=== PATIENT | female | born 1980 | race Caucasian/White ===

== ENCOUNTER 2020-07-29 13:18 | Outpatient (REF) | payer OTHER, SELFPAY ==
[2020-08-01 07:26] LABS: Thyroglobulin Antibody <1 IU/mL (<=1); Thyroglobulin Level 18.5 ng/mL
== END 2020-07-29 13:19 | disposition home or self-care (01) ==
LOC: HO.10HDL 13:18
PROVIDERS: Visit Provider Internal Medicine Endocrinology, Diabetes & Metabolism
DX: E89.0 Postprocedural hypothyroidism (principal)
CPT/HCPCS: 36415; 84432; 84439; 84443; 86800

== ENCOUNTER → 2020-08-28 10:57 | Outpatient (BNVA) | payer OTHER, SELFPAY | PROVIDERS: PCP Physician Assistant; Referring Provider Physician Assistant; Visit Provider Internal Medicine Endocrinology, Diabetes & Metabolism | DX: Z76.89 Persons encountering health services in other specified circumstances (principal) ==

== ENCOUNTER 2020-08-28 11:55 | Outpatient (REF) | payer OTHER, SELFPAY ==
[2020-08-28 14:37] LABS: Free T4 (Free Thyroxine) 1.02 ng/dL (0.71-1.85); Thyroid Stimulating Hormone 0.95 uIU/mL (0.32-4.0)
[2020-09-03 05:33] LABS: Thyroglobulin Antibody <1 IU/mL (<=1); Thyroglobulin Level 15.1 ng/mL
== END 2020-08-28 11:56 | disposition home or self-care (01) ==
LOC: HO.10HDL 11:55
PROVIDERS: Visit Provider Internal Medicine Endocrinology, Diabetes & Metabolism
DX: C73 Malignant neoplasm of thyroid gland (principal)
CPT/HCPCS: 36415; 84432; 84439; 84443; 86800

== ENCOUNTER 2020-09-04 11:16 | Outpatient (REF) | payer OTHER, SELFPAY ==
--- NOTE | 2020-09-04 11:37 | US_ITS ---
EXAMINATION: US THYROID CLINICAL INFORMATION: Malignant neoplasm of thyroid gland. Right thyroidectomy. COMPARISON: Ultrasound soft tissue head/neck dated 10/26/2018 and thyroid ultrasound dated 01/19/2018 TECHNIQUE: Linear transducer aceves-scale and color Doppler examination with attention to the region of the thyroid. FINDINGS: SIZE: Measurements of the thyroid lobes and nodules are given in sagittal, anteroposterior and transverse dimensions respectively. Right Thyroid Lobe: Removed. Left Thyroid Lobe: 4.5 x 1.2 x 2.1 cm, volume 5.9 mL. Previously 4.8 x 1.4 x 1.4 cm, volume 5.2 mL. Parenchyma: The gland echotexture is mildly heterogeneous. Thyroid vascularity is increased. Isthmus: 0.2 cm in maximum AP dimension. Previously 0.2 cm. RIGHT THYROID LOBE: Removed ISTHMUS: No nodules. LEFT THYROID LOBE: There is 1 nodule seen. 1. Location: Lower. Size: 1.3 x 0.7 x 1.2 cm. Previous: 1.2 x 0.6 x 1.0 cm. Nodule characteristics: Isoechoic, smooth margin, no calcification and positive intranodular flow. NODES: There is a right level 3 lymph node that measures 1.8 x 0.4 x 1.3 cm. This is slightly enlarged and demonstrates normal ultrasound morphology and flow. There is a 2.3 x 0.6 x 2 cm left level 2 lymph node. This is enlarged. This demonstrates normal ultrasound morphology and flow. There is a 1 x 0.4 x 0.8 cm left level 3 lymph node. This is normal in size and demonstrates normal ultrasound morphology and flow. There are additional smaller bilateral cervical lymph nodes. US/US thyroid IMPRESSION: Stable left thyroid nodule. Bilateral cervical lymphadenopathy adjacent to the thyroid gland. There are bilateral enlarged level 3 cervical lymph nodes.
== END 2020-09-04 11:17 | disposition home or self-care (01) ==
LOC: HO.HMGCX 11:16
PROVIDERS: PCP Physician Assistant; Visit Provider Internal Medicine Endocrinology, Diabetes & Metabolism
DX: C73 Malignant neoplasm of thyroid gland (principal)
CPT/HCPCS: 76536

== ENCOUNTER 2020-12-23 13:49 | Outpatient (REF) | payer OTHER, SELFPAY ==
[2020-12-23 16:03] LABS: COVID-19 Test Negative (Negative)
== END 2020-12-23 13:50 | disposition home or self-care (01) ==
LOC: HO.LAB 13:49
PROVIDERS: Visit Provider Internal Medicine
DX: Z20.822 Contact with and (suspected) exposure to COVID-19 (principal)
CPT/HCPCS: 36415; 87635; C9803

== ENCOUNTER 2020-12-27 09:37 | Outpatient (REF) | payer OTHER, SELFPAY ==
[2020-12-27 10:24] LABS: Hematocrit 38.5 % (37-47); Hemoglobin 12.9 g/dl (12.0-16.0); Mean Corpuscular HGB Conc 33.5 g/dl (31.0-35.0); Mean Corpuscular Hemoglobin 30.1 pg (27.0-33.0); Mean Platelet Volume 9.9 fL (9.4-12.3); Platelet Count 253 X10*3/uL (160-400); Red Blood Count 4.28 X10*6/uL (4.20-5.50); Red Cell Distribution Width 11.9 % (11.0-16.0); White Blood Count 6.1 X10*3/uL (4.8-10.8)
[2020-12-27 10:52] LABS: Alanine Aminotransferase 12 U/L (0-31); Albumin Level 4.6 g/dL (3.5-5.0); Alkaline Phosphatase 49 U/L (39-117); Aspartate Amino Transferase 17 U/L (5-31); Bilirubin Direct 0.2 mg/dL (0.0-0.5); Bilirubin Total 0.8 mg/dL (0.0-1.0); Iron 113 mcg/dL (30-160); Percent Iron Saturation 34 % (15-50); Total Iron Binding Capacity 329 mcg/dL (228-428); Total Protein 7.4 g/dL (6.5-8.0); Unsaturated Iron Binding 216 ug/dL
[2020-12-27 11:05] LABS: Free T4 (Free Thyroxine) 0.99 ng/dL (0.71-1.85); Thyroid Stimulating Hormone 2.79 uIU/mL (0.32-4.0)
[2020-12-31 02:37] LABS: Thyroglobulin Antibody <1 IU/mL (<=1); Thyroglobulin Level 7.2 ng/mL
== END 2020-12-27 09:38 | disposition home or self-care (01) ==
LOC: HO.10HDL 09:37
PROVIDERS: Absent Provider Physician Assistant; Visit Provider Internal Medicine Endocrinology, Diabetes & Metabolism
DX: C73 Malignant neoplasm of thyroid gland (principal); D50.9 Iron deficiency anemia, unspecified; G44.209 Tension-type headache, unspecified, not intractable; I10 Essential (primary) hypertension
CPT/HCPCS: 36415; 80076; 83540; 84432; 84439; 84443; 85027; 86800

== ENCOUNTER 2021-01-13 09:58 | Outpatient (REF) | payer OTHER, SELFPAY ==
[2021-01-13 10:20] LABS: COVID-19 Test Negative (Negative)
== END 2021-01-13 09:59 | disposition home or self-care (01) ==
LOC: HO.EMPCOV 09:58
PROVIDERS: Visit Provider Internal Medicine
DX: Z20.822 Contact with and (suspected) exposure to COVID-19 (principal)
CPT/HCPCS: 36415; 87635; C9803

== ENCOUNTER → 2021-01-22 09:35 | Outpatient (BNVA) | payer OTHER, SELFPAY | PROVIDERS: PCP Physician Assistant; Visit Provider Internal Medicine Endocrinology, Diabetes & Metabolism ==

== ENCOUNTER 2021-01-24 08:57 | Outpatient (REF) | payer OTHER, SELFPAY ==
[2021-01-24 11:01] LABS: Free T4 (Free Thyroxine) 1.07 ng/dL (0.71-1.85); Thyroid Stimulating Hormone 1.89 uIU/mL (0.32-4.0)
[2021-01-28 07:56] LABS: Thyroglobulin Antibody <1 IU/mL (<=1)
== END 2021-01-24 08:58 | disposition home or self-care (01) ==
LOC: HO.10HDL 08:57
PROVIDERS: Visit Provider Internal Medicine Endocrinology, Diabetes & Metabolism
DX: C73 Malignant neoplasm of thyroid gland (principal); E04.1 Nontoxic single thyroid nodule
CPT/HCPCS: 36415; 84432; 84439; 84443; 86800

== ENCOUNTER 2021-01-30 08:01 | Outpatient (REF) | payer OTHER, SELFPAY ==
--- NOTE | 2021-01-30 08:39 | PM.OP ---
Brief Operative Note Date of Service: 01/30/21 Pre-op diagnosis: PREVIOUS HISTORY OF PAPILLARY THYROID CANCER STATUS POST RIGHT HEMITHYROIDECTOMY, HAS A LEFT LOWER POLE NODULE. Post-op diagnosis: same Procedure: This procedure was explained to the patient. Alternatives, risks and benefits were discussed. Written consent was obtained. After sterile preparation of the skin, fine-needle aspiration biopsy of left lower pole thyroid nodule size 1.3 x 0.7 x 1.2 cm was performed under direct ultrasound guidance to confirm accurate needle placement. Three passes were performed with 27 gauge needles. Sample was submitted to cytology, initial cytology reading was adequate. Two passes were dedicated for [facility] genomic sequencing cargo operations agent test. Patient tolerated procedure well. Aftercare instructions were provided. This nodule is very in inferior to the thyroid. On realtime ultrasound looks to me that this could be a parathyroid gland instead of a nodule. Pathology adequacy reports cells are not typical follicular cell. We will do a stained for PTH to confirm if this is a parathyroid gland. Impression: uncomplicated fine-needle aspiration biopsy of left lower thyroid nodule under direct ultrasound guidance. Surgeon: Izzy De La Garza MD Anesthesia: local (Lidocaine 1% 1 mL) Was an Corporate Investigator used for this Procedure?: No Estimated blood loss (mL): 0 Condition: stable Disposition: same day
== END 2021-01-30 08:02 | disposition home or self-care (01) ==
LOC: HO.US 08:01
PROVIDERS: Visit Provider Internal Medicine Endocrinology, Diabetes & Metabolism
DX: E04.1 Nontoxic single thyroid nodule (principal); C73 Malignant neoplasm of thyroid gland
CPT/HCPCS: 10005; 88172; 88173; 88177; 88342

== ENCOUNTER 2021-06-06 08:52 | Outpatient (REF) | payer OTHER, SELFPAY ==
[2021-06-06 10:23] LABS: MANUAL DIFF FLAG NO
[2021-06-06 10:27] LABS: Basophils Absolute Auto 0.1 X10*3/uL (0.0-0.2); Basophils Percent Auto 0.9 % (0-2); Eosinophils Absolute Auto 0.1 X10*3/uL (0.0-0.4); Eosinophils Percent Auto 2.2 % (0-4); Hematocrit 37.5 % (37-47); Hemoglobin 12.5 g/dl (12.0-16.0); Imm Gran Abs Auto 0.01 X10*3/uL (0.00-0.03); Imm Gran Pct Auto 0.2 % (0.0-0.4); Lymphocytes Absolute Auto 2.1 X10*3/uL (1.2-4.9); Lymphocytes Percent Auto 38.9 % (20-40); Mean Corpuscular HGB Conc 33.3 g/dl (31.0-35.0); Mean Corpuscular Volume 90.1 fL (80-98); Monocytes Absolute Auto 0.4 X10*3/uL (0.1-1.2); Monocytes Percent Auto 6.8 % (2-11); Neutrophils Absolute Auto 2.8 X10*3/uL (2.0-8.3); Platelet Count 263 X10*3/uL (160-400); Red Blood Count 4.16 X10*6/uL (4.20-5.50); Red Cell Distribution Width 12.1 % (11.0-16.0); White Blood Count 5.5 X10*3/uL (4.8-10.8)
[2021-06-06 10:54] LABS: Alanine Aminotransferase 11 U/L (0-31); Albumin Level 4.5 g/dL (3.5-5.0); Alkaline Phosphatase 45 U/L (39-117); Anion Gap 10 (12-20); Aspartate Amino Transferase 15 U/L (5-31); Bilirubin Total 0.8 mg/dL (0.0-1.0); Blood Urea Nitrogen 15 mg/dL (9-16); Calcium 9.4 mg/dL (8.4-10.2); Carbon Dioxide 28 mmol/L (22-29); Chloride 105 mmol/L (96-108); Cholesterol 212 mg/dL; Estimated Glomerular Filt Rate > 60; Glucose Fasting 79 mg/dL (60-99); HDL Cholesterol 49 mg/dL; Iron 141 mcg/dL (30-160); LDL Cholesterol Calculated 148 mg/dl; Percent Iron Saturation 44 % (15-50); Rheumatoid Factor < 15.0 IU/mL (<15.0); Sodium 139 mmol/L (135-145); Total Iron Binding Capacity 318 mcg/dL (228-428); Total Protein 7.3 g/dL (6.5-8.0); Triglycerides 77 mg/dL; Unsaturated Iron Binding 177 ug/dL
[2021-06-06 11:03] LABS: Estimated Average Glucose 97 mg/dL
[2021-06-06 11:15] LABS: Ferritin 28 ng/mL (10-122); TSH reflex Free T4 1.74 uIU/mL (0.32-4.0); Vitamin D 25-OH Total 29.2 ng/mL (>30)
[2021-06-06 11:24] LABS: Vitamin B12 495 pg/mL (200-900)
[2021-06-08 05:21] LABS: Lyme Abs Screen <0.90 index
[2021-06-08 18:57] LABS: Follicle Stimulating Hormone 6.5 mIU/mL; Lutenizing Hormone 4.8 mIU/mL; Triiodothyronine T3 Free 2.8 pg/mL (2.3-4.2)
[2021-06-09 13:45] LABS: CRP High Sensitivity <0.3 mg/L
[2021-06-09 16:12] LABS: Anti Nuclear Antibody Screen NEGATIVE (NEGATIVE)
[2021-06-09 19:32] LABS: DHEA Sulfate 119 mcg/dL (23-266); Thyroglobulin Antibodies 1 IU/mL (< or = 1); Thyroid Peroxidase Antibodies 168 IU/mL (<9)
[2021-06-10 01:12] LABS: Insulin Level Total 4.1 uIU/mL
[2021-06-11 13:36] LABS: Rocky Mtn. Spot. Fever IgG Ab Not Detected (Not Detected); Rocky Mtn.Spot. Fever IgM Ab Not Detected (Not Detected)
== END 2021-06-06 08:53 | disposition home or self-care (01) ==
LOC: HO.10HDL 08:52
PROVIDERS: Visit Provider Nurse Practitioner Family
DX: Z13.89 Encounter for screening for other disorder (principal)
CPT/HCPCS: 36415; 80053; 80061; 82306; 82607; 82627; 82672; 82728; 83001; 83002; 83036; 83525; 83540; 84402; 84403; 84443; 84481; 85025; 86038; 86039; 86141; 86376; 86431; 86617; 86618; 86757; 86800

== ENCOUNTER 2021-06-12 09:58 | Outpatient (REF) | payer OTHER, SELFPAY ==
--- NOTE | ~2021-06-12 | US_ITS ---
EXAMINATION: US THYROID CLINICAL INFORMATION: Malignant neoplasm of thyroid. Follow up nodules. COMPARISON: Ultrasound soft tissue head/neck thyroid dated 09/04/2020 and 01/19/2018. TECHNIQUE: Linear transducer grayscale and color Doppler examination with attention to the region of the thyroid. FINDINGS: SIZE: Measurements of the solitary left thyroid lobe and nodules are given in sagittal, anteroposterior and transverse dimensions respectively. Right Thyroid Lobe: Surgically absent. Left Thyroid Lobe: 3.5 x 1.2 x 1.4 cm, volume 2.9 mL. Previously 4.5 x 1.2 x 2.1 cm, volume 5.9 mL. Parenchyma: The gland echotexture is mildly heterogeneous. Thyroid vascularity is normal. Isthmus: 0.2 cm in maximum AP dimension. Previously 0.2 cm. No focal thyroid nodule is seen. There is a 1.1 x 0.6 x 1 cm lesion iso to slightly hypoechoic to the thyroid gland inferior to the left lobe. This demonstrates some vascularity. This measured 1.3 x 0.7 x 1.2 cm on prior exam and is not appreciably changed. This was found to represent a parathyroid tissue on fine-needle aspiration January 2021. NODES: There is a right level 2/submandibular lymph node. This measures 2.1 x 0.3 x 1.5 cm compared to 1.8 x 0.4 x 1.3 cm is not appear appreciably changed. There is a left level 2/submandibular lymph node. This measures 2.3 x 0.5 x 2.2 cm compared to 2.3 x 0.6 x 2 cm on prior exam does not appear appreciably changed. There is a left level 3 lymph node measures 1 x 0.4 x 0.8 cm. This measured 1.1 x 0.4 x 0.9 cm on prior exam and does not appear appreciably changed.. US/US thyroid IMPRESSION: Post right thyroidectomy. Stable appearing bilateral cervical lymph nodes and nodule inferior to the left lobe that was found to represent parathyroid gland. ACR TI-RADS RECOMMENDATION REFERENCE: Ultrasound-guided fine-needle aspiration, followup ultrasound, no further follow up. * TR1 (0 point) and TR 2 (2 points): No FNA or follow up * TR3 (3 points): FNA if more than or equal to 2.5 cm in maximum dimension, followup ultrasound in 1, 3 and 5 years if 1.5 to 2.4 cm in maximum dimension. * TR4 (4-6 points): FNA if more than or equal to 1.5 cm in maximum dimension, followup ultrasound in 1, 2, 3 and 5 years if 1 to 1.4 cm in maximum dimension. * TR5 (more than or equal to 7 points): FNA if more than or equal to 1 cm in maximum dimension, followup ultrasound every year for 5 years if 0.5 to 0.9 cm in maximum dimension. * TR3, TR4 or TR5 nodules that are below the size threshold for follow up receive no follow up.
== END 2021-06-12 09:59 | disposition home or self-care (01) ==
LOC: HO.US 09:58
PROVIDERS: Visit Provider Nurse Practitioner Family
DX: C73 Malignant neoplasm of thyroid gland (principal)
CPT/HCPCS: 76536

== ENCOUNTER 2021-07-29 08:05 | Outpatient (REF) | payer OTHER, SELFPAY ==
[2021-07-29 09:07] LABS: HCG Quantitative < 2 mIU/mL
== END 2021-07-29 08:06 | disposition home or self-care (01) ==
LOC: HO.LAB 08:05
PROVIDERS: PCP Nurse Practitioner Family; Visit Provider Nurse Practitioner Family
DX: N92.5 Other specified irregular menstruation (principal)
CPT/HCPCS: 36415; 84702

== ENCOUNTER 2021-08-15 17:24 | Emergency (ER) | payer OTHER, SELFPAY ==
[2021-08-15 17:45] VITALS: BP 123/78; PULSE 95; RESP 20; O2SAT 99; BMI 22.6
--- NOTE | 2021-08-15 20:36 | ED_ITS ---
HPI - Nausea/Vomiting/Diarrhea General Chief complaint: Nausea/Vomiting/Diarrhea Stated complaint: nausea dizzy, body aches ,rash Time Seen by Provider: 08/15/21 20:10 Source: patient Mode of arrival: ambulatory Limitations: no limitations History of Present Illness HPI Narrative: Patient with nausea vomiting body aches rash on the left side of the face for last 5 days no fever no chills no cough no shortness of breath patient already been vaccinated against COVID no other family member sick Related Data Home Medications Medication Instructions Recorded Confirmed escitalopram oxalate 10 mg tablet 10 mg PO DAILY 08/28/20 04/24/21 lisdexamfetamine 30 mg capsule 30 mg PO QAM 04/24/21 04/24/21 (Vyvanse) Previous Rx's Medication Instructions Recorded levothyroxine 88 mcg tablet 88 mcg PO QAM #90 tab 06/25/21 diphenhydramine HCl 25 mg capsule 25 mg PO Q6H PRN #30 cap 08/15/21 (Benadryl) ondansetron 4 mg disintegrating 4 mg PO Q6-8H PRN #7 tab 08/15/21 tablet prednisone 20 mg tablet 40 mg PO DAILY #10 tab 08/15/21 Allergies Allergy/AdvReac Type Severity Reaction Status Date / Time No Known Allergies Allergy Verified 04/24/21 16:10 Review of Systems Review of Systems: Yes all other systems are reviewed and are negative [facility] Past Medical History Medical History (Updated 08/15/21 @ 22:56 by Marquis Abdalla MD) ADHD Anxiety Facial skin lesion Family history of colon cancer Family history of skin cancer Post-surgical hypothyroidism Primary thyroid cancer Surgical History History of tympanostomy tube placement Hx of adenoidectomy Hx of thyroidectomy Hx of tonsillectomy Hx of wisdom tooth extraction Family History Family History Father No problems noted. Mother Heart murmur Diabetes mellitus Stroke Social History Social History Housing: House Patient Tobacco Use Status: Never used Tobacco e-Cigarette/Vaping Use: Never Used Second Hand Smoke Exposure: No Use of substances other than those prescribed or required for medical reasons: No Advance Directives: No Advance Directives Information Provided: Yes Current occupational status: employed Physical Exam Vital Signs: Vital Signs: Last Vital Signs Temp 97.7 F 08/15/21 21:20 Pulse 66 08/15/21 21:20 Resp 18 08/15/21 21:20 BP 101/62 08/15/21 21:20 Pulse Ox 100 08/15/21 21:20 BMI result Body Mass Index 22.6 Appearance: Alert. Oriented X3. Mild distress Eyes: PERRLA, no pallor icterus ENT: Pharynx normal. Oral Mucosa moist Neck: Normal inspection. Neck supple. CVS: Normal heart rate and rhythm. Pulses normal. Respiratory: No respiratory distress. Equal air entry bilateral, no wheez ing/rales/rhonchi Abdomen: Soft and nontender. Bowel sounds are present, no severe tenderness Skin: Skin warm and dry. Erythematous rash on the left side of the face Normal skin turgor. Extremities: No lower extremity edema. No calf tenderness Neuro: Oriented X 3. MDM - Nausea/Vomiting/Diarrhea MDM Narrative Medical decision making narrative: Patient feeling much better now rash has improved slightly no nausea no vomiting discharge patient home on Zofran , prednisone and Benadryl Lab Data Attestation: I reviewed the patient's lab results. Result diagrams: 08/15/21 20:38 08/15/21 20:38 Labs: Lab Results 08/15/21 08/15/21 08/15/21 Range/Units 20:38 20:38 20:38 WBC 4.9 (4.8-10.8) X10*3/uL RBC 4.53 (4.20-5.50) X10*6/uL Hgb 13.9 (12.0-16.0) g/dl Hct 40.7 (37.0-47.0) % MCV 89.8 (80.0-98.0) fL MCH 30.7 (27.0-33.0) pg MCHC 34.2 (31.0-35.0) g/dl RDW 11.9 (11.0-16.0) % Plt Count 204 (160-400) X10*3/uL MPV 9.3 L (9.4-12.3) fL Immature Gran % (Auto) 0.4 (0.0-0.4) % Neut % (Auto) 70.3 (45-73) % Lymph % (Auto) 17.0 L (20-40) % Liberty % (Auto) 10.9 (2-11) % Eos % (Auto) 1.0 (0-4) % Baso % (Auto) 0.4 (0-2) % Lymph # (Auto) 0.8 L (1.2-4.9) X10*3/uL Liberty # (Auto) 0.5 (0.1-1.2) X10*3/uL Eos # (Auto) 0.1 (0.0-0.4) X10*3/uL Baso # (Auto) 0.0 (0.0-0.2) X10*3/uL Abs Immat Gran (auto) 0.02 (0.00-0.03) X10*3/uL Absolute Neuts (auto) 3.5 (2.0-8.3) x10*3/uL Absolute Nucleated RBC 0.000 (0.0-0.012) X10*3/uL Nucleated RBC % (auto) 0.0 (0.0-0.2) /100WBC Sodium 139 (135-145) mmol/L Potassium 3.8 (3.3-5.1) mmol/L Chloride 105 (96-108) mmol/L Carbon Dioxide 26 (22-29) mmol/L Anion Gap 12 (12-20) BUN 15 (9-16) mg/dL Creatinine 0.76 (0.5-1.4) mg/dL Estim Creat Clear Calc 75.7 Estimated GFR > 60 Random Glucose 98 (60-115) mg/dL Calcium 8.7 D (8.4-10.2) mg/dL Magnesium 1.9 (1.6-2.6) mg/dL Total Bilirubin 0.6 (0.0-1.0) mg/dL AST 19 (5-31) U/L ALT 17 (0-31) U/L Alkaline Phosphatase 49 (39-117) U/L Total Protein 6.8 (6.5-8.0) g/dL Albumin 4.2 (3.5-5.0) g/dL Urine Color Urine Appearance Urine pH (5.0-8.0) Ur Specific Arco (1.005-1.025) Urine Protein (NEG-TRACE) MG/DL Urine Glucose (UA) (NEG) MG/DL Urine Ketones (NEG) MG/DL Urine Blood (NEG) Urine Nitrite (NEG) Ur Leukocyte Esterase (NEG) Urine Test (NEGATIVE) COVID-19 (CASSIDY) Negative (Negative) COVID-19 Clin Com See Note 08/15/21 08/15/21 Range/Units 22:00 22:00 WBC (4.8-10.8) X10*3/uL RBC (4.20-5.50) X10*6/uL Hgb (12.0-16.0) g/dl Hct (37.0-47.0) % MCV (80.0-98.0) fL MCH (27.0-33.0) pg MCHC (31.0-35.0) g/dl RDW (11.0-16.0) % Plt Count (160-400) X10*3/uL MPV (9.4-12.3) fL Immature Gran % (Auto) (0.0-0.4) % Neut % (Auto) (45-73) % Lymph % (Auto) (20-40) % Liberty % (Auto) (2-11) % Eos % (Auto) (0-4) % Baso % (Auto) (0-2) % Lymph # (Auto) (1.2-4.9) X10*3/uL Liberty # (Auto) (0.1-1.2) X10*3/uL Eos # (Auto) (0.0-0.4) X10*3/uL Baso # (Auto) (0.0-0.2) X10*3/uL Abs Immat Gran (auto) (0.00-0.03) X10*3/uL Absolute Neuts (auto) (2.0-8.3) x10*3/uL Absolute Nucleated RBC (0.0-0.012) X10*3/uL Nucleated RBC % (auto) (0.0-0.2) /100WBC Sodium (135-145) mmol/L Potassium (3.3-5.1) mmol/L Chloride (96-108) mmol/L Carbon Dioxide (22-29) mmol/L Anion Gap (12-20) BUN (9-16) mg/dL Creatinine (0.5-1.4) mg/dL Estim Creat Clear Calc Estimated GFR Random Glucose (60-115) mg/dL Calcium (8.4-10.2) mg/dL Magnesium (1.6-2.6) mg/dL Total Bilirubin (0.0-1.0) mg/dL AST (5-31) U/L ALT (0-31) U/L Alkaline Phosphatase (39-117) U/L Total Protein (6.5-8.0) g/dL Albumin (3.5-5.0) g/dL Urine Color YELLOW Urine Appearance CLEAR Urine pH 6.0 (5.0-8.0) Ur Specific Arco >= 1.030 H (1.005-1.025) Urine Protein TRACE (NEG-TRACE) MG/DL Urine Glucose (UA) NEG (NEG) MG/DL Urine Ketones >=80 (NEG) MG/DL Urine Blood NEG (NEG) Urine Nitrite NEG (NEG) Ur Leukocyte Esterase NEG (NEG) Urine Test NEGATIVE (NEGATIVE) COVID-19 (CASSIDY) (Negative) COVID-19 Clin Com Discharge Plan Discharge Clinical Impression: Gastroenteritis Allergic reaction Qualifiers: Encounter type: initial encounter Qualified Code(s): T78.40XA - Allergy, unspecified, initial encounter Patient Disposition: Home, Self-Care Instructions: Acute Nausea and Vomiting (ED), General Allergic Reaction (ED) Additional Instructions: Drink plenty of fluids Medication for nausea Benadryl and prednisone for allergic reaction etiology not clear Prescriptions: New prednisone 20 mg tablet 40 mg PO DAILY Qty: 10 RF: 0 ondansetron 4 mg tablet,disintegrating 4 mg PO Q6-8H PRN (Reason: nausea and vomiting) Qty: 7 RF: 0 diphenhydramine HCl [Benadryl] 25 mg capsule 25 mg PO Q6H PRN (Reason: allergic reaction) Qty: 30 RF: 0 No Action levothyroxine 88 mcg tablet 88 mcg PO QAM Qty: 90 RF: 1 Vyvanse 30 mg capsule 30 mg PO QAM RF: 0 escitalopram oxalate 10 mg tablet 10 mg PO DAILY RF: 0
[2021-08-15] MEDS: 0.9 % Sodium Chloride 1,000 ML 999 ML IVCONT (20:39)
[2021-08-15] MEDS: diphenhydrAMINE HCL 50 MG/ML VIAL 25 MG IVPUSH (20:39)
[2021-08-15] MEDS: ondansetron HCL 4 MG/2 ML VIAL IVPUSH (20:39)
[2021-08-15] MEDS: Ketorolac Tromethamine 30 MG/ML VIAL IVPUSH (20:39)
[2021-08-15 20:45] LABS: MANUAL DIFF FLAG NO
[2021-08-15 20:46] LABS: Basophils Percent Auto 0.4 % (0-2); Eosinophils Absolute Auto 0.1 X10*3/uL (0.0-0.4); Hematocrit 40.7 % (37.0-47.0); Hemoglobin 13.9 g/dl (12.0-16.0); Imm Gran Abs Auto 0.02 X10*3/uL (0.00-0.03); Imm Gran Pct Auto 0.4 % (0.0-0.4); Lymphocytes Absolute Auto 0.8 X10*3/uL (1.2-4.9); Mean Corpuscular HGB Conc 34.2 g/dl (31.0-35.0); Mean Corpuscular Hemoglobin 30.7 pg (27.0-33.0); Mean Corpuscular Volume 89.8 fL (80.0-98.0); Mean Platelet Volume 9.3 fL (9.4-12.3); Monocytes Absolute Auto 0.5 X10*3/uL (0.1-1.2); Monocytes Percent Auto 10.9 % (2-11); Neutrophils Absolute Auto 3.5 x10*3/uL (2.0-8.3); Neutrophils Percent Auto 70.3 % (45-73); Platelet Count 204 X10*3/uL (160-400); Red Blood Count 4.53 X10*6/uL (4.20-5.50); Red Cell Distribution Width 11.9 % (11.0-16.0); White Blood Count 4.9 X10*3/uL (4.8-10.8)
[2021-08-15 21:00] LABS: COVID-19 Test Negative (Negative)
[2021-08-15 21:10] LABS: Alanine Aminotransferase 17 U/L (0-31); Albumin Level 4.2 g/dL (3.5-5.0); Alkaline Phosphatase 49 U/L (39-117); Anion Gap 12 (12-20); Aspartate Amino Transferase 19 U/L (5-31); Bilirubin Total 0.6 mg/dL (0.0-1.0); Blood Urea Nitrogen 15 mg/dL (9-16); Calcium 8.7 mg/dL (8.4-10.2); Carbon Dioxide 26 mmol/L (22-29); Chloride 105 mmol/L (96-108); Creatinine Clr Calc Pharmacy 75.7; Estimated Glomerular Filt Rate > 60; Glucose Random 98 mg/dL (60-115); Magnesium 1.9 mg/dL (1.6-2.6); Potassium 3.8 mmol/L (3.3-5.1); Sodium 139 mmol/L (135-145); Total Protein 6.8 g/dL (6.5-8.0)
[2021-08-15 21:20] VITALS: BP 101/62; PULSE 66; RESP 18; TEMP 36.5; O2SAT 100
[2021-08-15 22:06] LABS: Appearance Urine CLEAR; Color Urine YELLOW; Glucose Urine UA NEG (NEG); Leukocyte Esterase Urine NEG (NEG); Nitrite Urine NEG (NEG); Specific Gravity - Urine >= 1.030 (1.005-1.025); Urine Blood NEG (NEG); Urine Ketones >=80 MG/DL (NEG); Urine Protein TRACE MG/DL (NEG-TRACE)
[2021-08-15 22:08] LABS: UPreg QC Valid YES; Urine Pregnancy NEGATIVE (NEGATIVE)
[2021-08-15] MEDS: dexAMETHasone sod phosphate 10 MG/ML VIAL IVPUSH (23:56)
== END 2021-08-16 00:07 | disposition home or self-care (01) ==
PROVIDERS: Emergency Provider Internal Medicine; PCP Nurse Practitioner Family
DX: K52.9 Noninfective gastroenteritis and colitis, unspecified (principal); T78.40XA Allergy, unspecified, initial encounter; X58.XXXA Exposure to other specified factors, initial encounter; Z20.822 Contact with and (suspected) exposure to COVID-19
CPT/HCPCS: 36415; 80053; 81003; 81025; 83735; 85025; 87635; 96361; 96374; 96375; 99284; J1100; J1200; J1885; J2405

== ENCOUNTER 2021-11-06 10:21 | Outpatient (REF) | payer OTHER, SELFPAY ==
[2021-11-06 11:48] LABS: TSH reflex Free T4 4.78 uIU/mL (0.32-4.0)
[2021-11-06 12:22] LABS: Free T4 (Free Thyroxine) 1.08 ng/dL (0.71-1.85)
== END 2021-11-06 10:22 | disposition home or self-care (01) ==
LOC: HO.10HDL 10:21
PROVIDERS: Visit Provider Nurse Practitioner Family
DX: E03.9 Hypothyroidism, unspecified (principal)
CPT/HCPCS: 36415; 84439; 84443

== ENCOUNTER 2022-01-08 11:41 | Outpatient (REF) | payer OTHER, SELFPAY ==
[2022-01-08 14:46] LABS: Influenza A PCR NEGATIVE (Negative); Influenza B PCR NEGATIVE (Negative); Resp Syncy Virus RNA Qual PCR NEGATIVE (Negative); SARS COV2 PCR INHOUSE NEGATIVE (Negative)
== END 2022-01-08 11:42 | disposition home or self-care (01) ==
LOC: HO.LAB 11:41
PROVIDERS: Visit Provider Nurse Practitioner Acute Care
DX: Z20.822 Contact with and (suspected) exposure to COVID-19 (principal); R68.89 Other general symptoms and signs
CPT/HCPCS: 0241U

== ENCOUNTER 2022-02-11 09:32 | Outpatient (REF) | payer OTHER, SELFPAY ==
[2022-02-11 10:49] LABS: Alanine Aminotransferase 18 U/L (0-31); Aspartate Amino Transferase 21 U/L (5-31)
[2022-02-11 11:13] LABS: Free T4 (Free Thyroxine) 1.04 ng/dL (0.71-1.85); Thyroid Stimulating Hormone 1.53 uIU/mL (0.32-4.0); Vitamin D 25-OH Total 28.4 ng/mL (>30)
[2022-02-17 17:17] LABS: Thyroglobulin 6.8 ng/mL
== END 2022-02-11 09:33 | disposition home or self-care (01) ==
LOC: HO.10HDL 09:32
PROVIDERS: Visit Provider Internal Medicine
DX: Z00.01 Encounter for general adult medical examination with abnormal findings (principal); C73 Malignant neoplasm of thyroid gland; E03.9 Hypothyroidism, unspecified
CPT/HCPCS: 36415; 82306; 84432; 84439; 84443; 84450; 84460

== ENCOUNTER → 2022-02-13 08:44 | Outpatient (BNVA) | payer OTHER, SELFPAY | PROVIDERS: PCP Internal Medicine; Visit Provider Internal Medicine Endocrinology, Diabetes & Metabolism | DX: Z13.89 Encounter for screening for other disorder (principal) ==

== ENCOUNTER 2022-07-06 07:43 | Outpatient (REF) | payer OTHER, SELFPAY ==
[2022-07-07 13:06] LABS: Calcium (PTHI) 9.2 mg/dL (8.6-10.2); PTHI 31 pg/mL (16-77)
== END 2022-07-06 07:44 | disposition home or self-care (01) ==
LOC: HO.10HDL 07:43
PROVIDERS: PCP Internal Medicine; Visit Provider Internal Medicine Endocrinology, Diabetes & Metabolism
DX: D35.1 Benign neoplasm of parathyroid gland (principal)
CPT/HCPCS: 36415; 83970

== ENCOUNTER 2022-09-21 11:12 | Outpatient (REF) | payer OTHER, SELFPAY ==
[2022-09-21 14:00] LABS: MANUAL DIFF FLAG NO
[2022-09-21 14:10] LABS: Basophils Absolute Auto 0.1 X10*3/uL (0.0-0.2); Basophils Percent Auto 0.9 % (0-2); Eosinophils Absolute Auto 0.2 X10*3/uL (0.0-0.4); Hematocrit 39.1 % (37.0-47.0); Hemoglobin 13.2 g/dl (12.0-16.0); Imm Gran Abs Auto 0.01 X10*3/uL (0.00-0.03); Imm Gran Pct Auto 0.2 % (0.0-0.4); Lymphocytes Absolute Auto 2.3 X10*3/uL (1.2-4.9); Lymphocytes Percent Auto 39.6 % (20-40); Mean Corpuscular HGB Conc 33.8 g/dl (31.0-35.0); Mean Corpuscular Hemoglobin 30.3 pg (27.0-33.0); Mean Corpuscular Volume 89.9 fL (80.0-98.0); Mean Platelet Volume 10.1 fL (9.4-12.3); Monocytes Absolute Auto 0.5 X10*3/uL (0.1-1.2); Monocytes Percent Auto 8.5 % (2-11); Neutrophils Absolute Auto 2.8 x10*3/uL (2.0-8.3); Neutrophils Percent Auto 47.8 % (45-73); Platelet Count 313 X10*3/uL (160-400); Red Blood Count 4.35 X10*6/uL (4.20-5.50); Red Cell Distribution Width 11.9 % (11.0-16.0); White Blood Count 5.8 X10*3/uL (4.8-10.8)
[2022-09-21 14:19] LABS: Appearance Urine Clear; Color Urine Yellow; Glucose Urine UA Negative (Negative); Leukocyte Esterase Urine Negative (Negative); Nitrite Urine Negative (Negative); PH 8.5 (5.0-9.0); Specific Gravity - Urine 1.015 (1.005-1.025); Urine Blood Negative (Negative); Urine Ketones Negative (Negative); Urine Protein Negative (Neg-Trace)
[2022-09-21 14:40] LABS: Thyroid Stimulating Hormone 2.94 uIU/mL (0.32-4.0)
[2022-09-21 14:50] LABS: Alanine Aminotransferase 19 U/L (0-31); Albumin Level 4.5 g/dL (3.5-5.0); Alkaline Phosphatase 51 U/L (39-117); Anion Gap 11 (12-20); Aspartate Amino Transferase 20 U/L (5-31); Bilirubin Total 0.5 mg/dL (0.0-1.0); Blood Urea Nitrogen 12 mg/dL (9-16); C Reactive Protein < 0.04 mg/dL (< or = 0.50); Calcium 9.1 mg/dL (8.4-10.2); Carbon Dioxide 27 mmol/L (22-29); Chloride 104 mmol/L (96-108); Estimated Glomerular Filt Rate > 60; Glucose Fasting 85 mg/dL (60-99); Potassium 3.6 mmol/L (3.3-5.1); Sodium 138 mmol/L (135-145); Total Protein 7.3 g/dL (6.5-8.0)
[2022-09-21 14:57] LABS: Erythrocyte Sedimentation Rate 7 MM/HR (0-20)
[2022-09-23 13:33] LABS: Anti Nuclear Antibody Screen NEGATIVE (NEGATIVE)
== END 2022-09-21 11:13 | disposition home or self-care (01) ==
LOC: HO.HMGCLDS 11:12
PROVIDERS: Advanced Practice Midwife; PCP Internal Medicine; Visit Provider Internal Medicine
DX: R07.89 Other chest pain (principal); M25.50 Pain in unspecified joint; R21 Rash and other nonspecific skin eruption; R53.83 Other fatigue; N64.4 Mastodynia; N64.52 Nipple discharge; E89.0 Postprocedural hypothyroidism
CPT/HCPCS: 36415; 80053; 81003; 84146; 84443; 85025; 85652; 86038; 86039; 86140

== ENCOUNTER 2022-09-22 14:20 | Outpatient (REF) | payer OTHER, SELFPAY ==
[2022-09-29 16:30] LABS: HPV mRNA E6/E7 rflx Not Detected (Not Detected)
== END 2022-09-22 14:21 | disposition home or self-care (01) ==
LOC: HO.LNP 14:20
PROVIDERS: PCP Internal Medicine; Visit Provider Advanced Practice Midwife
DX: Z01.419 Encounter for gynecological examination (general) (routine) without abnormal findings (principal); Z11.51 Encounter for screening for human papillomavirus (HPV)
CPT/HCPCS: 87624; 88142

== ENCOUNTER → 2022-10-14 13:52 | Outpatient (BNVA) | payer OTHER, SELFPAY | PROVIDERS: PCP Internal Medicine; Visit Provider Physician Assistant | DX: Z13.89 Encounter for screening for other disorder (principal) | CPT/HCPCS: 99203 ==

== ENCOUNTER 2022-10-16 14:01 | Outpatient (RCR) | payer OTHER, SELFPAY ==
--- NOTE | 2022-10-16 14:58 | MHC.OT.EP ---
[address] [phone] Occupational Therapy Plan of Care Date of Evaluation: 10/16/22 Diagnosis: B/L Lateral Epicondylitis Pain Location: Right lateral elbow and dorsal forearm over mobile wad, mild pain in left lateral elbow Pain Score: 4 Aggravating Factors: Grasping, reaching and grabbing/lifting, prolonged grasp Alleviating Factors: Ibuprophen occasionally on the weekend Assessment: 41 yo right hand dominant female presents w/ c/o bilateral elbow pain, no specific trauma noted, started a few months ago and more prominent in right arm than left. On assessment, symptoms are consistent w/ bilateral lateral epicondylitis. She has tenderness to palpate right lateral elbow and dorsal forearm musculature, slight tenderness as well in left lateral elbow. 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 I have educated her on joint protection and activity modification, as well as counter-force brace use and sleep position modifications. She has been given stretches and educated on progression of exercises as pain decreases, but she may benefit from follow up at some point to add resisted strengthening, although at this time I anticipate she will have improvements w/ current recommendations and modifications. Frequency and Duration: The patient will be seen PRN Short Term Goals: Ind w/ HEP Ind w/ use of CFB Good follow through w/ joint protection and activity modification Progress to strengthening program Treatment Plan: Therapeutic Exercise Therapeutic Activity Home Exercise Program Patient Education ADL Training MHP Cold Packs Soft Tissue Mobilization Kinesiotaping Electronically Signed By: Marcela Davalos OTR/L CHT Please Sign and return to therapist. Thank you once again for your referral.
== END 2022-12-04 09:40 | disposition home or self-care (01) ==
LOC: HO.OT 14:01
PROVIDERS: PCP Internal Medicine; Visit Provider Orthopaedic Surgery
DX: M77.11 Lateral epicondylitis, right elbow (principal); M77.12 Lateral epicondylitis, left elbow
CPT/HCPCS: 97165; 97535

== ENCOUNTER 2022-11-10 09:10 | Outpatient (REF) | payer OTHER, SELFPAY ==
--- NOTE | ~2022-11-10 | MM_ITS ---
EXAMINATION: MM SCREENING DIGITAL BREAST TOMOSYNTHESIS, BILATERAL CLINICAL INFORMATION: Screening. Asymptomatic. The lifetime risk of breast cancer based on the Tyrer-Cuzick Model is 18.5%. COMPARISON: Mammography: June 29, 2019 TECHNIQUE: Digital breast tomosynthesis is performed in both the craniocaudal and mediolateral oblique views along with computer-aided detection (CAD). Synthesized 2D images are generated from the tomosynthesis. FINDINGS: There are scattered areas of fibroglandular density (ACR BI-RADS breast composition Category b). There are no new significant masses, abnormal calcifications, or other abnormalities. There is again noted to be a circumscribed density about the lateral aspect of the left breast consistent with intramammary lymph node. MM/MM tomosynthesis screening BI IMPRESSION: No significant changes ASSESSMENT: BI-RADS 2: Benign RECOMMENDATION: Routine annual mammography screening. This patient's information was entered into a reminder system with a target due date for their next mammogram.
== END 2022-11-10 09:11 | disposition home or self-care (01) ==
LOC: HO.MAMMO 09:10
PROVIDERS: PCP Internal Medicine; Visit Provider Advanced Practice Midwife
DX: Z12.31 Encounter for screening mammogram for malignant neoplasm of breast (principal)
CPT/HCPCS: 77063; 77067

== ENCOUNTER 2023-01-20 08:12 | Outpatient (REF) | payer OTHER, SELFPAY ==
[2023-01-20 08:37] LABS: MANUAL DIFF FLAG NO
[2023-01-20 08:43] LABS: Basophils Percent Auto 0.7 % (0-2); Eosinophils Absolute Auto 0.2 X10*3/uL (0.0-0.4); Eosinophils Percent Auto 3.2 % (0-4); Hematocrit 37.2 % (37.0-47.0); Hemoglobin 12.4 g/dl (12.0-16.0); Imm Gran Abs Auto 0.01 X10*3/uL (0.00-0.03); Imm Gran Pct Auto 0.2 % (0.0-0.4); Lymphocytes Absolute Auto 2.1 X10*3/uL (1.2-4.9); Lymphocytes Percent Auto 38.9 % (20-40); Mean Corpuscular HGB Conc 33.3 g/dl (31.0-35.0); Mean Corpuscular Hemoglobin 29.9 pg (27.0-33.0); Mean Corpuscular Volume 89.6 fL (80.0-98.0); Mean Platelet Volume 9.4 fL (9.4-12.3); Monocytes Absolute Auto 0.3 X10*3/uL (0.1-1.2); Neutrophils Absolute Auto 2.7 x10*3/uL (2.0-8.3); Platelet Count 239 X10*3/uL (160-400); Red Blood Count 4.15 X10*6/uL (4.20-5.50); White Blood Count 5.4 X10*3/uL (4.8-10.8)
[2023-01-20 08:56] LABS: Estimated Average Glucose 100 mg/dL; Hemoglobin A1c % 5.1 %
[2023-01-20 09:44] LABS: Alanine Aminotransferase 14 U/L (0-31); Albumin Level 4.3 g/dL (3.5-5.0); Alkaline Phosphatase 54 U/L (39-117); Anion Gap 8 (12-20); Aspartate Amino Transferase 18 U/L (5-31); Bilirubin Total 0.5 mg/dL (0.0-1.0); Blood Urea Nitrogen 15 mg/dL (9-16); Carbon Dioxide 29 mmol/L (22-29); Chloride 107 mmol/L (96-108); Cholesterol 230 mg/dL; Estimated Glomerular Filt Rate > 60; Glucose Random 86 mg/dL (60-115); HDL Cholesterol 51 mg/dL; LDL Cholesterol Calculated 167 mg/dl; Sodium 140 mmol/L (135-145); Triglycerides 64 mg/dL
[2023-01-20 10:04] LABS: Folate 12.8 ng/mL (> or = 4.0); TSH reflex Free T4 2.54 uIU/mL (0.32-4.0); Vitamin B12 850 pg/mL (200-900); Vitamin D 25-OH Total 32.7 ng/mL (>30)
[2023-01-20 10:57] LABS: Appearance Urine Clear; Color Urine Yellow; Glucose Urine UA Negative (Negative); Leukocyte Esterase Urine Trace (Negative); Nitrite Urine Negative (Negative); Specific Gravity - Urine 1.015 (1.005-1.025); UMIC TRIGGER UA YES; Urine Blood Large (3+) (Negative); Urine Ketones Negative (Negative); Urine Protein Negative (Neg-Trace)
[2023-01-20 11:15] LABS: Bacteria Urine Trace (None Seen); Hyaline Casts Urine 0-2 /LPF (0-2); RBC Urine 0-2 /HPF (0-2); Squamous Epithelial Cell Urine 0-2 /HPF (0-2); WBC Urine 0-5 /HPF (0-5)
[2023-01-22 07:29] LABS: DHEA Sulfate 102 mcg/dL (19-237); Follicle Stimulating Hormone 16.2 mIU/mL; Lutenizing Hormone 5.4 mIU/mL
[2023-01-22 10:33] LABS: Thyroglobulin 5.7 ng/mL; Thyroglobulin Antibodies <1 IU/mL (< or = 1); Thyroid Peroxidase Antibodies 43 IU/mL (<9)
[2023-01-26 15:28] LABS: Progesterone 0.2 ng/mL
[2023-01-27 02:13] LABS: Testosterone, Total 10 ng/dL (2-45)
[2023-01-30 16:39] LABS: Estrogen 194.9 pg/mL
== END 2023-01-20 08:13 | disposition home or self-care (01) ==
LOC: HO.LAB 08:12
PROVIDERS: PCP Nurse Practitioner Family; Visit Provider Nurse Practitioner Family
DX: Z13.220 Encounter for screening for lipoid disorders (principal); Z13.6 Encounter for screening for cardiovascular disorders; E55.9 Vitamin D deficiency, unspecified; R63.5 Abnormal weight gain; R20.2 Paresthesia of skin
CPT/HCPCS: 80053; 80061; 81001; 82306; 82607; 82627; 82672; 82746; 83001; 83002; 83036; 84144; 84403; 84432; 84443; 85025; 86376; 86800

== ENCOUNTER 2023-01-26 16:03 | Outpatient (REF) | payer OTHER, SELFPAY ==
--- NOTE | ~2023-01-26 | US_ITS ---
Examination: Ultrasound extremity nonvascular. Clinical indications: Mass level along bilateral lower extremities. TECHNIQUE: Limited focal ultrasound imaging was performed through the right and left legs, nonvascular. FINDINGS: Along the right anterior thigh mid section there is slightly hyperechoic lesion measuring 3.0 3.7 x 1.3 cm. There is a second lesion slightly smaller measuring 0.4 x 0.6 x 0.4 cm. Along the left anterior thigh mid section there is isotope hyperechoic area measuring 3.9 x 3.0 x 1.1 cm. US/US extremity nonvascular IMPRESSION: Palpable lesions in right and left thigh are slightly hyperechoic to muscle and are suspicious for intramuscular lipomas. No increased vascularity seen.
== END 2023-01-26 16:04 | disposition home or self-care (01) ==
LOC: HO.US 16:03
PROVIDERS: PCP Nurse Practitioner Family; Visit Provider Nurse Practitioner Family
DX: R22.43 Localized swelling, mass and lump, lower limb, bilateral (principal)
CPT/HCPCS: 76882

== ENCOUNTER → 2023-02-24 11:26 | Outpatient (BNVA) | payer OTHER, SELFPAY | PROVIDERS: PCP Nurse Practitioner Family; Visit Provider Surgery ==

== ENCOUNTER 2023-03-24 15:43 | Outpatient (AMB) | payer OTHER, SELFPAY ==
[2023-03-24 15:44] VITALS: BP 98/62; PULSE 102; BMI 26.1
--- NOTE | 2023-03-24 15:44 | MHC.OFFVIS ---
Intake Vital Signs 03/24/23 15:44 Height 5 ft 1 in Weight 138 lb 3.677 oz BMI 26.1 BP 98/62 Blood Pressure Location Rt brachial Position Sitting Pulse 102 H Pulse Source Pulse Oximeter Intake Visit Reasons: F/up thyroid cancer Intake Note: Patient present for Thyroid Cancer follow up visit. Roller Turner Required: No Accompanied by: Self / Same As Patient Allergies No Known Allergies Allergy (Verified 03/24/23 15:45) Medication List - Last Reconciled 03/24/23 by Oscar Rose MD bupropion HCl 150 mg PO QAM dextroamphetamine-amphetamine 25 mg ER 1 cap PO QAM levothyroxine 100 mcg PO DAILY lorazepam 0.5 - 1 mg PO DAILY PRN sertraline 100 mg PO DAILY topiramate 25 mg PO DAILY HPI HPI Comments History of Present Illness Details 42-year-old female today for follow-up visit, for follicular thyroid cancer and postsurgical hypothyroidism by Dr. Baez . She is feeling well but tired. She is currently on levothyroxine 100 mcg daily. She reports a good method of administration she is 100% adherent. She had a right side nodule less than 2 cm she had fine-needle aspiration at [facility] fine-needle aspiration results was suspicious for papillary thyroid cancer, she had right hemithyroidectomy at [facility] on 05/11/[address] Ladd. Histology report from right hemithyroidectomy on 06/02/2018 reviewed She has a 1.2 cm non invasive follicular thyroid neoplasia with papillary like features(NIFTP) in the suspicious nodule. She also had a 2 mm papillary thyroid microcarcinoma, no angio invasion, no lymphatic invasion, no peripheral invasion, no extrathyroidal extension identified. Seven lymph nodes evaluated negative for cancer, stage 1 (pT1a, N0, Mx). She denies cold or heat intolerance, she has been gaining appropriate weight for the . she now has regular periods, she has no diarrhea or constipation, positive chronic insomnia, positive fatigue, denies due dry skin, dysphagia, dyspnea, dysphonia, tremors, palpitations, irritability, anxiety. Family History: Negative family history of thyroid cancer or any other type of thyroid disease. Right Thyroid Lobe: Surgically absent. Left Thyroid Lobe: 3.5 x 1.2 x 1.4 cm, volume 2.9 mL. Previously 4.5 x 1.2 x 2.1 cm, volume 5.9 mL. Parenchyma: The gland echotexture is mildly heterogeneous. Thyroid vascularity is normal. Isthmus: 0.2 cm in maximum AP dimension. Previously 0.2 cm. No focal thyroid nodule is seen. There is a 1.1 x 0.6 x 1 cm lesion iso to slightly hypoechoic to the thyroid gland inferior to the left lobe. This demonstrates some vascularity. This measured 1.3 x 0.7 x 1.2 cm on prior exam and is not appreciably changed. This was found to represent a parathyroid tissue on fine-needle aspiration January 2021. NODES: There is a right level 2/submandibular lymph node. This measures 2.1 x 0.3 x 1.5 cm compared to 1.8 x 0.4 x 1.3 cm is not appear appreciably changed. There is a left level 2/submandibular lymph node. This measures 2.3 x 0.5 x 2.2 cm compared to 2.3 x 0.6 x 2 cm on prior exam does not appear appreciably changed. There is a left level 3 lymph node measures 1 x 0.4 x 0.8 cm. This measured 1.1 x 0.4 x 0.9 cm on prior exam and does not appear appreciably changed.. US/US thyroid IMPRESSION: Post right thyroidectomy. Stable appearing bilateral cervical lymph nodes and nodule inferior to the left lobe that was found to represent parathyroid gland. Laboratory Tests 02/09/19 04/11/19 10/05/19 16:00 15:33 09:22 Free T4 (Dialysis) TSH Free T4 TSH 3rd Generation Thyroglobulin 8.5 H 8.8 H 6.2 H Thyroglobulin Anti body 03/11/20 05/06/20 05/06/20 12:12 11:26 11:26 Free T4 (Dialysis) 1.0 TSH Free T4 TSH 3rd Generation 1.16 Thyroglobulin 3.0 H Thyroglobulin Anti body 07/29/20 07/29/20 08/28/20 13:20 13:20 11:45 Free T4 (Dialysis) TSH 1.30 0.95 Free T4 1.00 1.02 TSH 3rd Generation Thyroglobulin 18.5 H Thyroglobulin Anti body <1 08/28/20 12/27/20 12/27/20 11:45 09:42 09:42 Free T4 (Dialysis) TSH 2.79 Free T4 0.99 TSH 3rd Generation Thyroglobulin 15.1 H Thyroglobulin Anti body <1 12/27/20 09:42 Free T4 (Dialysis) TSH Free T4 TSH 3rd Generation Thyroglobulin 7.2 H Thyroglobulin Anti body <1 PFSH Medical History (Updated 02/24/23 @ 11:45 by Ashwin Beltran MD) ADHD Anxiety Dyslipidemia Facial skin lesion Family history of colon cancer Family history of skin cancer Fatigue Multiple lipomas Parathyroid adenoma Polyarthralgia Post-surgical hypothyroidism Primary thyroid cancer Vitamin D deficiency Surgical History History of tympanostomy tube placement Hx of adenoidectomy Hx of thyroidectomy Hx of tonsillectomy Hx of wisdom tooth extraction Family History Father No problems noted. 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 Left lobe was without the presence of any palpable nodules. There is no cervical adenopathy palpated . Reflexes 2+ DTR Assessment & Plan Assessment & Plan (1) Post-surgical hypothyroidism: Code(s): E89.0 - Postprocedural hypothyroidism (2) Primary thyroid cancer: Comment: With component of papillary micro carcinoma status post right hemithyroidectomy in 2018, currently being followed by endocrine Code(s): C73 - Malignant neoplasm of thyroid gland Plan: This is a [id number] white female with a history of right lobectomy with pathology showing NIFTE and 2 mm focus of papillary cancer. Recent thyroid ultrasound did not show evidence of thyroid nodule but biopsy revealed parathyroid adenoma. Calcium levels have been normal. Patient appears to be clinically and biochemically euthyroid. Thyroglobulin levels after lobectomy have ranged from 5-18 but difficult to interpret in light of the intact lobe. The plan is to continue the current therapy. At this point, patient seems to be cured of the thyroid cancer. Goal would be to keep TSH <2.5 . Can return to the care of her primary care provider return back to endocrinology as needed (3) Parathyroid adenoma: Code(s): D35.1 - Benign neoplasm of parathyroid gland Coding Level of Care Code Est Pt Level 3 (70758) Diagnoses Post-surgical hypothyroidism E89.0 Primary thyroid cancer C73 Parathyroid adenoma D35.1
== END 2023-03-24 16:10 | disposition home or self-care (01) ==
PROVIDERS: PCP Nurse Practitioner Family; Visit Provider Internal Medicine Endocrinology, Diabetes & Metabolism
DX: E89.0 Postprocedural hypothyroidism (principal); C73 Malignant neoplasm of thyroid gland; D35.1 Benign neoplasm of parathyroid gland
CPT/HCPCS: 99213

== ENCOUNTER → 2023-03-24 15:43 | Outpatient (BNVA) | payer OTHER, SELFPAY | PROVIDERS: PCP Nurse Practitioner Family; Visit Provider Internal Medicine Endocrinology, Diabetes & Metabolism ==

== ENCOUNTER 2023-05-25 08:30 | Outpatient (REF) | payer OTHER, SELFPAY ==
--- NOTE | ~2023-05-25 | XR_ITS ---
EXAMINATION: XR HAND, LEFT CLINICAL INFORMATION: Pain in the left hand. COMPARISON: None available. TECHNIQUE: PA, lateral, and oblique views of the left hand. FINDINGS: Question subtle subchondral cysts in the distal ulna. Bones, joints and soft tissues are otherwise unremarkable. XR/XR hand LT min 3V IMPRESSION: Question subtle subchondral cysts raises the question of ulnocarpal arthrosis. Consider followup imaging with CT or MRI to confirm as felt clinically necessary.
== END 2023-05-25 08:31 | disposition home or self-care (01) ==
LOC: HO.HOSX 08:30
PROVIDERS: Visit Provider Orthopaedic Surgery
DX: M79.642 Pain in left hand (principal); R20.0 Anesthesia of skin; R20.2 Paresthesia of skin; S60.222A Contusion of left hand, initial encounter
CPT/HCPCS: 73130

== ENCOUNTER 2023-06-17 15:02 | Outpatient (REF) | payer OTHER, SELFPAY | END 2023-06-17 15:03 | disposition home or self-care (01) | LOC: HO.NEURO 15:02 | PROVIDERS: PCP Nurse Practitioner Family; Visit Provider Orthopaedic Surgery | DX: R20.0 Anesthesia of skin (principal); R20.2 Paresthesia of skin | CPT/HCPCS: 95886; 95911 ==

== ENCOUNTER → 2023-06-17 15:04 | Outpatient (BNV) | payer OTHER, SELFPAY | PROVIDERS: PCP Nurse Practitioner Family; Visit Provider Physical Medicine & Rehabilitation | DX: G56.13 Other lesions of median nerve, bilateral upper limbs (principal); G56.01 Carpal tunnel syndrome, right upper limb | CPT/HCPCS: 95886; 95911 ==

== ENCOUNTER 2023-07-05 13:58 | Outpatient (AMB) | payer OTHER, SELFPAY ==
--- NOTE | 2023-07-05 14:03 | A.OFFVIS_ITS ---
Intake Intake Visit Reasons: Urinary frequency Intake Note: NEW Patient presents today to established treatment for Urinary Frequency: Meds- None Allergies to Antibiotic- No Known Allergies Blood Thinner- None PVR- 49 mL [employer]visor [employer] Required: No Accompanied by: Self / Same As Patient Allergies No Known Allergies Allergy (Verified 05/25/23 09:56) HPI HPI Comments History of Present Illness Details Sharri is a 42-year-old female who presents today to the office to establish as a new patient for an evaluation of urinary frequency. 07/05/23? Patient has a past medical history significant for thyroid cancer. She is status post right eugenio thyroidectomy done on 05/2018. 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 She presents today for an evaluation of urinary frequency. Patient states that she is sexually active. She mentions having urinary frequency every 1-2 hrs and pelvic/bladder pressure. She states that she had urinary tract infections and yeast infections in the past. She denies UTI symptoms at this time. Bladder scan PVR - 49 mL Plan: Renal US was ordered. Follow-up office Cystoscopy Hydrodistension as out-patient. [facility] Medical History Multiple lipomas Fatigue Polyarthralgia Vitamin D deficiency Dyslipidemia Parathyroid adenoma Anxiety ADHD Family history of colon cancer Family history of skin cancer Facial skin lesion Primary thyroid cancer Post-surgical hypothyroidism Surgical History Hx of thyroidectomy History of tympanostomy tube placement Hx of wisdom tooth extraction Hx of adenoidectomy Hx of tonsillectomy Family History Father No problems noted. 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 Gender identity: Female Cognitive needs: No Hearing needs: No Vision needs: No Review of Systems Const All systems reviewed & are unremarkable except as noted in HPI and below Reports no additional complaints Eyes Reports no additional complaints ENT Reports no additional complaints Card Denies dyspnea Resp Denies cough and Denies dyspnea GI Reports no additional complaints Reports no additional complaints Musc Reports no additional complaints Skin/Breast Denies rash and Denies unusual bruising Neuro Reports no additional complaints Psych Reports no additional complaints Endo Reports no additional complaints Cameron/Lymph Reports no additional complaints Aller/Immun Reports no additional complaints Physical Exam Const General: cooperative, healthy appearing and no acute distress Orientation/consciousness: patient oriented x3 HEENT Head: Yes normal to inspection, Yes normocephalic and Yes atraumatic Eyes Conjunctivae: conjunctivae normal Neck Neck: Yes normal visual inspection and Yes trachea midline Chest Chest palpation & inspection: normal inspection of the chest Resp Effort & Inspection: normal respiratory effort Cardio Rate: regular rate GI Inspection: Yes normal to inspection Skin General skin exam: no rashes or lesions noted Neuro General: patient oriented x3 Extrem General: No edema Psych Appearance: grossly normal Office Procedures Post Void Residual Post Residual Void Post Void Residual (PVR): 49 [id number] Void Residual by ultrasound Results AMB Urinalysis, Automated UA Leukoctes 0 Pradeep/uL Last Edit by DEWEY Serrano on 07/05/23 14:35 UA Nitrite Negative Last Edit by DEWEY Serrano on 07/05/23 14:35 UA Urobilinogen 0.2 mg/dL Last Edit by DEWEY Serrano on 07/05/23 14:3 5 UA Protein 0 mg/dL Last Edit by DEWEY Serrano on 07/05/23 14:35 UA pH 7.5 Last Edit by DEWEY Serrano on 07/05/23 14:35 UA Blood 0 John/uL Last Edit by DEWEY Serrano on 07/05/23 14:35 UA Specific [place] 1.010 Last Edit by DEWEY Serrano on 07/05/23 14: 35 UA Ketone Negative Last Edit by KAYLEE SerranoA on 07/05/23 14:35 UA Bilirubin 0 mg/dL Last Edit by DEWEY Serrano on 07/05/23 14:35 UA Glucose 0 mg/dL Last Edit by DEWEY Serrano on 07/05/23 14:35 Results Reviewed Results Reviewed: Laboratory Last Values Urine pH (Auto) 7.5 07/05/23 14:34 Specific [place] (Auto) 1.010 07/05/23 14:34 Urine Protein (Auto) 0 mg/dL 07/05/23 14:34 Glucose (UA)(Auto) 0 mg/dL 07/05/23 14:34 Urine Ketones (Auto) Negative 07/05/23 14:34 Urine Blood (Auto) 0 John/uL 07/05/23 14:34 Urine Nitrite (Auto) Negative 07/05/23 14:34 Urine Bilirubin (Auto) 0 mg/dL 07/05/23 14:34 Urine Urobilinogen (Auto) 0.2 mg/dL 07/05/23 14:34 Leukocyte Esterase (Auto) 0 Pradeep/uL 07/05/23 14:34 Assessment & Plan Assessment & Plan (1) Urinary frequency: Code(s): R35.0 - Frequency of micturition (2) Sensation of pressure in bladder area: Code(s): R39.89 - Other symptoms and signs involving the genitourinary system (3) Recurrent UTI: Code(s): N39.0 - Urinary tract infection, site not specified Plan Renal US was ordered. Follow-up office Cystoscopy Hydrodistension as out-patient. Orders: Orders AMB Post Void Residual by ultrasound 07/05/23 N39.8 - Other specified disorders of urinary system AMB Urinalysis Automated 07/05/23 Z13.9 - Encounter for screening, unspecified Patient Instructions: The patient had an opportunity to ask questions regarding treatment plan. All questions were answered. Imaging, Laboratory studies and physical exam results were discussed and reviewed in detail. No major barriers to understanding were identified. The patient expressed understanding and agreement with the above treatment plan.? ? ? The patient is aware they should contact our office by phone for worsening of their current condition or the appearance of new symptoms. Compliance is encouraged with any medications and followup testing that is ordered.? ? ? It is a privilege to be allowed the opportunity to participate in the urologic care of your patient. If you have any questions or concerns regarding treatment for the above conditions please do not hesitate to contact me. The office telephone contact is [phone].? ? ? This note is constructed in part using voice recognition software. While every effort has been made to ensure accuracy abstractor errors may have been included.? ? ? Yours sincerely,? ? ? Chiquita Lerner MD? ? Coding Level of Care Code New Pt Level 4 (92440) Diagnoses Urinary frequency R35.0 Sensation of pressure in bladder area R39.89 Recurrent UTI N39.0 CPT Codes Post Residual Void - PVR CPT Code: 72289-Nkhl Void Residual by ultrasound ([id number])
== END 2023-07-05 15:00 | disposition home or self-care (01) ==
PROVIDERS: PCP Nurse Practitioner Family; Visit Provider Urology
DX: R35.0 Frequency of micturition (principal); R39.89 Other symptoms and signs involving the genitourinary system; N39.0 Urinary tract infection, site not specified
CPT/HCPCS: 99204

== ENCOUNTER → 2023-07-05 13:58 | Outpatient (BNVA) | payer OTHER, SELFPAY | PROVIDERS: PCP Nurse Practitioner Family; Visit Provider Urology | DX: R35.0 Frequency of micturition (principal); R39.89 Other symptoms and signs involving the genitourinary system; N39.0 Urinary tract infection, site not specified; N39.8 Other specified disorders of urinary system | CPT/HCPCS: 51798; 81003 ==

== ENCOUNTER 2023-07-15 16:05 | Outpatient (REF) | payer OTHER, SELFPAY ==
[2023-07-15 16:28] LABS: MANUAL DIFF FLAG NO
[2023-07-15 17:36] LABS: Basophils Absolute Auto 0.1 X10*3/uL (0.0-0.2); Basophils Percent Auto 0.7 % (0-2); Eosinophils Absolute Auto 0.2 X10*3/uL (0.0-0.4); Eosinophils Percent Auto 2.2 % (0-4); Hematocrit 40.7 % (37.0-47.0); Hemoglobin 13.4 g/dl (12.0-16.0); Imm Gran Abs Auto 0.02 X10*3/uL (0.00-0.03); Imm Gran Pct Auto 0.3 % (0.0-0.4); Lymphocytes Absolute Auto 2.5 X10*3/uL (1.2-4.9); Lymphocytes Percent Auto 34.2 % (20-40); Mean Corpuscular HGB Conc 32.9 g/dl (31.0-35.0); Mean Corpuscular Volume 91.1 fL (80.0-98.0); Mean Platelet Volume 9.8 fL (9.4-12.3); Monocytes Absolute Auto 0.5 X10*3/uL (0.1-1.2); Monocytes Percent Auto 6.5 % (2-11); Neutrophils Absolute Auto 4.1 x10*3/uL (2.0-8.3); Neutrophils Percent Auto 56.1 % (45-73); Platelet Count 324 X10*3/uL (160-400); Red Blood Count 4.47 X10*6/uL (4.20-5.50); Red Cell Distribution Width 11.7 % (11.0-16.0); White Blood Count 7.3 X10*3/uL (4.8-10.8)
[2023-07-15 17:38] LABS: Appearance Urine Cloudy; Color Urine Yellow; Glucose Urine UA Negative (Negative); Leukocyte Esterase Urine Negative (Negative); Nitrite Urine Negative (Negative); Specific Gravity - Urine >= 1.030 (1.005-1.025); Urine Blood Negative (Negative); Urine Ketones Trace mg/dL (Negative); Urine Protein Negative (Neg-Trace)
[2023-07-15 17:52] LABS: Monotest Negative (Negative)
[2023-07-15 18:03] LABS: Alanine Aminotransferase 19 U/L (0-31); Albumin Level 4.6 g/dL (3.5-5.0); Alkaline Phosphatase 54 U/L (39-117); Anion Gap 11 (12-20); Aspartate Amino Transferase 20 U/L (5-31); Bilirubin Total 0.4 mg/dL (0.0-1.0); Blood Urea Nitrogen 19 mg/dL (9-16); Calcium 9.6 mg/dL (8.4-10.2); Carbon Dioxide 29 mmol/L (22-29); Chloride 103 mmol/L (96-108); Estimated Glomerular Filt Rate > 60; Glucose Random 102 mg/dL (60-115); Iron 112 mcg/dL (30-160); Magnesium 2.4 mg/dL (1.6-2.6); Percent Iron Saturation 34 % (15-50); Potassium 3.8 mmol/L (3.3-5.1); Sodium 139 mmol/L (135-145); Total Iron Binding Capacity 330 mcg/dL (228-428); Total Protein 7.9 g/dL (6.5-8.0); Unsaturated Iron Binding 218 ug/dL
[2023-07-15 18:18] LABS: Ferritin 33 ng/mL (10-250); TSH reflex Free T4 3.59 uIU/mL (0.32-4.0)
[2023-07-15 18:22] LABS: Vitamin B12 887 pg/mL (200-900)
[2023-07-19 20:04] LABS: Cytomegalovirus Ab IgG <0.60 U/mL; Cytomegalovirus Ab IgM <30.00 AU/mL
== END 2023-07-15 16:06 | disposition home or self-care (01) ==
LOC: HO.LAB 16:05
PROVIDERS: PCP Nurse Practitioner Family; Visit Provider Nurse Practitioner Family
DX: R53.83 Other fatigue (principal); R42 Dizziness and giddiness
CPT/HCPCS: 36415; 80053; 81003; 82550; 82607; 82728; 83540; 83735; 84443; 85025; 86308; 86644; 86645

== ENCOUNTER 2023-07-25 18:57 | Emergency (ER) | payer OTHER, SELFPAY ==
--- NOTE | ~2023-07-25 | CT_ITS ---
EXAMINATION: CERVICAL SPINE CT WITHOUT CONTRAST CLINICAL INFORMATION: Pain. Injury. COMPARISON: None. TECHNIQUE: Multidetector volumetric imaging was obtained through the cervical spine without intravenous contrast. Multiplanar reconstructed images in coronal and sagittal orientations were submitted. This CT examination was performed using dose optimization techniques as appropriate, variously including the following: *Automated exposure control *Adjustment of mA and/or kV according to patient size (this includes techniques or standardized protocols for targeted exams where dose is matched to indication/reason for exam; i.e. extremities or head) *Use of iterative reconstruction technique DOSE: 293 mGy-cm FINDINGS: Vertebral body heights are normal. No fractures of the vertebral bodies or posterior elements. Reversal of the normal cervical lordosis is likely positional or degenerative. No vertebral body or posterior element subluxation. Degenerative osteophytes and sclerosis are present at the atlantodental articulation, though normal alignment is maintained. Craniocervical junction is normal. Mild to moderate degenerative disc disease is evident at C6-C7 with loss of intervertebral disc height and endplate uncovertebral osteophytes. More minimal degenerative disc disease at other levels. Facet joints appear relatively well-preserved. Central canal and neural foramina appear patent without appreciable stenoses. Status post right thyroidectomy. The left lobe of the thyroid is small and heterogeneous. Cervical soft tissues are otherwise unremarkable. Imaged portions of the lung apices are clear. CT/CT cervical spine wo IV con IMPRESSION: 1. No acute fracture or malalignment in the cervical spine. 2. Mild to moderate degenerative disc disease at C6-C7.
--- NOTE | 2023-07-25 19:31 | ED_ITS ---
HPI - General Adult General Chief complaint: Neck Pain/Injury Stated complaint: neck/ skull pain w/ instability. xray? Time Seen by Provider: 07/25/23 21:05 Source: patient Mode of arrival: ambulatory Limitations: no limitations History of Present Illness HPI narrative: A 42-year-old female came in for evaluation of neck pain that started few days ago pain is originating on both sides of the neck radiating to the forehead area causing a tension headache that patient is prone to. Patient had a remote history of falling of the chair at work a few months ago but the pain started months after, otherwise no recent injury or falls or car accidents. Patient declined any fever or chills , no photophobia. Patient scheduled to have MRI of the neck on Wednesday. Related Data Home Medications Medication Instructions Recorded Confirmed dextroamphetamine-amphetamine ER 1 cap PO QAM 01/08/22 02/24/23 25 mg 24hr capsule,extend release lorazepam 1 mg tablet 0.5 - 1 mg PO DAILY PRN anxiety 08/19/22 02/24/23 levomilnacipran 20 mg capsule,24 20 mg PO DAILY 07/05/23 hr,extended release (Fetzima) Previous Rx's Medication Instructions Recorded levothyroxine 100 mcg tablet 100 mcg PO DAILY #90 tabs 02/17/23 diazepam 2 mg tablet (Valium) 2 mg PO BID PRN muscle spasm #7 07/25/23 tabs Allergies Allergy/AdvReac Type Severity Reaction Status Date / Time No Known Allergies Allergy Verified 05/25/23 09:56 Review of Systems 2 Review of Systems: all other systems are reviewed and are negative Constitutional: Reports as per HPI and Reports no additional constitutional complaints Eyes: Reports as per HPI and Reports no additional eye complaints Reports system reviewed and no additional complaints, except as documented Cardiovascular: Reports as per HPI and Reports no additional cardiovascular complaints Respiratory: Reports as per HPI and Reports no additional respiratory complaints Gastrointestinal: Reports as per HPI and Reports no additional gastrointestinal complaints Genitourinary: Reports no additional female genitourinary complaints Musculoskeletal: Reports no additional musculoskeletal complaints Skin/Breast: Reports system reviewed and no additional complaints, except as docu Psychiatric: Reports no additional psychiatric complaints Endocrine: Reports no additional endocrine complaints Hematologic/Lymphatic: Reports no additional hematologic/lymphatic complaints Allergic/Immunologic: Reports no additional allergic/immunologic complaints Reports system reviewed and no additional complaints, except as documented and Reports Abnormal speech present [facility] Past Medical History Medical History Recurrent UTI Sensation of pressure in bladder area Urinary frequency Fingertip contusion Numbness and tingling in both hands Facial rash Upper respiratory infection Flu-like symptoms Multiple lipomas Fatigue Polyarthralgia Vitamin D deficiency Dyslipidemia Parathyroid adenoma Anxiety ADHD Family history of colon cancer Family history of skin cancer Facial skin lesion Primary thyroid cancer Post-surgical hypothyroidism Surgical History Hx of thyroidectomy History of tympanostomy tube placement Hx of wisdom tooth extraction Hx of adenoidectomy Hx of tonsillectomy Family History Family History Father No problems noted. 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 Blood pressure elevated. Heart rate elevated. Respiratory rate normal. Temperature normal. Oxygen saturation normal. Appearance: Alert. Oriented X3. No acute distress. Head: Normal external exam. Normocephalic. Atraumatic. No Rodgers signs noted. No raccoon eyes noted Eyes: PERRLA. EOMI. Conjunctiva and sclera normal. Eyelids normal. ENT: TM's Normal. Pharynx normal. Uvula midline. Moist mucous membranes. No trismus noted. No drooling noted. No muffled voice noted. Neck: Normal inspection. Neck supple. no meningeal signs, bilateral paravertebral muscle spasm with tenderness. CVS: Normal heart rate and rhythm. Heart sound normal. No murmurs noted. Pulses normal throughout. Respiratory: No respiratory distress. Painless inspiration. Breath sounds normal. No wheezes/rales/rhonchi noted. Chest nontender. No accessory muscle usage noted or decreased air movement noted. Abdomen: Soft and nontender. Bowel sounds normal in all 4 quadrants. No distention noted. No organomegaly noted. No visible injury noted. Back: No CVA tenderness. Full range of motion noted. Skin: Skin warm and dry. Normal skin color. Normal skin turgor. No rashes/lesions/lacerations noted. Extremities: No lower extremity edema. Extremities exhibit normal range of motion. Extremities nontender. Neuro: Oriented X 3. Cranial nerve exam: II-XII are grossly intact No motor deficit. No sensory deficit. Reflexes normal. Course Course Course Narrative: RME performed by Susan Quintero PA-C. Patient is a 42 year old assigned female at presenting to the emergency department with neck pain and the sensation of feeling like she needs to hold her head up. Labs and imaging ordered. Patient placed back in the waiting room pending room availability and results. Reevaluation(s) Reevaluation #1: muscular spasm pain to both sides of the neck. patient is also scheduled to have an MRI this week. Will start the patient on Valium at bedtime and follow- up with PCP. Time: 21:24 Medical Decision Making Differential Diagnosis Differential Diagnoses: The differential diagnosis associated with the presentation includes ( Neck sprain, muscular sprain, cervical radiculopathy, tension headache,) Admission/Observation Consideration of admission/observation: Escalation of care including admission/observation considered Lab Data MDM Lab Attestation statement: I reviewed the patient's lab results. 07/25/23 20:21 07/25/23 20:21 Labs: Lab Results 07/25/23 Range/Units 20:21 WBC 6.9 (4.8-10.8) X10*3/uL RBC 4.12 L (4.20-5.50) X10*6/uL Hgb 12.4 (12.0-16.0) g/dl Hct 36.1 L (37.0-47.0) % MCV 87.6 (80.0-98.0) fL MCH 30.1 (27.0-33.0) pg MCHC 34.3 (31.0-35.0) g/dl RDW 11.7 (11.0-16.0) % Plt Count 248 (160-400) X10*3/uL MPV 9.5 (9.4-12.3) fL Immature Gran % (Auto) 0.3 (0.0-0.4) % Neut % (Auto) 44.6 L (45-73) % Lymph % (Auto) 44.3 H (20-40) % Drew % (Auto) 7.0 (2-11) % Eos % (Auto) 3.1 (0-4) % Baso % (Auto) 0.7 (0-2) % Lymph # (Auto) 3.0 (1.2-4.9) X10*3/uL Drew # (Auto) 0.5 (0.1-1.2) X10*3/uL Eos # (Auto) 0.2 (0.0-0.4) X10*3/uL Baso # (Auto) 0.1 (0.0-0.2) X10*3/uL Abs Immat Gran (auto) 0.02 (0.00-0.03) X10*3/uL Absolute Neuts (auto) 3.1 (2.0-8.3) x10*3/uL Absolute Nucleated RBC 0.000 (0.0-0.012) X10*3/uL Nucleated RBC % (auto) 0.0 (0.0-0.2) /100WBC Sodium 140 (135-145) mmol/L Potassium 3.8 (3.3-5.1) mmol/L Chloride 105 (96-108) mmol/L Carbon Dioxide 28 (22-29) mmol/L Anion Gap 11 L (12-20) BUN 16 (9-16) mg/dL Creatinine 0.77 (0.5-1.4) mg/dL Estim Creat Clear Calc 80.8 Estimated GFR > 60 Random Glucose 77 (60-115) mg/dL Calcium 9.0 D (8.4-10.2) mg/dL Magnesium 2.1 (1.6-2.6) mg/dL Total Bilirubin 0.3 (0.0-1.0) mg/dL AST 27 (5-31) U/L ALT 32 H (0-31) U/L Alkaline Phosphatase 53 (39-117) U/L Total Protein 7.6 (6.5-8.0) g/dL Albumin 4.4 (3.5-5.0) g/dL Influenza Type A (PCR) NEGATIVE (Negative) Influenza Type B (PCR) NEGATIVE (Negative) RSV RNA Qual (PCR) NEGATIVE (Negative) SARS-CoV-2 RNA (RT-PCR) NEGATIVE (Negative) Independent Interpretation I performed an independent interpretation of an: CT Scan ( cervical spine: no acute cervical spine injury) Radiology Impression Discussion of test interpretation with radiology: I have reviewed the radiologist's reading. (1. No acute fracture or malalignment in the cervical spine. 2. Mild to moderate degenerative disc disease at C6-C7. ) Discharge Plan Discharge Clinical Impression: Strain of neck muscle Patient Disposition: Home, Self-Care Instructions: Cervical Sprain (ED) Prescriptions: New diazepam [Valium] 2 mg tablet 2 mg PO BID PRN (Reason: muscle spasm) Qty: 7 0RF No Action levothyroxine 100 mcg tablet 100 mcg PO DAILY Qty: 90 0RF dextroamphetamine-amphetamine 25 mg capsule,extended release 24hr 1 cap PO QAM lorazepam 1 mg tablet 0.5 - 1 mg PO DAILY PRN (Reason: anxiety) Fetzima 20 mg capsule,extended release 24 hr 20 mg PO DAILY Referrals: Sarah Montejo UTILITY WORKER [Primary Care Provider] -
[2023-07-25 19:32] VITALS: BP 160/102; PULSE 111; RESP 18; TEMP 36.9; O2SAT 100; BMI 27.3
[2023-07-25 20:26] LABS: MANUAL DIFF FLAG NO
[2023-07-25 20:29] LABS: Basophils Absolute Auto 0.1 X10*3/uL (0.0-0.2); Basophils Percent Auto 0.7 % (0-2); Eosinophils Absolute Auto 0.2 X10*3/uL (0.0-0.4); Eosinophils Percent Auto 3.1 % (0-4); Hematocrit 36.1 % (37.0-47.0); Hemoglobin 12.4 g/dl (12.0-16.0); Imm Gran Abs Auto 0.02 X10*3/uL (0.00-0.03); Imm Gran Pct Auto 0.3 % (0.0-0.4); Lymphocytes Percent Auto 44.3 % (20-40); Mean Corpuscular HGB Conc 34.3 g/dl (31.0-35.0); Mean Corpuscular Hemoglobin 30.1 pg (27.0-33.0); Mean Corpuscular Volume 87.6 fL (80.0-98.0); Mean Platelet Volume 9.5 fL (9.4-12.3); Monocytes Absolute Auto 0.5 X10*3/uL (0.1-1.2); Neutrophils Absolute Auto 3.1 x10*3/uL (2.0-8.3); Neutrophils Percent Auto 44.6 % (45-73); Platelet Count 248 X10*3/uL (160-400); Red Blood Count 4.12 X10*6/uL (4.20-5.50); Red Cell Distribution Width 11.7 % (11.0-16.0); White Blood Count 6.9 X10*3/uL (4.8-10.8)
[2023-07-25 20:41] LABS: Alanine Aminotransferase 32 U/L (0-31); Albumin Level 4.4 g/dL (3.5-5.0); Alkaline Phosphatase 53 U/L (39-117); Anion Gap 11 (12-20); Aspartate Amino Transferase 27 U/L (5-31); Bilirubin Total 0.3 mg/dL (0.0-1.0); Blood Urea Nitrogen 16 mg/dL (9-16); Carbon Dioxide 28 mmol/L (22-29); Chloride 105 mmol/L (96-108); Creatinine Clr Calc Pharmacy 80.8; Estimated Glomerular Filt Rate > 60; Glucose Random 77 mg/dL (60-115); Magnesium 2.1 mg/dL (1.6-2.6); Potassium 3.8 mmol/L (3.3-5.1); Sodium 140 mmol/L (135-145); Total Protein 7.6 g/dL (6.5-8.0)
[2023-07-25 21:04] LABS: Influenza A PCR NEGATIVE (Negative); Influenza B PCR NEGATIVE (Negative); Resp Syncy Virus RNA Qual PCR NEGATIVE (Negative); SARS COV2 PCR INHOUSE NEGATIVE (Negative)
[2023-07-25 21:31] VITALS: BP 115/74; PULSE 98; RESP 19; TEMP 36.9; O2SAT 100
== END 2023-07-25 21:49 | disposition home or self-care (01) ==
PROVIDERS: Physician Assistant Medical; Emergency Provider Emergency Medicine; PCP Nurse Practitioner Family
DX: S16.1XXA Strain of muscle, fascia and tendon at neck level, initial encounter (principal); X58.XXXA Exposure to other specified factors, initial encounter; Y93.9 Activity, unspecified; Y92.9 Unspecified place or not applicable; Y99.9 Unspecified external cause status; Z20.822 Contact with and (suspected) exposure to COVID-19; Z20.828 Contact with and (suspected) exposure to other viral communicable diseases
CPT/HCPCS: 0241U; 36415; 72125; 80053; 83735; 85025; 99284

== ENCOUNTER 2023-07-26 13:01 | Outpatient (AMB) | payer OTHER, SELFPAY ==
[2023-07-26 13:08] VITALS: BMI 27.3
--- NOTE | 2023-07-26 13:08 | A.OFFVIS_ITS ---
Intake Vital Signs 07/26/23 13:08 Height 5 ft Weight 140 lb BMI 27.3 Intake Visit Reasons: O/V B/L hand CTR discuss surgery Intake Note: Sharri 42 yr old female presents today to discuss right hand CTR. 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 Also states she has stiffness in her pinky and at times her pinky snaps. EMG done. Patient would like to discuss surgical intervention. Allergies No Known Allergies Allergy (Verified 07/26/23 13:20) HPI O/V B/L hand CTR discuss surgery HPI Details Sharri is a 42-year-old smhyp-qjcr-ykjukioe woman who works here at [employer]. She complains of numbness and tingling in her right hand that is intermittent but daily. It does wake her up at night, and it does occur rather quickly with repetitive activities such as using the mouse at work. She recently had an EMG nerve conduction study and is following up after that study. She does feel that this is work related as she does a lot of typing and a lot of writing while at work, and notices that her symptoms are exacerbated with these activities. She also reports that she sometimes feels like her right small finger gets stuck in extension. She reports that she tends to keep extended when she is using a mouse or even other activities in that sometimes she feels like it will then feel like it catching when she tries to bring her finger into flexion. She does not have trouble with the finger remaining flexed when coming out of a fist into extension. Numbness and tingling in her left hand is more occasional [facility] Medical History Recurrent UTI Sensation of pressure in bladder area Urinary frequency Fingertip contusion Numbness and tingling in both hands Facial rash Upper respiratory infection Flu-like symptoms Multiple lipomas Fatigue Polyarthralgia Vitamin D deficiency Dyslipidemia Parathyroid adenoma Anxiety ADHD Family history of colon cancer Family history of skin cancer Facial skin lesion Primary thyroid cancer Post-surgical hypothyroidism Surgical History Hx of thyroidectomy History of tympanostomy tube placement Hx of wisdom tooth extraction Hx of adenoidectomy Hx of tonsillectomy Family History Father No problems noted. 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 Median ulnar radial nerve motor and sensory were all grossly intact today. No intrinsic or thenar wasting. Good finger cross and good APB muscle belly firing. She can make a tight fist and extend her fingers with no locking or catching. No tenderness over the right small finger A1 heather. No subluxation of the extensor mechanism over the 5th MCP joint with finger flexion. I did not witness any catching or locking with her hand motion today in clinic. Again she demonstrates that her catching sensation occurs when going from a persistently extended position for the small finger, to then trying to bring the finger into flexion. Cap refill brisk to all digits. The fingers of both hands were cool and somewhat sweaty, but again with excellent cap refill. EMG nerve conduction study performed on 06/17/2023: FINDINGS: Right median motor nerve showed prolonged distal latency, normal amplitude and normal conduction velocity. Right median sensory nerve showed prolonged peak latency. All other nerves tested were within normal. Concentric needle EMG was performed in selected muscles of the bilateral upper extremities. Study did not reveal signs of electric abnormalities as shown in the table below. IMPRESSION: 1. This is an abnormal study. 2. There is electrodiagnostic evidence for right moderate-severe median neuropathy at the wrist, consistent with carpal tunnel syndrome. 3. There is no electrodiagnostic evidence for median neuropathy on the left. 4. There is no electrodiagnostic evidence for ulnar neuropathy, brachial plexopathy, or cervical radiculopathy. Thank you for your kind referral. Melvi Jolley MD, CINTIA Board Certified, [place] [employer] and [employer] (ABPMR) Board Certified, [place] Board [employer] Electrodiagnostic [employer] (ABEM). Assessment & Plan Assessment & Plan (1) Carpal tunnel syndrome of right wrist: Code(s): G56.01 - Carpal tunnel syndrome, right upper limb Plan Assessment and plan: 1. Right carpal tunnel syndrome, moderate to severe Symptoms intermittent but daily I educated her about this condition\ Discussed operative and non operative treatment options. I am recommending surgery and she wishes to proceed with surgery. The risks and benefits of operative treatment were discussed with the patient and the patient wishes to proceed with surgery. These risks include, but are not limited to risk of damage to blood vessels, nerves, tendons, infection, recurrence, incomplete relief of preoperative symptoms, persistent pain, possible need for further surgery and the risks associated with regional blocks and anesthesia. The plan is to take the patient to the operating room sometime the next few weeks for the following procedures: 1. Right carpal tunnel release under local 2. [ ] All of the preoperative paperwork including the consent was filled out today. All the patient's questions were answered. The patient understands that they will be contacted by our marketing manager soon to schedule this procedure She denies having diabetes or being on blood thinners. She does occasionally take lorazepam for anxiety. She may take 1 before surgery for anxiety if she wishes. 2. Left middle finger contusion and subungual hematoma After getting her fingertip caught in a door on 05/23/2023 This appears to be doing well. She has evidence of good nail growth extending perhaps 5 mm past the eponychial fold today.. Coding Level of Care Code Est Pt Level 4 (49833) Diagnoses Carpal tunnel syndrome of right wrist G56.01
== END 2023-07-26 13:44 | disposition home or self-care (01) ==
LOC: HO.HOS 13:01
PROVIDERS: PCP Nurse Practitioner Family; Visit Provider Orthopaedic Surgery
DX: G56.01 Carpal tunnel syndrome, right upper limb (principal)
CPT/HCPCS: 99214

== ENCOUNTER → 2023-07-26 13:01 | Outpatient (BNVA) | payer OTHER, SELFPAY | PROVIDERS: PCP Nurse Practitioner Family; Visit Provider Orthopaedic Surgery ==

== ENCOUNTER 2023-07-28 14:30 | Outpatient (REF) | payer OTHER, SELFPAY ==
--- NOTE | ~2023-07-28 | MR_ITS ---
EXAMINATION: MR BRAIN WITHOUT AND WITH CONTRAST CLINICAL INFORMATION: Dizziness with unsteady gait. COMPARISON: None. TECHNIQUE: Multiplanar, multisequential imaging was obtained without and with intravenous contrast. Intravenous contrast: Gadavist 6 mL. FINDINGS: No diffusion abnormality is seen. No brain parenchymal signal abnormality is seen. The ventricles are normal in size. No mass effect or midline shift is evident. No extra-axial fluid collections are noted. The brainstem and cerebellum are normal. There is no abnormal parenchymal or leptomeningeal enhancement. The VII and VIII cranial nerve complexes are normal in course and caliber. There is a very thin interface along the apices of both superior semicircular canals. Fluid signal is preserved within the cochlea, semicircular canals, and vestibule on the high-resolution axial FIESTA sequence. No cerebellopontine angle lesion is noted. There is no abnormal labyrinthine or intracanalicular enhancement on postcontrast imaging. The craniovertebral junction, marrow signal, and midline structures are normal. The gradient refocused acquisition is normal. The visualized portions of the major intracranial flow voids at the level of the morongo of Hector are preserved. The dural venous sinus flow voids are maintained. The mastoid air cells and paranasal sinuses are well aerated. MR/MR head/brain wo/w con IMPRESSION: Very thin interface along the apices of both superior semicircular canals, for which the possibility of an underlying osseous dehiscence is difficult to rule out on the basis of this examination. Correlate for any symptoms of a third window phenomenon. Otherwise, no retrocochlear pathology.
[2023-07-28] MEDS: gadobutroL 7.5 ML VIAL IVPUSH (15:28)
== END 2023-07-28 14:31 | disposition home or self-care (01) ==
LOC: HO.MRI 14:30
PROVIDERS: PCP Nurse Practitioner Family; Visit Provider Nurse Practitioner Family
DX: R42 Dizziness and giddiness (principal)
CPT/HCPCS: 70553; A9585

== ENCOUNTER 2023-08-03 06:14 | Day surgery (SDC) | payer OTHER, SELFPAY ==
--- NOTE | 2023-08-02 09:42 | P.CONAN_ITS ---
HPI - Anesthesia Eval Consult details Narrative: 42yo F for Cystoscopy Hydrodistention of Bladder PMFSH Active Problems Active Problems: All Active Problems (Updated 07/26/23 @ 13:48 by Radha Miranda MD) Carpal tunnel syndrome of right wrist (Acute) Multiple lipomas (Acute) Fatigue (Acute) Polyarthralgia (Acute) Left lateral epicondylitis (Acute) Right lateral epicondylitis (Acute) Vitamin D deficiency (Acute) Dyslipidemia (Acute) Parathyroid adenoma (Acute) Anxiety (Acute) ADHD (Acute) Family history of colon cancer (Acute) Family history of skin cancer (Acute) Facial skin lesion (Acute) Primary thyroid cancer (Acute) Post-surgical hypothyroidism (Acute) Past Medical History Medical History Recurrent UTI Sensation of pressure in bladder area Urinary frequency Fingertip contusion Numbness and tingling in both hands Facial rash Upper respiratory infection Flu-like symptoms Multiple lipomas Fatigue Polyarthralgia Vitamin D deficiency Dyslipidemia Parathyroid adenoma Anxiety ADHD Family history of colon cancer Family history of skin cancer Facial skin lesion Primary thyroid cancer Post-surgical hypothyroidism Family History Family History Father No problems noted. 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 Sexual orientation: Straight/Heterosexual Gender identity: Female Cognitive needs: No Hearing needs: No Vision needs: No Meds Allergies Allergy/AdvReac Type Severity Reaction Status Date / Time No Known Allergies Allergy Verified 07/26/23 13:20 Home Medications Medication Instructions Recorded Confirmed Last Taken Type dextroamphetamine-amphetamine ER 1 cap PO QAM 01/08/22 02/24/23 Unknown History 25 mg 24hr capsule,extend release lorazepam 1 mg tablet 0.5 - 1 mg PO DAILY PRN anxiety 08/19/22 02/24/23 Unknown History levomilnacipran 20 mg capsule,24 20 mg PO DAILY 07/05/23 Unknown History hr,extended release (Fetzima) Exam Pertinent Lab Results Pertinent Lab Results: Laboratory Tests 07/25/23 20:21 WBC 6.9 Hgb 12.4 Hct 36.1 L Plt Count 248 Sodium 140 Potassium 3.8 Chloride 105 Carbon Dioxide 28 BUN 16 Creatinine 0.77 Assessment and Plan Assessment Anesthesia Assessment: Chart Reviewed
[2023-08-03] VITALS (7 sets, daily range): BP systolic 103–116; BP diastolic 64–80; PULSE 84–118; RESP 14–17; TEMP 36.2–37; O2SAT 100; BMI 26.3
[2023-08-03 06:34] LABS: UPreg QC Valid YES; Urine Pregnancy NEGATIVE (NEGATIVE)
[2023-08-03] MEDS: Lactated Ringers 1,000 ML 100 ML IVCONT (06:46)
--- NOTE | 2023-08-03 07:27 | MHC.SHP ---
Pre-Procedural Eval Section A Date of Service: 08/03/23 The patient is an INPATIENT: No The History & Physical has been completed within 30 days and I have reviewed it.: Yes Section B Chief Complaint: Frequency of micturition Allergies: Allergies Allergy/AdvReac Type Severity Reaction Status Date / Time No Known Allergies Allergy Verified 08/03/23 06:26 Plan Diagnosis/Plan: Unchanged I have reviewed the history and physical and performed a pertinent physical examination on my patient. No changes have occurred unless specified. Cystoscopy. Hydrodistension. Discussed risks to include but not limited to, blood in the urine, burning with urination, urgency. Time Spent With Patient Time: Total time managing care of this patient today ____ minutes.
--- NOTE | 2023-08-03 07:44 | HO.ANESPROP2 ---
[facility] Active Problems All Active Problems Carpal tunnel syndrome of right wrist (Acute) Multiple lipomas (Acute) Fatigue (Acute) Polyarthralgia (Acute) Left lateral epicondylitis (Acute) Right lateral epicondylitis (Acute) Vitamin D deficiency (Acute) Dyslipidemia (Acute) Parathyroid adenoma (Acute) Anxiety (Acute) ADHD (Acute) Family history of colon cancer (Acute) Family history of skin cancer (Acute) Facial skin lesion (Acute) Primary thyroid cancer (Acute) Post-surgical hypothyroidism (Acute) Past Medical History Medical History Recurrent UTI Sensation of pressure in bladder area Urinary frequency Fingertip contusion Numbness and tingling in both hands Facial rash Upper respiratory infection Flu-like symptoms Multiple lipomas Fatigue Polyarthralgia Vitamin D deficiency Dyslipidemia Parathyroid adenoma Anxiety ADHD Family history of colon cancer Family history of skin cancer Facial skin lesion Primary thyroid cancer Post-surgical hypothyroidism Family History Family History Father No problems noted. Mother Heart murmur Diabetes mellitus Stroke Paternal Grandmother Colon cancer Ovarian cancer Paternal Aunt Breast cancer Family history of problems with anesthesia: No Surgical History Surgical History Hx of thyroidectomy History of tympanostomy tube placement Hx of wisdom tooth extraction Hx of adenoidectomy Hx of tonsillectomy History of Problems with Anesthesia: Yes (n v) Social History Social History Household Members: Spouse and Children Housing: House Patient Tobacco Use Status: Never used Tobacco e-Cigarette/Vaping Use: Never Used Second Hand Smoke Exposure: No Use of substances other than those prescribed or required for medical reasons: No Are you DNR?: No Advance Directives: No Advance Directives Information Provided: Yes service: No Current occupational status: employed 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 Sexual orientation: Straight/Heterosexual Gender identity: Female Cognitive needs: No Hearing needs: No Vision needs: No Meds Allergies Allergy/AdvReac Type Severity Reaction Status Date / Time No Known Allergies Allergy Verified 08/03/23 06:26 Active Medications: Current Medications Lactated Ringer's (Lr) 1,000 mls @ 100 mls/hr IVCONT .Q10H OMAR Last Admin: 08/03/23 06:46 Dose: 100 mls/hr Home Medications Medication Instructions Recorded Confirmed Last Taken Type dextroamphetamine-amphetamine ER 1 cap PO QAM 01/08/22 02/24/23 Unknown History 25 mg 24hr capsule,extend release lorazepam 1 mg tablet 0.5 - 1 mg PO DAILY PRN anxiety 08/19/22 02/24/23 Unknown History levomilnacipran 20 mg capsule,24 20 mg PO DAILY 07/05/23 Unknown History hr,extended release (Fetzima) Exam Height,Weight and Vital Signs: Height 5 ft 1 in Weight 63.231 kg Last Vital Signs Temp 97.1 F 08/03/23 06:44 Pulse 96 08/03/23 06:44 Resp 16 08/03/23 06:44 BP 109/74 08/03/23 06:44 Pulse Ox 100 08/03/23 06:44 O2 Del Method Room Air 08/03/23 06:44 Pertinent Lab Results Pertinent Lab Results: Laboratory Tests 08/03/23 06:25 Urine Test NEGATIVE Airway Mallampati Class: I TM Dist: >3cm Neck ROM: Full Loose/Missing/Broken Teeth: No Heart: rrr Lungs: clear Assessment and Plan Final Anesthetic Review Family History of Problems with Anesthesia: No History of Problems with Anesthesia: Yes (n v) NPO: Yes ASA Class: II Final Preanesthetic Review: No Changes in Pt Med Stat, Meds/Allgs Chart Reviewed, Consent Obtained/Reviewed and Anes Risks/Benef Reviewed Patient Risk: Intermediate Procedure Risk: Low Anesthetic Plan Anesthetic Plan: GA Disposition: Standard PACU
--- NOTE | 2023-08-03 08:26 | W.PM.OPN ---
Operative Note Operative Note Date of Service: 08/03/23 Narrative: PREOP DIAGNOSIS: Urinary frequency bladder pressure POSTOP DIAGNOSIS: Interstitial cystitis PROCEDURE: CYSTOSCOPY HYDRODISTENTION Anethesia: General Surgeon: Dr. Chiquita Lerner Details of procedure: The patient was brought into the operating room placed on the OR table in supine position. 2 g of Ancef IV. General anesthesia was administered. The patient was repositioned into lithotomy position, prepped and draped in the usual sterile fashion. Time-out was done per protocol. 2% lidocaine urojet was passed transurethrally. A 22 fr cystoscope was placed transurethrally into the bladder. Urine was drained from the bladder measuring 95 mL.The right and left ureteral orifices were visualized. The entire bladder was visualized. There were no suspicious bladder lesions seen. The bladder was filled with sterile water at 80 cm of water pressure under gravity. The bladder was distended for 2 minutes. Bladder capacity measured 750 mL. Revisualization of the bladder, noted moderate glomerulations on several quadrants of the bladder. No Mitul ulcerations. The bladder was refilled with sterile water again at 80 cm of water pressure under gravity. The bladder was distended for 2 minutes. The fluid was drained from the bladder and measured 775 mL. The cystoscope was removed. 2% lidocaine urojet was passed transurethrally, Solution of (1% lidocaine plain, 15 mL, 0.5 % Marcaine 15 mL mixed with 30, 000 units of heparin concentration 5000 units per mL total of 6 mL hepaine) instilled transurethrally into the bladder. The patient was brought out of anesthesia and taken to recovery in stable condition. Complications: None Drains: none
[2023-08-03] MEDS: Phenazopyridine HCL 200 MG TABLET PO (08:44)
== END 2023-08-03 10:08 | disposition home or self-care (01) ==
PROVIDERS: Nurse Practitioner; PCP Nurse Practitioner Family; Visit Provider Urology
PROC: 0T7B7ZZ Dilation of Bladder, Via Natural or Artificial Opening (ICD-10-PCS; CPT 52260; principal; 2023-08-03 07:30)
DX: N30.10 Interstitial cystitis (chronic) without hematuria (principal); R35.0 Frequency of micturition; D17.9 Benign lipomatous neoplasm, unspecified; E55.9 Vitamin D deficiency, unspecified; E78.5 Hyperlipidemia, unspecified; Z85.850 Personal history of malignant neoplasm of thyroid; Z87.440 Personal history of urinary (tract) infections
CPT/HCPCS: 52260; 81025; J0690; J1100; J1644; J2250; J2405; J2704; J2795; J3010

== ENCOUNTER → 2023-08-03 06:14 | Outpatient (BNV) | payer OTHER, SELFPAY | PROVIDERS: PCP Nurse Practitioner Family; Visit Provider Urology | DX: N30.10 Interstitial cystitis (chronic) without hematuria (principal) | CPT/HCPCS: 52260 ==

== ENCOUNTER 2023-08-06 12:34 | Outpatient (REF) | payer OTHER, SELFPAY ==
--- NOTE | ~2023-08-06 | US_ITS ---
EXAMINATION: US RETROPERITONEAL LIMITED (RENAL ONLY) CLINICAL INFORMATION: Frequency of micturition. COMPARISON: None available. TECHNIQUE: Real-time imaging of the kidneys. Limited visualization due to bowel gas. FINDINGS: RIGHT KIDNEY: 11.3 x 4.0 x 4.7 cm (SAG x AP x TRV). No hydronephrosis. No renal calculi. Renal cortical thickness is normal. Limited visualization. LEFT KIDNEY: 10.4 x 5.3 x 5.1 cm (SAG x AP x TRV). No hydronephrosis. No renal calculi. Renal cortical thickness is normal. Limited visualization. US/US renal BI IMPRESSION: No hydronephrosis. No renal calculi.
== END 2023-08-06 12:35 | disposition home or self-care (01) ==
LOC: HO.US 12:34
PROVIDERS: PCP Nurse Practitioner Family; Visit Provider Urology
DX: R35.0 Frequency of micturition (principal); R39.89 Other symptoms and signs involving the genitourinary system
CPT/HCPCS: 76775

== ENCOUNTER 2023-08-18 13:52 | Outpatient (AMB) | payer OTHER, SELFPAY ==
--- NOTE | 2023-08-18 14:06 | A.OFFVIS_ITS ---
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 08/18/2023- She is followed today for post op cysto hydrodistention. She is status post hydrodistention done on 08/03/2023. Findings: Revisualization of the bladder, post distention noted moderate glomerulations on several quadrants of the bladder. No Mitul ulcerations. Bladder capacity measured 775 mL. I discussed with the patient that Interstitial cystitis is a chronic condition in which the lining of the bladder is inflamed and symptoms may include bladder pressure, burning with urination, urgency or pelvic pain. The exact cause for IC is not known, but likely factors that contribute would be factors that affect the protective lining of the bladder allowing urine to irritate the bladder wall. Contributing factors may include Recurrent UTI's, autoimmune reaction, heredity or allergy. Treatment includes lifestyle changes including diet modification, anti-spasm and anti-histamine medications. 08/18/2023: Plan: Diet modifications discussed with the patient. Follow-up in 6 months. [facility] Medical History (Updated 09/15/23 @ 20:00 by Chiquita Lerner MD) Sacroiliac joint dysfunction of right side Chronic low back pain Recurrent UTI Sensation of pressure in bladder area Urinary frequency Fingertip contusion Numbness and tingling in both hands Facial rash Upper respiratory infection Flu-like symptoms Multiple lipomas Fatigue Polyarthralgia Vitamin D deficiency Dyslipidemia Parathyroid adenoma Anxiety ADHD Family history of colon cancer Family history of skin cancer Facial skin lesion Primary thyroid cancer Post-surgical hypothyroidism Surgical History Hx of thyroidectomy History of tympanostomy tube placement Hx of wisdom tooth extraction Hx of adenoidectomy Hx of tonsillectomy Family History Father No problems noted. 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 Gender identity: Female Cognitive needs: No Hearing needs: No Vision needs: No Review of Systems Const All systems reviewed & are unremarkable except as noted in HPI and below Reports no additional complaints Eyes Reports no additional complaints ENT Reports no additional complaints Card Denies dyspnea Resp Denies cough and Denies dyspnea GI Reports no additional complaints Reports no additional complaints Musc Reports no additional complaints Skin/Breast Denies rash and Denies unusual bruising Neuro Reports no additional complaints Psych Reports no additional complaints Endo Reports no additional complaints Cameron/Lymph Reports no additional complaints Aller/Immun Reports no additional complaints Results AMB Urinalysis, Automated UA Leukoctes 0 Pradeep/uL Last Edit by DEWEY Serrano on 08/18/23 14:39 UA Nitrite Negative Last Edit by DEWEY Serrano on 08/18/23 14:39 UA Urobilinogen 0.2 mg/dL Last Edit by DEWEY Serrano on 08/18/23 14:3 9 UA Protein 0 mg/dL Last Edit by DEWEY Serrano on 08/18/23 14:39 UA pH 7.0 Last Edit by DEWEY Serrano on 08/18/23 14:39 UA Blood 0 John/uL Last Edit by DEWEY Serrano on 08/18/23 14:39 UA Specific Boelus 1.010 Last Edit by DEWEY Serrano on 08/18/23 14: 39 UA Ketone Negative Last Edit by DEWEY Serrano on 08/18/23 14:39 UA Bilirubin 0 mg/dL Last Edit by DEWEY Serrano on 08/18/23 14:39 UA Glucose 0 mg/dL Last Edit by DEWEY Serrano on 08/18/23 14:39 Results Reviewed Results Reviewed: Laboratory Last Values Urine pH (Auto) 7.0 08/18/23 14:38 Specific Boelus (Auto) 1.010 08/18/23 14:38 Urine Protein (Auto) 0 mg/dL 08/18/23 14:38 Glucose (UA)(Auto) 0 mg/dL 08/18/23 14:38 Urine Ketones (Auto) Negative 08/18/23 14:38 Urine Blood (Auto) 0 John/uL 08/18/23 14:38 Urine Nitrite (Auto) Negative 08/18/23 14:38 Urine Bilirubin (Auto) 0 mg/dL 08/18/23 14:38 Urine Urobilinogen (Auto) 0.2 mg/dL 08/18/23 14:38 Leukocyte Esterase (Auto) 0 Pradeep/uL 08/18/23 14:38 Assessment & Plan Assessment & Plan (1) Interstitial cystitis: Code(s): N30.10 - Interstitial cystitis (chronic) without hematuria (2) Bladder pain: Code(s): R39.89 - Other symptoms and signs involving the genitourinary system Plan Diet modifications discussed with the patient. Follow-up in 6 months. Orders: Orders AMB Urinalysis Automated 08/18/23 Z13.9 - Encounter for screening, unspecified Patient Instructions: The patient had an opportunity to ask questions regarding treatment plan. All questions were answered. Laboratory studies and physical exam results were discussed and reviewed in detail. No major barriers to understanding were identified. The patient expressed understanding and agreement with the above treatment plan. The patient is aware they should contact our office by phone for worsening of their current condition or the appearance of new symptoms. Compliance is encouraged with any medications and followup testing that is ordered. It is a privilege to be allowed the opportunity to participate in the urologic care of your patient. If you have any questions or concerns regarding treatment for the above conditions please do not hesitate to contact me. The office telephone contact is [phone]. This note is constructed in part using voice recognition software. While every effort has been made to ensure accuracy clinical specialty rep errors may have been included. Yours sincerely, Chiquita Lerner MD Coding Level of Care Code Est Pt Level 3 (96483) Diagnoses Interstitial cystitis N30.10 Bladder pain R39.89
== END 2023-08-18 14:48 | disposition home or self-care (01) ==
PROVIDERS: PCP Nurse Practitioner Family; Visit Provider Urology
DX: N30.10 Interstitial cystitis (chronic) without hematuria (principal); R39.89 Other symptoms and signs involving the genitourinary system
CPT/HCPCS: 99213

== ENCOUNTER → 2023-08-18 13:52 | Outpatient (BNVA) | payer OTHER, SELFPAY | PROVIDERS: PCP Nurse Practitioner Family; Visit Provider Urology | DX: N30.10 Interstitial cystitis (chronic) without hematuria (principal); R39.89 Other symptoms and signs involving the genitourinary system; Z98.890 Other specified postprocedural states | CPT/HCPCS: 81003 ==

== ENCOUNTER 2023-08-19 16:02 | Outpatient (AMB) | payer OTHER, SELFPAY ==
--- NOTE | 2023-08-19 16:04 | A.OFFVIS_ITS ---
Intake Vital Signs 08/19/23 16:11 Weight 138 lb BP 124/64 Blood Pressure Location Rt brachial Position Sitting Pulse 102 H Intake Visit Reasons: Bilateral upper leg lipomas, discuss surgery Intake Note: This patient presents for an assessment for bilateral upper leg lipomas, discuss surgery. Patient c/o; reports no changes. 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 I had seen her in February,. She had held off on excision at that time because of the summer She feels that these lipomas are now bothering her more. [facility] Medical History Recurrent UTI Sensation of pressure in bladder area Urinary frequency Fingertip contusion Numbness and tingling in both hands Facial rash Upper respiratory infection Flu-like symptoms Multiple lipomas Fatigue Polyarthralgia Vitamin D deficiency Dyslipidemia Parathyroid adenoma Anxiety ADHD Family history of colon cancer Family history of skin cancer Facial skin lesion Primary thyroid cancer Post-surgical hypothyroidism Surgical History Hx of thyroidectomy History of tympanostomy tube placement Hx of wisdom tooth extraction Hx of adenoidectomy Hx of tonsillectomy Family History Father No problems noted. 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 Gender identity: Female Cognitive needs: No Hearing needs: No Vision needs: No Review of Systems Const Denies chills and Denies fever(s) Card Denies chest pain, Denies dyspnea and Denies dyspnea on exertion Resp Denies cough, Denies dyspnea and Denies dyspnea on exertion GI Denies hematochezia and Denies change in bowel habits Denies hematuria Musc Denies back pain and Denies limited range of motion Neuro Denies focal weakness and Denies convulsions Psych Denies depression and Denies mood swings Physical Exam Vital Signs: Last Vital Signs Pulse 102 H 08/19/23 16:11 BP 124/64 08/19/23 16:11 Const General: comfortable and no acute distress Orientation/consciousness: patient oriented x3 Neck Neck: Yes no lymphadenopathy Resp Auscultation: clear to auscultation bilaterally Cardio Rhythm: regular rhythm GI Palpation (GI): Soft to palpation, nontender and no guarding Neuro General: patient oriented x3 Extrem Other: On both anterior thighs is note of lipomatous masses, each about 2.5-3 cm in diameter, well-defined Assessment & Plan Assessment & Plan (1) Multiple lipomas: Code(s): D17.9 - Benign lipomatous neoplasm, unspecified Plan: She now wants to proceed with excision of the lipoma on the right thigh and the left thigh. I explained the technique of excision under local anesthesia. I discussed the risks, benefits, and alternatives. She has given consent. We will schedule her for this to be done here in the office under local anesthesia. Coding Level of Care Code Est Pt Level 3 (23077) Diagnoses Multiple lipomas D17.9
[2023-08-19 16:11] VITALS: BP 124/64; PULSE 102
== END 2023-08-19 16:39 | disposition home or self-care (01) ==
PROVIDERS: PCP Nurse Practitioner Family; Visit Provider Surgery
DX: D17.9 Benign lipomatous neoplasm, unspecified (principal)
CPT/HCPCS: 99213

== ENCOUNTER → 2023-08-19 16:02 | Outpatient (BNVA) | payer OTHER, SELFPAY | PROVIDERS: PCP Nurse Practitioner Family; Visit Provider Surgery ==

== ENCOUNTER 2023-09-01 08:49 | Outpatient (REF) | payer OTHER, SELFPAY | END 2023-09-01 08:50 | disposition home or self-care (01) | LOC: HO.HOSX 08:49 | PROVIDERS: PCP Nurse Practitioner Family; Visit Provider Physical Medicine & Rehabilitation | DX: M54.50 Low back pain, unspecified (principal); G89.29 Other chronic pain; M53.3 Sacrococcygeal disorders, not elsewhere classified | CPT/HCPCS: 72100 ==

== ENCOUNTER 2023-09-01 08:49 | Outpatient (AMB) | payer OTHER, SELFPAY ==
--- NOTE | 2023-09-01 09:05 | A.OFFVIS_ITS ---
Intake Vital Signs 09/01/23 09:09 Weight 138 lb Intake Visit Reasons: N/Prob/ C-L spine pain. Intake Note: Sharri 42 yr old female presents today for her C-L spine pain. States she has had pain for about a few years and has worsen in her neck recently. States she has on and off in her lower back. States she has hx of sciatica since High school. Has seen a chiropractor as well with temporarily relief. Allergies No Known Allergies Allergy (Verified 09/01/23 09:08) HPI HPI Comments History of Present Illness Details Had a recent C-spine CT, see results below. Had recently gone to emergency room 07/25/2023 for neck pain. Been going to PT for neck pain. Neck and back pain, chronic, but separate things. We decided to concentrate lower back today. On/off since HS, used to do cheer leading and gymnastics. Goes to chiropractor as needed, last was 6 months ago. Pain comes monthly, associates it with constipation or sleeping pattern or postural. She does stretches at home. When she goes to yoga, it helps. After 3rd child, pain got worse. Currently sore, pain score today 3/10. Midline, goes to right more so, to hip. Can feel it from sitting to standing. Does not radiate to foot. Sometimes feet goes numb and tingling, more so on right. No foot drop. No bladder/bowel incontinence. She associates this to with ovulation sometimes. No past imaging for this. Treatment done so far: NSAIDs (ibuprofen), tylenol chiro [facility], [facility] Medical History (Updated 09/01/23 @ 09:57 by Melvi Jolley MD) Sacroiliac joint dysfunction of right side Chronic low back pain Recurrent UTI Sensation of pressure in bladder area Urinary frequency Fingertip contusion Numbness and tingling in both hands Facial rash Upper respiratory infection Flu-like symptoms Multiple lipomas Fatigue Polyarthralgia Vitamin D deficiency Dyslipidemia Parathyroid adenoma Anxiety ADHD Family history of colon cancer Family history of skin cancer Facial skin lesion Primary thyroid cancer Post-surgical hypothyroidism Surgical History Hx of thyroidectomy History of tympanostomy tube placement Hx of wisdom tooth extraction Hx of adenoidectomy Hx of tonsillectomy Family History Father No problems noted. 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 Patient was appropriately conversant and oriented. Good historian. MSK: No specific abnormalities found on inspection of the spine and all extremities. No pain with palpation over the lumbar spinous processes, facets are paraspinals. Tender on right SI joint and gluteal muscles. Tightness on right GT. Lumbar ROM was full. Bilateral hip, knee and ankle ROM WNL. No ligamentous laxity or crepitance. No increased effusion. Straight-leg raising test negative. FABERE test positive right. Gillet test stiffness on right. Piriformis test is negative. Strength is 5/5 in all muscle groups tested. No increased tone noted. Neurological: Neurologic examination of the upper and lower extremities was nonfocal with intact sensation, muscle stretch reflexes and without focal motor deficits . Connell?s negative bilaterally. Babinski was down going bilaterally. Clonus was negative. Gait is non-antalgic without loss of balance. Results Reviewed Results Reviewed: Date of Service: 07/25/23 Procedure(s): CT cervical spine wo IV con Accession Number(s): [id number] cc: Sarah Montejo QUALITY ASSURANCE; Susan Quintero~ EXAMINATION: CERVICAL SPINE CT WITHOUT CONTRAST CLINICAL INFORMATION: Pain. Injury. COMPARISON: None. TECHNIQUE: Multidetector volumetric imaging was obtained through the cervical spine without intravenous contrast. Multiplanar reconstructed images in coronal and sagittal orientations were submitted. This CT examination was performed using dose optimization techniques as appropriate, variously including the following: *Automated exposure control *Adjustment of mA and/or kV according to patient size (this includes techniques or standardized protocols for targeted exams where dose is matched to indication/reason for exam; i.e. extremities or head) *Use of iterative reconstruction technique DOSE: 293 mGy-cm FINDINGS: Vertebral body heights are normal. No fractures of the vertebral bodies or posterior elements. Reversal of the normal cervical lordosis is likely positional or degenerative. No vertebral body or posterior element subluxation. Degenerative osteophytes and sclerosis are present at the atlantodental articulation, though normal alignment is maintained. Craniocervical junction is normal. Mild to moderate degenerative disc disease is evident at C6-C7 with loss of intervertebral disc height and endplate uncovertebral osteophytes. More minimal degenerative disc disease at other levels. Facet joints appear relatively well-preserved. Central canal and neural foramina appear patent without appreciable stenoses. Status post right thyroidectomy. The left lobe of the thyroid is small and heterogeneous. Cervical soft tissues are otherwise unremarkable. Imaged portions of the lung apices are clear. CT/CT cervical spine wo IV con IMPRESSION: 1. No acute fracture or malalignment in the cervical spine. 2. Mild to moderate degenerative disc disease at C6-C7. I reviewed records from the following: Ortho-she was seen for right CTR planning Urology Assessment & Plan Assessment & Plan (1) Sacroiliac joint dysfunction of right side: Code(s): M53.3 - Sacrococcygeal disorders, not elsewhere classified (2) Chronic low back pain: Code(s): M54.50 - Low back pain, unspecified; G89.29 - Other chronic pain Qualifiers: Back pain laterality: right Sciatica presence: with sciatica Sciatica laterality: sciatica of right side Qualified Code(s): M54.41 - Lumbago with sciatica, right side; G89.29 - Other chronic pain Plan Based on exam and history, suspect chronic back pain is from right SI joint dysfunction. She gets relief from chiropractor so encouraged her to go back. She can go back to yoga again seen that was helpful as well. We briefly discussed trial of SI joint injection under fluoroscopy or ultrasound, with referral to Pain management. She would like to defer injections until pain is severe. We talked about biomechanics that would exacerbate SI joint pain and what she needs to avoid. For completion, we will get lumbar x-ray done today. Lower suspicion that this is lumbar radiculitis. We talked about difference between SI joint versus lumbar issues using drawings. Exam does not show signs of myelopathy. I will see her again for further evaluation of neck pain. She is to continue PT for neck pain. Assessment and plan discussed with patient, and patient was agreeable. All questions were answered thoroughly. Melvi Jolley MD, CINTIA Board Certified, [place] [employer] and Rehabilitation (ABPMR) Board Certified, [place] Board [employer] Electrodiagnostic Medicine (ABEM) Orders: Orders XR lumbar spine 2-3V Today G89.29 - Other chronic pain, M54.50 - Low back pain, unspecified Coding Level of Care Code Est Pt Level 4 (31958) Diagnoses Sacroiliac joint dysfunction of right side M53.3 Chronic right-sided low back pain with right-sided sciatica M54.41; G89.29 Back pain laterality: right Sciatica presence: with sciatica Sciatica laterality: sciatica of right side
== END 2023-09-01 11:38 | disposition home or self-care (01) ==
PROVIDERS: PCP Nurse Practitioner Family; Visit Provider Physical Medicine & Rehabilitation
DX: M53.3 Sacrococcygeal disorders, not elsewhere classified (principal); M54.41 Lumbago with sciatica, right side; G89.29 Other chronic pain
CPT/HCPCS: 99214

== ENCOUNTER 2023-09-01 11:00 | Outpatient (RCR) | payer OTHER, SELFPAY | END 2024-06-15 07:35 | disposition home or self-care (01) | LOC: HO.PTCHIC 11:00 | PROVIDERS: PCP Nurse Practitioner Family; Visit Provider Nurse Practitioner Family | DX: M54.2 Cervicalgia (principal) | CPT/HCPCS: 97110; 97140; 97162 ==

== ENCOUNTER 2023-09-08 13:03 | Outpatient (REF) | payer OTHER, SELFPAY | END 2023-09-08 13:04 | disposition home or self-care (01) | LOC: HO.SH 13:03 | PROVIDERS: Visit Provider Nurse Practitioner Family | DX: Z01.118 Encounter for examination of ears and hearing with other abnormal findings (principal); H93.293 Other abnormal auditory perceptions, bilateral | CPT/HCPCS: 92557; 92567 ==

== ENCOUNTER 2023-09-22 08:53 | Outpatient (AMB) | payer OTHER, SELFPAY ==
--- NOTE | 2023-09-22 08:58 | A.OFFVIS_ITS ---
Intake Vital Signs 09/22/23 08:59 Weight 138 lb Intake Visit Reasons: PreOp- Rt CTR 10/14 Intake Note: Sharri 42 yr old female who is right hand dominant, presents today for her Pre Op visit for her right hand carpal tunnel release which is scheduled for 10/14/[address] Miranda. Allergies No Known Allergies Allergy (Verified 09/22/23 09:13) HPI PreOp- Rt CTR 10/14 HPI Details Sharri is a 42-year-old [id number] woman who works here at [employer]. She is here to discuss treatment for her right carpal tunnel syndrome. She does feel that this is work related as she does a lot of typing and a lot of writing while at work, and notices that her symptoms primarily occur with these activities or if her hands are elevated for long periods of time. She has developed a new inner ear problem and will be seeing an ENT surgeon in [place] for likely surgery.. [facility] Medical History (Updated 09/15/23 @ 20:00 by Chiquita Lerner MD) Sacroiliac joint dysfunction of right side Chronic low back pain Recurrent UTI Sensation of pressure in bladder area Urinary frequency Fingertip contusion Numbness and tingling in both hands Facial rash Upper respiratory infection Flu-like symptoms Multiple lipomas Fatigue Polyarthralgia Vitamin D deficiency Dyslipidemia Parathyroid adenoma Anxiety ADHD Family history of colon cancer Family history of skin cancer Facial skin lesion Primary thyroid cancer Post-surgical hypothyroidism Surgical History Hx of thyroidectomy History of tympanostomy tube placement Hx of wisdom tooth extraction Hx of adenoidectomy Hx of tonsillectomy Family History Father No problems noted. 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 Gender identity: Female Cognitive needs: No Hearing needs: No Vision needs: No Review of Systems Const All systems reviewed & are unremarkable except as noted in HPI and below Physical Exam Const General: no acute distress and alert Orientation/consciousness: patient oriented x3 Neuro General: patient oriented x3 Extrem Other: Evaluation of Upper Extremity: The patient is alert, oriented, and in no acute distress Neuro: Median, Ulnar, Radial nerves motor and sensory intact and sensation is normal to the tips of all digits No intrinsic or thenar wasting. Good finger cross and good APB muscle belly firing. Vascular: Cap refill brisk ROM: She can make a tight fist and extend her fingers with no locking or catching. No tenderness over the right small finger A1 heather. No subluxation of the extensor mechanism over the 5th MCP joint with finger flexion. I did not witness any catching or locking with her hand motion today in clinic. Again she demonstrates that her catching sensation occurs when going from a persistently extended position for the small finger, to then trying to bring the finger into flexion. EMG nerve conduction study performed on 06/17/2023: IMPRESSION: 1. This is an abnormal study. 2. There is electrodiagnostic evidence for right moderate-severe median neuropathy at the wrist, consistent with carpal tunnel syndrome. 3. There is no electrodiagnostic evidence for median neuropathy on the left. 4. There is no electrodiagnostic evidence for ulnar neuropathy, brachial plexopathy, or cervical radiculopathy. Melvi Jolley MD, CINTIA Psych Appearance: grossly normal Affect: normal affect Attitude: cooperative Assessment & Plan Assessment & Plan (1) Carpal tunnel syndrome of right wrist: Code(s): G56.01 - Carpal tunnel syndrome, right upper limb Plan Assessment and plan: 1. Right carpal tunnel syndrome, moderate to severe Symptoms intermittent but daily I educated her about this condition I discussed operative and non-operative treatment options The patient would like to proceed with surgery The risks and benefits of operative treatment were discussed with the patient and the patient wishes to proceed with surgery. These risks include, but are not limited to risk of damage to blood vessels, nerves, tendons, infection, recurrence, incomplete relief of preoperative symptoms, persistent pain, possible need for further surgery and the risks associated with regional blocks and anesthesia. The plan is to take the patient to the operating room sometime on 10/14/23 for the following procedures: 1. Right carpal tunnel release, under local All of the preoperative paperwork including the consent was reviewed today. All the patient's questions were answered. The patient understands that they will be contacted by our operating room scheduler soon to schedule this procedure She denies Diabetes, blood thinners, asthma, heart, lung, kidney issues She does occasionally take lorazepam for anxiety. She may take 1 before surgery for anxiety if she wishes. Of note, she is seeing an ENT in [place] for an inner ear problem that may require surgery. 2. Left middle finger contusion and subungual hematoma After getting her fingertip caught in a door on 05/23/2023 This appears to be doing well. She has evidence of good nail growth extending perhaps 5 mm past the eponychial fold today. Scribed for Radha Miranda MD by Madan Castaneda, medical billing manager, on 09/22/23 at 9:10 AM, EST. Coding Level of Care Code Est Pt Level 4 (23895) Diagnoses Carpal tunnel syndrome of right wrist G56.01
== END 2023-09-22 09:31 | disposition home or self-care (01) ==
PROVIDERS: PCP Nurse Practitioner Family; Visit Provider Orthopaedic Surgery
DX: G56.01 Carpal tunnel syndrome, right upper limb (principal)
CPT/HCPCS: 99024

== ENCOUNTER → 2023-09-22 08:53 | Outpatient (BNVA) | payer OTHER, SELFPAY | PROVIDERS: PCP Nurse Practitioner Family; Visit Provider Orthopaedic Surgery ==

== ENCOUNTER 2023-09-27 09:26 | Outpatient (AMB) | payer OTHER, SELFPAY ==
--- NOTE | 2023-09-27 09:39 | A.OFFVIS_ITS ---
Intake Intake Visit Reasons: Lipoma removal x2 upper thigh Intake Note: Patient is seen in office for office procedure, excision of upper thigh lipoma x2. Pt c/o: Instructor Weaving Required: No Accompanied by: Self / Same As Patient Allergies No Known Allergies Allergy (Verified 09/27/23 09:41) HPI Lipoma removal x2 upper thigh HPI Details She is here for excision of a lipoma on both the left and the right thigh. [facility] Medical History (Updated 09/15/23 @ 20:00 by Chiquita Lerner MD) Sacroiliac joint dysfunction of right side Chronic low back pain Recurrent UTI Sensation of pressure in bladder area Urinary frequency Fingertip contusion Numbness and tingling in both hands Facial rash Upper respiratory infection Flu-like symptoms Multiple lipomas Fatigue Polyarthralgia Vitamin D deficiency Dyslipidemia Parathyroid adenoma Anxiety ADHD Family history of colon cancer Family history of skin cancer Facial skin lesion Primary thyroid cancer Post-surgical hypothyroidism Surgical History Hx of thyroidectomy History of tympanostomy tube placement Hx of wisdom tooth extraction Hx of adenoidectomy Hx of tonsillectomy Family History Father No problems noted. 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 She tolerated the procedure well. She will be seen in the office in 2 weeks for removal of sutures. Coding Level of Care Code Procedure Only Diagnoses Multiple lipomas D17.9
== END 2023-09-27 10:22 | disposition home or self-care (01) ==
PROVIDERS: PCP Nurse Practitioner Family; Visit Provider Surgery
DX: D17.9 Benign lipomatous neoplasm, unspecified (principal)
CPT/HCPCS: 27327

== ENCOUNTER 2023-09-27 09:26 | Outpatient (REF) | payer OTHER, SELFPAY | END 2023-09-27 09:27 | disposition home or self-care (01) | LOC: HO.LNP 09:26 | PROVIDERS: PCP Nurse Practitioner Family; Visit Provider Surgery | DX: D17.9 Benign lipomatous neoplasm, unspecified (principal) | CPT/HCPCS: 27327; 88304 ==

== ENCOUNTER → 2023-10-08 09:09 | Outpatient (BNVA) | payer OTHER, SELFPAY | PROVIDERS: PCP Nurse Practitioner Family; Visit Provider Surgery | DX: Z48.02 Encounter for removal of sutures (principal) | CPT/HCPCS: 99211 ==

== ENCOUNTER 2023-10-14 10:16 | Day surgery (SDC) | payer OTHER, SELFPAY ==
[2023-10-14 10:33] VITALS: BMI 27.0
[2023-10-14 10:39] VITALS: BP 112/80; PULSE 100; RESP 18; TEMP 36.6; O2SAT 97
--- NOTE | 2023-10-14 12:01 | MHC.SHP ---
Pre-Procedural Eval Section A - 24 Hr Update-Section A only Date of Service: 10/14/23 The patient is an INPATIENT: No Changes since office visit: No Cold of Flu in the past 2 weeks, No New Medical Problems, No Changes in Medication and No Patient answered all questions The patient has been examined within 24 hours of the surgical procedure. The History & Physical has been completed within 30 days and I have reviewed it.: Yes Section B - Complete if H&P > 30 days Chief Complaint: Carpal tunnel syndrome, right upper limb Allergies: Allergies Allergy/AdvReac Type Severity Reaction Status Date / Time No Known Allergies Allergy Verified 10/14/23 10:39 Plan I have reviewed the history and physical and performed a pertinent physical examination on my patient. No changes have occurred unless specified. Time Spent With Patient Time: Total time managing care of this patient today ____ minutes.
--- NOTE | 2023-10-14 12:01 | W.PM.OPN ---
Operative Note Operative Note Date of Service: 10/14/23 Narrative: Preop diagnosis: 1. Right Carpal tunnel syndrome Postop diagnosis: same Procedure: 1. Right Carpal tunnel release Surgeon: Radha Miranda MD Anesthesia: local block using 1% lidocaine with epinephrine Findings: Thickened transverse carpal ligament. EBL: Less than 5 mL Specimens: None Complications: None Disposition: Brought to recovery room in stable condition Plan: Follow-up for 10-14 days for wound check and suture removal Indications: The patient is 42 years old, with right carpal tunnel syndrome that has been unresponsive to nonoperative management. The risks and benefits of operative treatment including but not limited to risk of damage to blood vessels, nerves, tendons, infection, persistent pain, persistent symptoms, or possible need for additional surgery were discussed with the patient and the patient wishes to proceed with surgery. Procedure: Once consent was obtained a local block was performed using a combination of 1% lidocaine with epinephrine. The patient was then brought back to the operating suite and placed on the operative table in supine position. The right upper extremity was prepped and draped in a standard surgical fashion. Once assured that we had a good block, a 2.0 cm longitudinal incision was made centered over the carpal tunnel. The incision was made through the skin to the subcutaneous tissues using a #15 blade. Dissection was made down to the level of the transverse carpal ligament with care being taken to protect the palmar cutaneous nerve. Once the transverse carpal ligament was clearly visualized, a longitudinal incision was made in the transverse carpal ligament 1st using a #15 blade, then using tenotomy scissors under direct visualization. Care was taken to look for and protect the motor branch of the median nerve when seen in this area. Once satisfied with our carpal tunnel release the wound was copiously irrigated with normal saline and hemostasis was obtained with a brief period of local pressure. The skin edges were reapproximated with some 5.0 nylon suture material and a sterile dressing was applied. The patient appears to have tolerated the procedure well and with no complications. All digits were well vascularized at the conclusion of the case. e
[2023-10-14 14:15] VITALS: BP 100/64; PULSE 95; RESP 16; O2SAT 100
== END 2023-10-14 14:16 | disposition home or self-care (01) ==
PROVIDERS: PCP Nurse Practitioner Family; Visit Provider Orthopaedic Surgery
PROC: (CPT 64721; principal; 2023-10-14 10:40)
DX: G56.01 Carpal tunnel syndrome, right upper limb (principal); R20.0 Anesthesia of skin; R20.2 Paresthesia of skin; Z85.850 Personal history of malignant neoplasm of thyroid; E89.0 Postprocedural hypothyroidism; Z79.899 Other long term (current) drug therapy
CPT/HCPCS: 64721; J0171; J2795

== ENCOUNTER → 2023-10-14 10:16 | Outpatient (BNV) | payer OTHER, SELFPAY | PROVIDERS: PCP Nurse Practitioner Family; Visit Provider Orthopaedic Surgery | DX: G56.01 Carpal tunnel syndrome, right upper limb (principal) | CPT/HCPCS: 64721 ==

== ENCOUNTER 2023-10-14 13:10 | Outpatient (AMB) | payer OTHER, SELFPAY ==
--- NOTE | 2023-10-14 13:13 | MHC.OFFVIS ---
Intake Intake Visit Reasons: s/p exc X2 thigh Intake Note: This patient presents for a post-op follow-up assessment status psot excision x2 thigh lipoma. Patient c/o; reports no complaints at this time. 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 Her sutures were actually removed last week by our office nurse. [facility] Medical History Sacroiliac joint dysfunction of right side Chronic low back pain Recurrent UTI Sensation of pressure in bladder area Urinary frequency Fingertip contusion Numbness and tingling in both hands Facial rash Upper respiratory infection Flu-like symptoms Multiple lipomas Fatigue Polyarthralgia Vitamin D deficiency Dyslipidemia Parathyroid adenoma Anxiety ADHD Family history of colon cancer Family history of skin cancer Facial skin lesion Primary thyroid cancer Post-surgical hypothyroidism Surgical History Status post excision of lipoma Hx of thyroidectomy History of tympanostomy tube placement Hx of wisdom tooth extraction Hx of adenoidectomy Hx of tonsillectomy Family History Father No problems noted. 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 Gender identity: Female Cognitive needs: No Hearing needs: No Vision needs: No Review of Systems Const Denies chills and Denies fever(s) Card Denies chest pain, Denies dyspnea and Denies dyspnea on exertion Resp Denies cough, Denies dyspnea and Denies dyspnea on exertion GI Denies hematochezia and Denies change in bowel habits Denies hematuria Musc Denies back pain and Denies limited range of motion Neuro Denies focal weakness and Denies convulsions Psych Denies depression and Denies mood swings Physical Exam Const General: comfortable and no acute distress Extrem Other: Both excision sites on the anterior thighs are well healed Assessment & Plan Assessment & Plan (1) Multiple lipomas: Code(s): D17.9 - Benign lipomatous neoplasm, unspecified Plan: Status post excision. Her path report shows lipomas on both the left and the right thigh. Her incisions are well healed. She can follow up on a p.r.n. basis. Coding Level of Care Code Global (25927) Diagnoses Multiple lipomas D17.9
== END 2023-10-14 13:39 | disposition home or self-care (01) ==
PROVIDERS: PCP Nurse Practitioner Family; Visit Provider Surgery
DX: D17.9 Benign lipomatous neoplasm, unspecified (principal)
CPT/HCPCS: 99024

== ENCOUNTER 2023-10-19 10:37 | Outpatient (AMB) | payer OTHER, SELFPAY ==
[2023-10-19 10:45] VITALS: BMI 26.8
--- NOTE | 2023-10-19 10:45 | MHC.OFFVIS ---
Intake Vital Signs 10/19/23 10:45 Height 5 ft 1 in Weight 142 lb BMI 26.8 Intake Visit Reasons: p/o cts pain Intake Note: Sharri 42 yr old female presents today for her P/O wound check for her rt hand CTR from 10/14/23. States she has mild pain and believes one stitch has popped. Allergies No Known Allergies Allergy (Verified 10/19/23 10:47) HPI p/o cts pain HPI Details Sharri is a 42-year-old [id number] woman who works here at [employer], presenting S/P right carpal tunnel release, DOS: 10/14/23. 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 She is concerned there is an issue with her sutures. She denies any drainage or symptoms of infection. She says she had to re-dress her incision at home last night, on 10/18/23. She says her hand has been very cold since her surgery, so she is unsure if there has been improvement in her sensation. She occasionally keeps just her hand wrapped in a blanket to be more warm. [facility] Medical History Sacroiliac joint dysfunction of right side Chronic low back pain Recurrent UTI Sensation of pressure in bladder area Urinary frequency Fingertip contusion Numbness and tingling in both hands Facial rash Upper respiratory infection Flu-like symptoms Multiple lipomas Fatigue Polyarthralgia Vitamin D deficiency Dyslipidemia Parathyroid adenoma Anxiety ADHD Family history of colon cancer Family history of skin cancer Facial skin lesion Primary thyroid cancer Post-surgical hypothyroidism Surgical History Status post excision of lipoma Hx of thyroidectomy History of tympanostomy tube placement Hx of wisdom tooth extraction Hx of adenoidectomy Hx of tonsillectomy Family History Father No problems noted. 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 She can make a fist and extend all her digits Cap refill is brisk Sensation is intact to the tips of all digits Psych Appearance: grossly normal Affect: normal affect Attitude: cooperative Assessment & Plan Assessment & Plan (1) Carpal tunnel syndrome of right wrist: Code(s): G56.01 - Carpal tunnel syndrome, right upper limb Plan Assessment and plan: 1. Right carpal tunnel syndrome, S/P release DOS: 10/14/23 Pre-operative symptoms intermittent but daily The patient appears to be doing well post-operatively I educated her about the post-operative course I discussed activity modifications, she is to lift nothing heavier than a cellphone for the next 3 weeks She will perform gentle ROM exercises at home She should avoid any underwater activities at this time, but may start washing her hand with soap and water in the shower or same She will follow up as scheduled on 10/26/23 2. Left middle finger contusion and subungual hematoma After getting her fingertip caught in a door on 05/23/2023 Resolved Scribed for Radha Miranda MD by Madan Castaneda, durable medical equipment technician, on 10/19/23 at 10:50 AM, EST. Coding Level of Care Code Global (62002) Diagnoses Carpal tunnel syndrome of right wrist G56.01
== END 2023-10-19 11:04 | disposition home or self-care (01) ==
PROVIDERS: PCP Nurse Practitioner Family; Visit Provider Orthopaedic Surgery
DX: G56.01 Carpal tunnel syndrome, right upper limb (principal)
CPT/HCPCS: 99024

== ENCOUNTER → 2023-10-19 10:37 | Outpatient (BNVA) | payer OTHER, SELFPAY | PROVIDERS: PCP Nurse Practitioner Family; Visit Provider Orthopaedic Surgery ==

== ENCOUNTER 2023-10-26 09:31 | Outpatient (AMB) | payer OTHER, SELFPAY ==
--- NOTE | 2023-10-26 09:49 | MHC.OFFVIS ---
Intake Intake Visit Reasons: PO Rt CTR 10/14/23 AR Allergies No Known Allergies Allergy (Verified 10/19/23 10:47) HPI PO Rt CTR 10/14/23 AR HPI Details Sharri is a 42-year-old [id number] woman who works here at [employer], presenting S/P right carpal tunnel release, DOS: 10/14/23. She is seen today with her son. She says she is doing well, and her sensation has improved. She complains of pain in her left shoulder with activity, and says this is preventing her from sleeping at night. [facility] Medical History Sacroiliac joint dysfunction of right side Chronic low back pain Recurrent UTI Sensation of pressure in bladder area Urinary frequency Fingertip contusion Numbness and tingling in both hands Facial rash Upper respiratory infection Flu-like symptoms Multiple lipomas Fatigue Polyarthralgia Vitamin D deficiency Dyslipidemia Parathyroid adenoma Anxiety ADHD Family history of colon cancer Family history of skin cancer Facial skin lesion Primary thyroid cancer Post-surgical hypothyroidism Surgical History Status post excision of lipoma Hx of thyroidectomy History of tympanostomy tube placement Hx of wisdom tooth extraction Hx of adenoidectomy Hx of tonsillectomy Family History Father No problems noted. 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 Sutures removed and Steri-strips applied She can make a fist and extend all her digits Cap refill is brisk Sensation is intact and normal to the tips of all digits Psych Appearance: grossly normal Affect: normal affect Attitude: cooperative Assessment & Plan Assessment & Plan (1) Carpal tunnel syndrome of right wrist: Code(s): G56.01 - Carpal tunnel syndrome, right upper limb (2) Left shoulder pain: Code(s): M25.512 - Pain in left shoulder Plan Assessment and plan: 1. Right carpal tunnel syndrome, S/P release DOS: 10/14/23 Pre-operative symptoms intermittent but daily Now with normal sensation The patient appears to be doing well post-operatively I educated her about the post-operative course I explained the signs and symptoms of infection, if the patient develops any new or worsening erythema, drainage, pain, or warmth they should contact the clinic or attend the ED. I discussed activity modifications, she is to lift nothing heavier than a cellphone for the next two weeks She will perform gentle ROM exercises at home She should avoid any underwater activities for the next 5 days She should gently massage about the incision site to reduce the risk of hypersensitivity She can follow up prn 2. Left shoulder pain She will schedule an appointment to be seen by a PA for this Scribed for Radha Miranda MD by Madan Castaneda, chief medical technologist, on 10/26/23 at 9:50 AM, EST. Coding Level of Care Code Global (30500) Diagnoses Carpal tunnel syndrome of right wrist G56.01 Left shoulder pain M25.512
== END 2023-10-26 09:54 | disposition home or self-care (01) ==
PROVIDERS: PCP Nurse Practitioner Family; Visit Provider Orthopaedic Surgery
DX: G56.01 Carpal tunnel syndrome, right upper limb (principal); M25.512 Pain in left shoulder
CPT/HCPCS: 99024

== ENCOUNTER → 2023-10-26 09:31 | Outpatient (BNVA) | payer OTHER, SELFPAY | PROVIDERS: PCP Nurse Practitioner Family; Visit Provider Orthopaedic Surgery ==

== ENCOUNTER 2023-11-11 09:13 | Outpatient (REF) | payer OTHER, SELFPAY ==
--- NOTE | ~2023-11-11 | XR_ITS ---
EXAMINATION: XR SHOULDER, LEFT CLINICAL INFORMATION: Left shoulder pain. COMPARISON: None available. TECHNIQUE: Three views of the left shoulder. FINDINGS: The bones and soft tissues appear unremarkable. No fracture appreciated. Glenohumeral and acromioclavicular alignment is anatomic with normal joint space. No abnormal soft tissue calcifications. XR/XR shoulder LT min 2V IMPRESSION: Normal plain film examination of the left shoulder.
== END 2023-11-11 09:14 | disposition home or self-care (01) ==
LOC: HO.HOSX 09:13
PROVIDERS: Visit Provider Orthopaedic Surgery
DX: M25.512 Pain in left shoulder (principal)
CPT/HCPCS: 73030

== ENCOUNTER 2023-11-11 10:11 | Outpatient (AMB) | payer OTHER, SELFPAY ==
--- NOTE | 2023-11-11 10:13 | MHC.OFFVIS ---
Intake Intake Visit Reasons: Newprob- Lt shoulder pain Intake Note: Sharri is a 32 year old right hand dominant female who presents today for a new problem visit with complaints of right shoulder pain. She recently was seen with Dr. Miranda for right Carpal Tunnel Release 10/14/23. Pain has been ongoing for about 2 months now, increased pain with range of motion Allergies No Known Allergies Allergy (Verified 10/19/23 10:47) HPI Newprob- Lt shoulder pain HPI Details Sharri is a 43 year old woman who works here at [employer], presenting with complaints of lefyt shoulder pain. She reports pain in her left shoulder for ~6 weeks now. Her pain occurs with daily activity, and is worse at night which is preventing her from sleeping comfortably. [facility] Medical History Sacroiliac joint dysfunction of right side Chronic low back pain Recurrent UTI Sensation of pressure in bladder area Urinary frequency Fingertip contusion Numbness and tingling in both hands Facial rash Upper respiratory infection Flu-like symptoms Multiple lipomas Fatigue Polyarthralgia Vitamin D deficiency Dyslipidemia Parathyroid adenoma Anxiety ADHD Family history of colon cancer Family history of skin cancer Facial skin lesion Primary thyroid cancer Post-surgical hypothyroidism Surgical History Status post excision of lipoma Hx of thyroidectomy History of tympanostomy tube placement Hx of wisdom tooth extraction Hx of adenoidectomy Hx of tonsillectomy Family History Father No problems noted. 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 Gender identity: Female Cognitive needs: No Hearing needs: No Vision needs: No Review of Systems Const All systems reviewed & are unremarkable except as noted in HPI and below Physical Exam Const General: no acute distress, alert and awake Orientation/consciousness: patient oriented x3 HEENT Head: Yes normocephalic and Yes atraumatic Eyes EOM: EOMs intact bilaterally Resp Effort & Inspection: normal respiratory effort and able to speak in complete sentences Cardio Jugular venous distension: no JVD Skin General skin exam: turgor normal Rashes: no rashes Neuro General: patient oriented x3 Extrem Other: Full ROM Neg but painful EC +H/N Psych Appearance: grossly normal Affect: normal affect Attitude: cooperative Results Reviewed Results Reviewed: I personally reviewed relevant radiographs. nl shoulder radiographs Assessment & Plan Assessment & Plan (1) Left shoulder pain: Code(s): M25.512 - Pain in left shoulder Plan: Bursitis like symptoms. Instructed on therapeutic exercise program. If her pain does not improve may consider formal PT and/or injections. Plan Prepared for Jani Hathaway MD by Madan Castaneda, medical delivery driver, on 11/11/23 at 10:18 AM, EST. Orders: Orders XR shoulder LT min 2V Today M25.519 - Pain in unspecified shoulder Coding Level of Care Code Est Pt Level 3 (75022) Diagnoses Left shoulder pain M25.512
== END 2023-11-11 10:47 | disposition home or self-care (01) ==
PROVIDERS: PCP Nurse Practitioner Family; Visit Provider Orthopaedic Surgery
DX: M25.512 Pain in left shoulder (principal)
CPT/HCPCS: 99213

== ENCOUNTER 2023-12-06 13:14 | Outpatient (REF) | payer OTHER, SELFPAY | END 2023-12-06 13:15 | disposition home or self-care (01) | LOC: HO.MAMMO 13:14 | PROVIDERS: PCP Nurse Practitioner Family; Visit Provider Nurse Practitioner Family | DX: Z12.31 Encounter for screening mammogram for malignant neoplasm of breast (principal) | CPT/HCPCS: 77063; 77067 ==

== ENCOUNTER → 2023-12-06 13:30 | Outpatient (BNV) | payer OTHER, SELFPAY | PROVIDERS: PCP Nurse Practitioner Family; Visit Provider Radiology Diagnostic Radiology | DX: Z12.31 Encounter for screening mammogram for malignant neoplasm of breast (principal) | CPT/HCPCS: 77063; 77067 ==

== ENCOUNTER 2023-12-06 14:00 | Outpatient (REF) | payer OTHER, SELFPAY ==
[2023-12-06 16:03] LABS: Appearance Urine Clear; Color Urine Yellow; Glucose Urine UA Negative (Negative); Leukocyte Esterase Urine Negative (Negative); Nitrite Urine Negative (Negative); Specific Gravity - Urine 1.025 (1.005-1.025); Urine Blood Negative (Negative); Urine Ketones Negative (Negative); Urine Protein Negative (Neg-Trace)
[2023-12-06 16:10] LABS: MANUAL DIFF FLAG NO
[2023-12-06 16:23] LABS: Basophils Absolute Auto 0.1 X10*3/uL (0.0-0.2); Basophils Percent Auto 0.8 % (0-2); Eosinophils Absolute Auto 0.1 X10*3/uL (0.0-0.4); Eosinophils Percent Auto 0.9 % (0-4); Hematocrit 37.6 % (37.0-47.0); Hemoglobin 12.8 g/dl (12.0-16.0); Imm Gran Abs Auto 0.02 X10*3/uL (0.00-0.03); Imm Gran Pct Auto 0.3 % (0.0-0.4); Lymphocytes Absolute Auto 2.3 X10*3/uL (1.2-4.9); Lymphocytes Percent Auto 34.7 % (20-40); Mean Corpuscular Hemoglobin 30.3 pg (27.0-33.0); Mean Corpuscular Volume 89.1 fL (80.0-98.0); Mean Platelet Volume 9.9 fL (9.4-12.3); Monocytes Absolute Auto 0.3 X10*3/uL (0.1-1.2); Monocytes Percent Auto 4.7 % (2-11); Neutrophils Absolute Auto 3.8 x10*3/uL (2.0-8.3); Neutrophils Percent Auto 58.6 % (45-73); Platelet Count 280 X10*3/uL (160-400); Red Blood Count 4.22 X10*6/uL (4.20-5.50); Red Cell Distribution Width 12.2 % (11.0-16.0); White Blood Count 6.6 X10*3/uL (4.8-10.8)
[2023-12-06 16:52] LABS: Alanine Aminotransferase 14 U/L (0-31); Albumin Level 4.5 g/dL (3.5-5.0); Alkaline Phosphatase 64 U/L (39-117); Anion Gap 11 (12-20); Aspartate Amino Transferase 17 U/L (5-31); Bilirubin Total 0.3 mg/dL (0.0-1.0); Blood Urea Nitrogen 13 mg/dL (9-16); Calcium 9.2 mg/dL (8.4-10.2); Carbon Dioxide 26 mmol/L (22-29); Chloride 104 mmol/L (96-108); Cholesterol 228 mg/dL (<200); Estimated Glomerular Filt Rate > 60; Glucose Random 138 mg/dL (60-115); HDL Cholesterol 58 mg/dL (>40); LDL Cholesterol Calculated 154 mg/dL (<100); Potassium 3.8 mmol/L (3.3-5.1); Sodium 137 mmol/L (135-145); Total Protein 7.6 g/dL (6.5-8.0); Triglycerides 80 mg/dL (<150)
[2023-12-06 17:09] LABS: TSH reflex Free T4 2.02 uIU/mL (0.32-4.0); Vitamin D 25-OH Total 37.3 ng/mL (>30)
[2023-12-07 04:37] LABS: ~HepC Num1 0.19 S/CO (0.00-0.79); ~Hepatitis C Antibody Nonreactive (Nonreactive)
[2023-12-07 18:03] LABS: Rubella IgG Antibody 1.74 Index
== END 2023-12-06 14:01 | disposition home or self-care (01) ==
LOC: HO.HMGCLDS 14:00
PROVIDERS: PCP Nurse Practitioner Family; Visit Provider Nurse Practitioner Family
DX: Z00.00 Encounter for general adult medical examination without abnormal findings (principal); Z11.59 Encounter for screening for other viral diseases; E55.9 Vitamin D deficiency, unspecified; E89.0 Postprocedural hypothyroidism
CPT/HCPCS: 36415; 80053; 80061; 81003; 82306; 84443; 85025; 86735; 86762; 86765; 86803

== ENCOUNTER 2023-12-10 12:51 | Outpatient (REF) | payer OTHER, SELFPAY ==
--- NOTE | ~2023-12-10 | MR_ITS ---
EXAMINATION: MR SHOULDER WITHOUT CONTRAST, LEFT CLINICAL INFORMATION: Left shoulder pain, bursitis COMPARISON: Left shoulder x-ray on 11/11/2023 TECHNIQUE: MRI of the shoulder without contrast was performed on a high-field scanner. FINDINGS: ROTATOR CUFF: The Left supraspinatus tendon is diffusely thickened with intrasubstance T2 hyperintensity extending to the insertion. The infraspinatus tendon is also thickened, with mild intrasubstance T2 hyperintensity. LABRUM: The glenoid labrum is unremarkable. TENDONS: The biceps anchor and extraarticular portion of the biceps tendon are intact. The subscapularis muscle and tendon attachment are normal. ACROMIOCLAVICULAR JOINT: The acromioclavicular joint is unremarkable. BONES: The acromion process shows normal flat anterior end without impingement. No focal bone lesions with abnormal signal can be seen. CARTILAGE: Articular cartilage of the humeral head and glenoid fossa are intact. There is moderate left glenohumeral joint effusion. MR/MR shoulder LT wo con IMPRESSION: 1. Moderate left glenohumeral joint effusion. 2. Moderate supraspinatus tendinosis. 3. Mild infraspinatus tendinosis. 4. No evidence of glenoid labral tear.
== END 2023-12-10 12:52 | disposition home or self-care (01) ==
LOC: HO.MRI 12:51
PROVIDERS: PCP Nurse Practitioner Family; Visit Provider Nurse Practitioner Family
DX: M75.52 Bursitis of left shoulder (principal)
CPT/HCPCS: 73221

== ENCOUNTER 2023-12-23 15:26 | Outpatient (AMB) | payer OTHER, SELFPAY ==
--- NOTE | 2023-12-23 15:27 | MHC.OFFVIS ---
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 Doing well with no concerns. Mood changes, weight gain, headaches, sweating, itchy nipples, she is concerned with breast are larger since her approximate 10 lb weight gain after having children. Regular monthly menses up until this past August, spaced for two months. Currently has her cycle today. 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 No abnormal findings with nipple area or skin rashes, advised to use an emollient cream such as Eucerin to see if there is any improvement in avoid using the loofa to the area avoid soap also. She tries to eat healthy and stays active with exercise. Currently is not sexually active w/partner. She denies vaginal itching and irritation. Last pap smear 2022, negative. Mammogram: 2023, pending final read and report. TSH on 12/06/2023 was 2.02. Thyroidectomy for cancer. [facility] Medical History Sacroiliac joint dysfunction of right side Chronic low back pain Recurrent UTI Sensation of pressure in bladder area Urinary frequency Fingertip contusion Numbness and tingling in both hands Facial rash Upper respiratory infection Flu-like symptoms Multiple lipomas Fatigue Polyarthralgia Vitamin D deficiency Dyslipidemia Parathyroid adenoma Anxiety ADHD Family history of colon cancer Family history of skin cancer Facial skin lesion Primary thyroid cancer Post-surgical hypothyroidism Surgical History Status post excision of lipoma Hx of thyroidectomy History of tympanostomy tube placement Hx of wisdom tooth extraction Hx of adenoidectomy Hx of tonsillectomy Family History (Updated 12/23/23 @ 15:35 by DEWEY Mendoza) Father Basal cell adenocarcinoma Mother Heart murmur Diabetes mellitus Stroke Paternal Grandmother Colon cancer Ovarian cancer Paternal Aunt Breast cancer Paternal Aunt Skin cancer Social History Household Members: Spouse and Children Housing: House Patient Tobacco Use Status: Never used Tobacco e-Cigarette/Vaping Use: Never Used Second Hand Smoke Exposure: No service: No Current occupational status: employed 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 Sexual orientation: Straight/Heterosexual Gender identity: Female Cognitive needs: No Hearing needs: No Vision needs: No Female Reproductive History Menstrual Duration of menses: 3-5 days Date of last menstrual period: 12/23/23 Total pregnancies: 3 Full term: 3 Number of Living Children: 3 Date of last pap smear: 09/22/22 (neg pap and hpv) Date of Mammogram: 12/06/23 Review of Systems Const All systems reviewed & are unremarkable except as noted in HPI and below Reports as per HPI Eyes Reports no additional complaints ENT Reports no additional complaints Card Reports no additional complaints Resp Reports no additional complaints GI Reports as per HPI and Reports no additional complaints Reports as per HPI Musc Reports no additional complaints Skin/Breast Reports as per HPI Neuro Reports no additional complaints Psych Reports no additional complaints Endo Reports no additional complaints Cameron/Lymph Reports no additional complaints Aller/Immun Reports no additional complaints Physical Exam Vital Signs: Last Vital Signs BP 100/64 12/23/23 15:28 BMI result Body Mass Index 25.5 Const General: cooperative, healthy appearing, no acute distress, well developed and alert Orientation/consciousness: patient oriented x3 HEENT Other: Anterior neck scar Head: Yes normal to inspection Eyes General: appearance normal, both eyes and all related structures Neck Neck: Yes normal visual inspection Thyroid: Thyroid normal Chest Chest palpation & inspection: normal inspection of the chest and other (no puckering, dimpling, peau de orange, retraction, discharge, masses) Breast/axilla inspection: normal inspection of the breasts Breast/axilla palpation: normal palpation of the breasts Resp Effort & Inspection: normal respiratory effort GI Inspection: Yes normal to inspection Palpation (GI): Soft to palpation Rectal Exam - Female: deferred General: Yes bladder normal to palpation External Female Exam: normal external appearance and normal appearance of the urethra Speculum Exam - Vagina: normal appearance of the vagina, normal palpation, normal vaginal discharge and vaginal bleeding Speculum Exam - Cervix: normal appearance of the cervix and normal palpation Bimanual exam- vagina & uterus: normal bimanual exam, normal palpation, uterine size normal, bladder normal to palpation, normal palpation and non-tender Bimanual Exam- Adnexa, other: no masses OB/external & speculum: vaginal bleeding Skin General skin exam: no rashes or lesions noted Rashes: no rashes Neuro General: patient oriented x3 Cognition (Neuro): normal cognition Extrem General: Yes normal to inspection Psych Attitude: cooperative Thought process: Normal thought process present Assessment & Plan Assessment & Plan (1) Encounter for well woman exam with routine gynecological exam: Code(s): Z01.419 - Encounter for gynecological examination (general) (routine) without abnormal findings Plan Discussed: Current recommendations for pap smears per ASCCP guidelines. Breast awareness and periodic breast exams. Maintain a healthy lifestyle including a well balanced diet and routine exercise. Discussed perimenopausal changes, and when to call for bleeding patterns heavier prolonged, less than 3 weeks apart. Self-help measures for comfort reviewed for cramping including [id number] medications and a heating pad. Menopausal diagnosis if no periods for 12 months. Plan labs. If she desires to consider hormone replacement therapy for the treatment of her hot flashes she would need to come back for consult visit. Mammogram yearly. Patient verbalizes understanding and agrees to the plan of care. She was given opportunity to ask questions and all questions were answered to the best of my ability. 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 This note is constructed using voice recognition software. While every effort has been made to ensure accuracy, canal boat operator errors may have been included. Orders: Orders Prolactin Today N92.6 - Irregular menstruation, unspecified, R23.2 - Flushing Follicle Stimulating Hormone Today R23.2 - Flushing HCG Quantitative Today N92.6 - Irregular menstruation, unspecified, O20.0 - Threatened , R23.2 - Flushing Coding Level of Care Code Est Pt Prev Care 40-64y(01351) Diagnoses Encounter for well woman exam with routine gynecological exam Z01.419
[2023-12-23 15:28] VITALS: BP 100/64; BMI 25.5
== END 2023-12-23 16:09 | disposition home or self-care (01) ==
LOC: HO.HWS 15:26
PROVIDERS: PCP Nurse Practitioner Family; Visit Provider Advanced Practice Midwife
DX: Z01.419 Encounter for gynecological examination (general) (routine) without abnormal findings (principal)
CPT/HCPCS: 99396

== ENCOUNTER → 2023-12-23 15:26 | Outpatient (BNVA) | payer OTHER, SELFPAY | PROVIDERS: PCP Nurse Practitioner Family; Visit Provider Advanced Practice Midwife ==

== ENCOUNTER 2023-12-24 12:47 | Outpatient (REF) | payer OTHER, SELFPAY ==
[2023-12-24 16:38] LABS: HCG Quantitative < 2 mIU/mL
[2023-12-25 09:04] LABS: Follicle Stimulating Hormone 19.1 mIU/mL
== END 2023-12-24 12:48 | disposition home or self-care (01) ==
LOC: HO.HMGCLDS 12:47
PROVIDERS: PCP Nurse Practitioner Family; Visit Provider Advanced Practice Midwife
DX: O20.0 Threatened abortion (principal)
CPT/HCPCS: 36415; 83001; 84146; 84702

== ENCOUNTER 2024-01-07 12:45 | Outpatient (AMB) | payer OTHER, SELFPAY ==
[2024-01-07 12:53] VITALS: BMI 25.5
--- NOTE | 2024-01-07 12:53 | MHC.OFFVIS ---
Vital Signs 01/07/24 12:53 Height 5 ft 1 in Weight 135 lb BMI 25.5 Intake Visit Reasons: O.V MRI review Intake Note: Sharri is a 43 year old right hand dominant female who presents today for an MRI review of her left shoulder. MRI 12/10/23: IMPRESSION: 1. Moderate left glenohumeral joint effusion. 2. Moderate supraspinatus tendinosis. 3. Mild infraspinatus tendinosis. 4. No evidence of glenoid labral tear. Allergies No Known Allergies Allergy (Verified 12/23/23 15:28) HPI HPI O.V MRI review : Details: Sharri is a 43 year old right hand dominant female who presents today for an MRI review of her left shoulder. She has been doing home exercises but feels worse and is having difficulty sleeping and engaging in reaching activities. [facility] Medical History Sacroiliac joint dysfunction of right side Chronic low back pain Recurrent UTI Sensation of pressure in bladder area Urinary frequency Fingertip contusion Numbness and tingling in both hands Facial rash Upper respiratory infection Flu-like symptoms Multiple lipomas Fatigue Polyarthralgia Vitamin D deficiency Dyslipidemia Parathyroid adenoma Anxiety ADHD Family history of colon cancer Family history of skin cancer Facial skin lesion Primary thyroid cancer Post-surgical hypothyroidism Surgical History Status post excision of lipoma Hx of thyroidectomy History of tympanostomy tube placement Hx of wisdom tooth extraction Hx of adenoidectomy Hx of tonsillectomy Family History (Updated 12/23/23 @ 15:35 by DEWEY Mendoza) Father Basal cell adenocarcinoma Mother Heart murmur Diabetes mellitus Stroke Paternal Grandmother Colon cancer Ovarian cancer Paternal Aunt Breast cancer Paternal Aunt Skin cancer Social History Household Members: Spouse and Children Housing: House Patient Tobacco Use Status: Never used Tobacco e-Cigarette/Vaping Use: Never Used Second Hand Smoke Exposure: No service: No Current occupational status: employed 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 Site was prepped using aseptic technique. Patient tolerated the procedure well. Primary Site: left shoulder Approach Used: posterolateral Coding - Large joint Procedure code (CPT) selection complete Results Reviewed Results Reviewed: MRI 12/10/23: IMPRESSION: 1. Moderate left glenohumeral joint effusion. 2. Moderate supraspinatus tendinosis. 3. Mild infraspinatus tendinosis. 4. No evidence of glenoid labral tear. Assessment & Plan Assessment & Plan (1) Rotator cuff tendonitis: Code(s): M75.80 - Other shoulder lesions, unspecified shoulder Category: Medical Plan: Injected left shoulder today and I recommend PT for RTC tendonitis Orders: Orders PT Evaluation and Treatment 01/07/24 M75.80 - Other shoulder lesions, unspecified shoulder Coding Level of Care Code Est Pt Level 3 (04635) Diagnoses Rotator cuff tendonitis M75.80 CPT Codes Coding - Large joint: 11533 - Large joint ([id number])
== END 2024-01-07 13:32 | disposition home or self-care (01) ==
PROVIDERS: PCP Nurse Practitioner Family; Visit Provider Orthopaedic Surgery
DX: M75.82 Other shoulder lesions, left shoulder (principal)
CPT/HCPCS: 20610; 99213

== ENCOUNTER → 2024-01-07 12:45 | Outpatient (BNVA) | payer OTHER, SELFPAY | PROVIDERS: PCP Nurse Practitioner Family; Visit Provider Orthopaedic Surgery | DX: M75.82 Other shoulder lesions, left shoulder (principal) | CPT/HCPCS: 20610; 99212; J0665; J1100 ==

== ENCOUNTER 2024-06-22 08:47 | Outpatient (REF) | payer OTHER, SELFPAY ==
[2024-06-22 10:06] LABS: MANUAL DIFF FLAG NO
[2024-06-22 10:10] LABS: Basophils Absolute Auto 0.1 X10*3/uL (0.0-0.2); Basophils Percent Auto 0.9 % (0-2); Eosinophils Absolute Auto 0.1 X10*3/uL (0.0-0.4); Eosinophils Percent Auto 2.6 % (0-4); Hematocrit 37.8 % (37.0-47.0); Imm Gran Abs Auto 0.01 X10*3/uL (0.00-0.03); Imm Gran Pct Auto 0.2 % (0.0-0.4); Lymphocytes Absolute Auto 2.3 X10*3/uL (1.2-4.9); Lymphocytes Percent Auto 43.5 % (20-40); Mean Corpuscular HGB Conc 34.4 g/dl (31.0-35.0); Mean Corpuscular Hemoglobin 30.4 pg (27.0-33.0); Mean Corpuscular Volume 88.5 fL (80.0-98.0); Mean Platelet Volume 9.8 fL (9.4-12.3); Monocytes Absolute Auto 0.4 X10*3/uL (0.1-1.2); Monocytes Percent Auto 6.9 % (2-11); Neutrophils Absolute Auto 2.4 x10*3/uL (2.0-8.3); Neutrophils Percent Auto 45.9 % (45-73); Platelet Count 261 X10*3/uL (160-400); Red Blood Count 4.27 X10*6/uL (4.20-5.50); Red Cell Distribution Width 11.8 % (11.0-16.0); White Blood Count 5.3 X10*3/uL (4.8-10.8)
[2024-06-22 10:58] LABS: Alanine Aminotransferase 21 U/L (0-31); Albumin Level 4.5 g/dL (3.5-5.0); Alkaline Phosphatase 52 U/L (39-117); Anion Gap 10 (12-20); Aspartate Amino Transferase 19 U/L (5-31); Bilirubin Total 0.7 mg/dL (0.0-1.0); Blood Urea Nitrogen 19 mg/dL (9-16); Calcium 9.6 mg/dL (8.4-10.2); Carbon Dioxide 29 mmol/L (22-29); Chloride 106 mmol/L (96-108); Cholesterol 211 mg/dL (<200); Estimated Glomerular Filt Rate > 60; Ferritin 28 ng/mL (10-250); Glucose Random 93 mg/dL (60-115); Iron 157 mcg/dL (30-160); Percent Iron Saturation 53 % (15-50); Sodium 141 mmol/L (135-145); TSH reflex Free T4 1.78 uIU/mL (0.32-4.0); Total Iron Binding Capacity 295 mcg/dL (228-428); Total Protein 7.6 g/dL (6.5-8.0); Unsaturated Iron Binding 138 ug/dL; Vitamin D 25-OH Total 35.9 ng/mL (>30)
[2024-06-22 11:13] LABS: Vitamin B12 562 pg/mL (200-900)
== END 2024-06-22 08:48 | disposition home or self-care (01) ==
LOC: HO.HMGCLDS 08:47
PROVIDERS: PCP Nurse Practitioner Family; Visit Provider Nurse Practitioner Family
DX: E89.0 Postprocedural hypothyroidism (principal); E78.2 Mixed hyperlipidemia; E55.9 Vitamin D deficiency, unspecified; R42 Dizziness and giddiness
CPT/HCPCS: 36415; 80053; 82306; 82465; 82607; 82728; 83540; 84443; 85025

== ENCOUNTER 2024-12-11 13:29 | Outpatient (REF) | payer OTHER, SELFPAY ==
--- OUTSIDE RECORDS SUMMARY | 2024-12-11 15:14 | XMS_ITS ---
Author Organization Harry Ashraf MD Address [address] [place] [phone] Care Team Providers Care Medical I D Sales Name Role Phone Sarah Montejo Primary Care Provider REASON FOR VISIT Lab specimens order needed Encounters Encounter Location Date Provider Diagnosis Harry Ashraf MD [address] [place] [phone] 12/01/2024 Sarah Montejo Plan Of Treatment Next Appt Details Provider Name:Sarah Montejo , 12/28/2024 01:00:00 PM, [address] [place] [address], [place] [address], [place], [place], [phone], Progress Notes * TROYSharriDOB: [birth year] (44 yo F)Acc No.[id number]:12/01/2024 Patient:?Sharri SIMMONS :1980???Age:44 Y???Sex:Female Address:[address] [place] [phone] * true * Date:? Generated for Julio Cesar rowell/Kalia/eTransmitting on:?12/11/2024 03:14 PM EDT
--- OUTSIDE RECORDS SUMMARY | 2024-12-11 15:14 | XMS_ITS ---
Author Organization Harry Ashraf MD Address [address] [place] [phone] Care Team Providers Care Sort Operations Supervisor Name Role Phone Sarah Montejo Primary Care Provider Allergies No Known Allergies REASON FOR VISIT labs Medications Medication SIG (Take, Route, Fr equency, Duration) Notes Start Date End Date Status Estradiol 0.025 MG/24HR 1 patch to skin Transdermal Two times a Week for 30 days 12/05/2024 Act jose Progesterone 200 MG 1 capsule at bedtime Orally Once a day for 30 days 12/05/2024 Active Encounters Encounter Location Date Provider Diagnosis Harry Ashraf MD [address] [phone] 12/05/2024 Sarah Montejo Menopausal and femal e climacteric states N95.1 Assessments Encounter Date Diagnosis (ICD Code) Assessment Notes Treatment Notes Treatment Clinical Notes Section Notes 12/05/2024 Menopausal and female climacteric states (ICD-10 - N95.1) Plan Of Treatment Medication Medication Name Sig Start Date Stop Date Notes Estradiol 0.025 MG/24HR 1 patch to skin Transdermal Two times a Week for 30 days 12/05/2024 Progesterone 200 MG 1 capsule at bedtime Orally Once a day for 30 days 12/05/2024 Next Appt Details Provider Name:Sarah Montejo , 12/28/2024 01:00:00 PM, [address] [place] [address], [place], [place], [phone], Progress Notes * Sharri SIMMONSDOB: [birth year] (44 yo F)Acc No.[id number]:12/05/2024 Patient:?Sharri SIMMONS :1980???Age:44 Y???Sex:Female Address:[address] [place] [id number] * Refills? Start Estradiol Patch Twice Weekly, 0.025 MG/24HR, Transdermal, 8, 1 patch to skin, Two times a Week, 30 days, Refills=2 Start Progesterone Capsule, 200 MG, Orally, 30, 1 capsule at bedtime, Once a day, 30 days, Refills=2 Subjective: * Chief Complaints: * ???Labs * Medical History:? * Surgical History:? * Hospitalization/Major Diagno stic Procedure:? * Medications:? * Allergies:?N.K.D.A.no[Allerg ies Verified] Objective: * Vitals:? Past Vitals:* 11/29/2024 Temp:96.8F, HR:84/min, BP:11 8/72mm Hg, Wt:121lbs, BMI:22.86Index, Ht:5 ft 1 in, Oxygen sat %:98% * 06/21/2024 Temp:97.6F, HR:109/min, Ht:5 ft 1 in, Oxygen sat %:98% * 05/24/2024 Temp:96.5F, HR:65/min, Wt:13 1lbs, BMI:24.75Index, Ht:5 ft 1 in, Oxygen sat %:99% * Physical Examination:? Assessment: * Assessment: 1.?Menopausal and female cli macteric states - N95.1 (Primary)??? Plan: * Treatment: * Procedure Codes:? * true * Date:? Generated for Julio Cesar rowell/Kalia/Faithsmitting on:?12/11/2024 03:13 PM EDT
--- OUTSIDE RECORDS SUMMARY | 2024-12-11 15:14 | XMS_ITS | Clinical Summary ---
Author Organization [facility] Address [address] [place] [address] Phone Care Team Providers Care Meteorologist Liaison Name Role Phone Sarah Montejo NP Primary Care Provider [phone] Encounters Date Type Department Care Team Description 12/05/2024 Telephone Gastroenterology - [address] [phone] Madison Phillips MD Consult from Last 3 Months Social History Tobacco Use Types Packs/Day Years Used Date Smoking Tobacco: Never Assessed Comments Unknown Sex and Gender Information Value Date Recorded Sex Assigned at Not on file Legal Sex Female 10:42 PM EST Gender Identity Not on file Sexual Orientation Not on file Plan of Treatment Upcoming Encounters Date Type Department Care Team (Late st Contact Info) Description 12/27/2024 11:40 AM EDT Consult Gastroenterology - [address] [place] [phone] Sayda Smith NP [address] [facility] [address] [place] [phone] Health Maintenance Due Date Last Done Comments Breast Cancer Screening 1980 Cervical Cancer Screening: Pap Smear 2003 DTaP,Tdap,and Td Vaccines (8 - Td or Tdap) 08/15/2017 08/15/2007, 10/24/1997, 10/14/1987, Additional history exists Depression Screening 04/04/2024 HIV Screening 04/04/2024 Hepatitis C Screening 04/04/2024 Social Influencers of Health Screening 04/04/2024 COVID-19 Vaccine ( season) 2024 Influenza Vaccine (#1) 2024 IPV Vaccines Completed 10/14/1987, 05/15, 05/10/1983, Additional history exists MMR Vaccines Completed 01/04/1996, 02/03/1984 Hepatitis B Vaccines Completed 01/19/1996, 09/29/1995, 08/25/1995 Meningococcal ACWY Vaccine Aged Out 02/20/2003 N o longer eligible based on patient's age to complete this topic HIB Vaccines Aged Out No longer eligi ble based on patient's age to complete this topic HPV Vaccines Aged Out No longer eligi ble based on patient's age to complete this topic Hepatitis A Vaccines Aged Out No long er eligible based on patient's age to complete this topic Meningococcal B Vacine Aged Out No lo nger eligible based on patient's age to complete this topic Pneumococcal Vaccine: Pediatrics (0 to 5 Years) and At-Risk Patients (6 to 64 Years) Aged Out No longer eligible based on patient's age to complete this topic RSV Immunization Patients Under 20 months Aged Out No longer eligible based on patient's age to complete this topic Varicella Vaccines Aged Out No longer eligible based on patient's age to complete this topic Insurance [facility] Care Teams Meteorologist Liaison Relationship Specialty Start Date End Date Sarah Montejo NP [address] [place] [address] PCP - General Family Medicine 12/05/24
--- OUTSIDE RECORDS SUMMARY | 2024-12-11 15:14 | XMS_ITS | Patient Health Record ---
Author Organization [facility] Address [address] [place] [phone] Support Name Relationship Address Phone Sharri Simmons Guarantor Unknown Unavailabl e REASON FOR REFERRAL No Information PLAN OF TREATMENT No Information Insurance Providers Payer Name Payer Address Payer Phone Subscriber Number Group Number Insured Name Patient Relationship to Insured Coverage Start Date Coverage End Date ANIRUDH PEDROZA [address] [place] [address] [id number] Sharri Sandra Self - patient is the insured
--- OUTSIDE RECORDS SUMMARY | 2024-12-11 15:14 | XMS_ITS ---
Author Organization Harry Ashraf MD Address [address] [place] [phone] Care Team Providers Care Workcell Operator Name Role Phone Sarah Montejo Primary Care Provider REASON FOR VISIT Lab mk fax # Encounters Encounter Location Date Provider Diagnosis Harry Ashraf MD [address] [place] [address] [place] [phone] 12/01/2024 Sarah Montejo Plan Of Treatment Next Appt Details Provider Name:Sarah Montejo , 12/28/2024 01:00:00 PM, [address] [place] [address], [place] [address], [place], [place], [phone], Progress Notes * TROY LillieivanDOB: [birth year] (44 yo F)Acc No.[id number]:12/01/2024 Patient:?Sharri SIMMONS :1980???Age:44 Y???Sex:Female Address:[address] [place] [phone] * true * Date:? Generated for Printi lelia/Kalia/eTransmitting on:?12/11/2024 03:14 PM EDT
--- OUTSIDE RECORDS SUMMARY | 2024-12-11 15:14 | XMS_ITS | Patient Health Record ---
Author Organization Harry Ashraf MD Address [address] [place] [address] [phone] Care Team Providers Care Sales Promotion Coordinator Name Role Phone Sarah Montejo Primary Care Provider Allergies No Known Allergies Results Component Value Reference Range Notes MAMMOGRAM, SCREENING Reviewed date:04/03/2024 06:25:47 PM Interpretation: Performing Lab: Notes/Report: Testosterone-[id number] Reviewed date:12/05/2024 04:25:57 PM Interpretation: Performing Lab:[facility], [facility], Phone - [phone], Director - Celina Notes/Report: Testosterone 11 4-50 ng/dL Luteinizing Hormone(LH)-[id number] 83 Reviewed date:12/05/2024 04:25:57 PM Interpretation: Performing Lab:[facility], [facility], Phone - [phone], Director Santana Patrick Notes/Report: LH 28.1 Adult Female Range Follicular phase 2.4 - 12.6 Ovulation phase 14.0 - 95.6 Luteal phase 1.0 - 11.4 Postmenopausal 7.7 - 58.5 FSH-[id number] Reviewed date:12/05/2024 04:25:57 PM Interpretation: Performing Lab:[facility], [facility], Phone - [phone], Director Santana Patrick Notes/Report: FSH 62.9 Adult Female Range Follicular phase 3.5 - 12.5 Ovulation phase 4.7 - 21.5 Luteal phase 1.7 - 7.7 Postmenopausal 25.8 - 134.8 Prolactin-[id number] Reviewed date:12/05/2024 04:25:57 PM Interpretation: Performing Lab:[facility], [address] [place] [address], Phone - [phone], Director - Vidyay Notes/Report: Prolactin 13.6 4.8-33.4 ng/mL Estrogens, Total-[id number] Reviewed date:12/05/2024 04:25:57 PM Interpretation: Performing Lab:[facility], [address] [place] [address], Phone - [phone], Director - Celina Notes/Report: Estrogens, Total 85 Prepubertal < 40 Female Cycle: 1-10 Days 16 - 328 11-20 Days 34 - 501 21-30 Days 48 - 350 Post-Menopausal 40 - 244 CBC With Differential/Platel et-[id number] Reviewed date:12/05/2024 04:25:57 PM Interpretation: Performing Lab:[facility] [place], [address] [place] [address], Phone - [phone], Director - Celina Notes/Report: WBC 7.1 3.4-10.8 x10E3/uL RBC 4.01 3.77-5.28 x10E6/uL Hemoglobin 12.2 11.1-15.9 g/dL Hematocrit 36.4 34.0-46.6 % MCV 91 79-97 fL MCH 30.4 26.6-33.0 pg MCHC 33.5 31.5-35.7 g/dL RDW 12.1 11.7-15.4 % Platelets 229 150-450 x10E3/uL Neutrophils 47 Not Estab. % Lymphs 43 Not Estab. % Monocytes 7 Not Estab. % Eos 2 Not Estab. % Basos 1 Not Estab. % Neutrophils (Absolute) 3.4 1.4-7.0 x10E3/uL Lymphs (Absolute) 3.1 0.7-3.1 x10E3/uL Monocytes(Absolute) 0.5 0.1-0.9 x10E3/uL Eos (Absolute) 0.1 0.0-0.4 x10E3/uL Baso (Absolute) 0.1 0.0-0.2 x10E3/uL Immature Granulocytes 0 Not Estab. % Immature Grans (Abs) 0.0 0.0-0.1 x10E3/uL Comp. Metabolic Panel ([id number] Reviewed date:12/05/2024 04:25:57 PM Interpretation: Performing Lab:[facility] [place], [address] [facility], Phone - [phone], Director - Celina Notes/Report: Glucose 94 70-99 mg/dL BUN 14 6-24 mg/dL Creatinine 0.83 0.57-1.00 mg/dL eGFR 90 >59 mL/min/1.73 BUN/Creatinine Ratio 17 9-23 Sodium 141 134-144 mmol/L Potassium 4.0 3.5-5.2 mmol/L Chloride 103 96-106 mmol/L Carbon Dioxide, Total 22 20-29 mmol/L Calcium 9.4 8.7-10.2 mg/dL Protein, Total 7.5 6.0-8.5 g/dL Albumin 4.8 3.9-4.9 g/dL Globulin, Total 2.7 1.5-4.5 g/dL Bilirubin, Total 0.4 0.0-1.2 mg/dL Alkaline Phosphatase 57 44-121 IU/L AST (SGOT) 16 0-40 IU/L ALT (SGPT) 12 0-32 IU/L TSH reflex to [id number] Reviewed date:12/05/2024 04:25:57 PM Interpretation: Performing Lab:[facility] [place], [address] [facility], [place], Phone - [phone], Director - Celina Notes/Report: TSH 1.180 0.450-4.500 uIU/mL Reason For Referral Reason colonoscopy needs ea rly for 1st degree relative with colon cancer faxed Diagnosis 1 Family history of ma lignant neoplasm of digestive organs (Z80.0) Referral Organization Harry ELL[facility] Referring Provider First Name Sarah Referring Provider Last Name Nikia Referring Provider Speciality Nurse Prac titioner Referred Provider Madison Phillips Referred Provider Specialty Gastroentero logy General Notes Maria Guadalupe SALCIDO 11/12 08:34:59 AM >faxed, Maria Guadalupe SALCIDO 12/06/2024 08:30:56 AM >Appt confirmation fax, Gopied chyna Smith 12/27/24 @ 1140am Referral Priority Routine Referral Appointment Date 12/27/2024 Medications Medication SIG (Take, Route, Frequency, Duration) Notes Start Date End Date Status Naproxen 500 MG 1 tablet with food o r milk as needed Orally every 12 hrs for 30 days 11/29/2024 12/29/2024 Active Ondansetron 4 MG TAKE 1 TABLET BY BEN TH EVERY 8 HOURS Oral daily for 30 days Active Propranolol HCl 40 MG 1 tablet Orally on ce a day for 90 days Active Estradiol 0.025 MG/24HR 1 patch to skin Transdermal Two times a Week for 30 days 12/05/2024 Active Progesterone 200 MG 1 capsule at bedtime Orally Once a day for 30 days 12/05/2024 Active Levothyroxine Sodium 100 MCG 1 tablet in the morning on an empty stomach Orally Once a day for 90 days Active Adderall XR 25 MG 1 capsule in the mor karoline Orally Once a day Active Adderall 5 MG 1 tablet at 2pm Oral ly once Active Immunizations Vaccine Route Administration Date Status Comme nts *Tdap Unknown 05/01/2020 Administered *Tdap Unknown 06/23/2017 Administered *Tdap Unknown 12/15/2016 Administered [id number]-63-Wdreqda Vaccine Unknown 01/03/2021 Administere d DTP Unknown 10/14/1987 Administered DTP Unknown 06/08/1984 Administered DTP Unknown 05/10/1983 Administered DTP Unknown 03/10/1983 Administered DTP Unknown 01/07/1983 Administered Hep B, adolescent or pediatr ic (11-19), 3 dose schedule Unknown 01/19/1996 Administered Hep B, adolescent or pediatr ic (11-19), 3 dose schedule Unknown 09/29/1995 Administered Influenza-Afluria (IIV4) Unknown 06/29/2018 Administere d Meningococcal MPSV4 Unknown 02/20/2003 Administered MMR Unknown 01/04/1996 Administered MMR Unknown 02/03/1984 Administered OPV Unknown 10/14/1987 Administered OPV Unknown 06/08/1984 Administered OPV Unknown 05/10/1983 Administered OPV Unknown 03/10/1983 Administered OPV Unknown 01/07/1983 Administered Td (adult), absorbed Unknown 10/24/1997 Administered Social History Tobacco Use: Social History Observation Description Date Details (start date - stop date) Never Smoker NA - NA Tobacco Use/Smoking Question Answer Notes Are you a nonsmoker Additional Findings: Tobacco Non-User Aggressive non-smoker Alcohol Screen (Audit-C) Question Answer Notes Did you have a drink contain ing alcohol in the past year? Yes How often did you have a dri nk containing alcohol in the past year? Monthly or less (1 point) How many drinks did you have on a typical day when you were drinking in the past year? 1 or 2 drinks (0 point) How often did you have 6 or more drinks on one occasion in the past year? Never (0 point) Points 1 Interpretation Negative AUDIT-C (Standard) Question Answer Notes Did you have a drink contain ing alcohol in the past year? Yes How often did you have six o r more drinks on one occasion in the past year? Never (0 point) How many drinks did you have on a typical day when you were drinking in the past year? 1 or 2 drinks (0 point) How often did you have a dri nk containing alcohol in the past year? 2 to 4 times a month (2 points) Points 2 Interpretation Negative Problems Problem Type SNOMED Code ICD Code Onset Dates Problem Status W/U Status Risk Notes Problem Vitamin D deficiency (51650466) Vitamin D deficiency, unspecified (E55.9) Active confirmed Problem Mixed hyperlipidemia (995172372) Mixed hyperlipidemia (E78.2) Active confirmed Problem Postoperative Hypothyroidism (02931707) Postprocedural hypothyroidism (E89.0) Active confirmed Problem Mild major depression, single episode (76359524) Major depressive disorder, single episode, mild (F32.0) Active confirmed Problem Generalized anxiety disorder (87941615) Generalized anxiety disorder (F41.1) Active confirmed Problem Attention deficit hyperactivity disorder, combined type (31465528) Attention-deficit hyperactivity disorder, combined type (F90.2) Active confirmed Problem Ophthalmoplegic migraine, 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 Problem Episodic tension-type headache (259430291) Episodic tension-type headache, not intractable (G44.219) Active confirmed Problem Vestibular disorder (04401635) Other disorders of vestibular function, 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) Active confirmed Problem Allergic rhinitis caused by pollen (disorder) (85060227) Allergic rhinitis due to pollen (J30.1) Active confirmed Problem Recurrent oral aphthae (499496780) 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) Active confirmed Problem Menopause (177518901) Menopausal and female climacteric states (N95.1) Active confirmed Problem Paresthesia (finding) (11845682) Paresthesia of skin (R20.2) Active confirmed Problem Abnormal gait (57971448) Unsteadiness on feet (R26.81) Active confirmed Problem Acquired absence (89473107) 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) Active confirmed Problem Chronic idiopathic constipation (98951646) Chronic idiopathic constipation (K59.04) Active confirmed Vital Signs Heart Rate 84 /min 11/29/2024 Temperature 96.8 degrees Fahrenheit 11/29/2024 Blood pressure diastolic 72 mm Hg 11/29/2024 Oximetry 98 % 11/29/2024 Height 5 ft 1 in in 11/29/2024 Blood pressure systolic 118 mm Hg 11/29/2024 Weight 121 lbs 11/29/2024 BMI 22.86 kg/m2 11/29/2024 Encounters Encounter Location Date Provider Diagnosis Harry Ashraf MD [address] [id number] 02/03/2024 Sarah Sweeneye Acute maxillary sinusitis, unspecified J01.00 Harry Ashraf MD [address] [id number] 03/01/2024 Sarah Ashraf MD [address] [id number] 05/24/2024 Sarah Montejo Other disorders of vestibular function, bilateral H81.8X3 ; Dizziness and giddiness R42 ; Generalized anxiety disorder F41.1 ; Major depressive disorder, single episode, mild F32.0 ; Other specified diseases of inner ear, bilateral H83.8X3 ; Postprocedural hypothyroidism E89.0 ; Mixed hyperlipidemia E78.2 and Vitamin D deficiency, unspecified E55.9 Harry Ashraf MD [address] [id number] 06/21/2024 Sarah Montejo Zoster with other complications B02.8 and Recurrent oral aphthae K12.0 Harry Ashraf MD [address] [id number] 07/19/2024 Sarah Montejo Harry Ashraf MD [address] [id number] 07/19/2024 Sarahmanuel Montejo Generalized anxiety disorder F41.1 ; Major depressive disorder, single episode, mild F32.0 and Ophthalmoplegic migraine, not intractable G43.B0 Harry ELLINGTON [address] [place] [address] [id number] 11/29/2024 Sarah Nikia Family history of malignant neoplasm of digestive organs Z80.0 ; Chronic idiopathic constipation K59.04 ; Episodic tension-type headache, not intractable G44.219 ; Menopausal and female climacteric states N95.1 and Postprocedural hypothyroidism E89.0 Harry Ashraf MD [address] [id number] 01/05/2024 [facility] [address] [place] [address] [id number] 01/25/2024 Sarah [facility]raf [facility] [address] [place] [address] [id number] 02/02/2024 Sarah [facility] [address] [place] [address] [id number] 03/21/2024 Sarah Ashraf [facility] [address] [place] [address] [id number] 07/04/2024 Sarah Ashraf MD [address] [id number] 2024 Sarah Ashraf MD [address] [id number] 11/10/2024 Sarah Montejo Nausea R11.0 [facility] [address] [place] [address] [id number] 12/05/2024 Sarah Montejo Menopausal and femal e climacteric states N95.1 [facility] [address] [place] [address] [id number] 12/30/2023 Sarah Ashraf [facility] [address] [place] [address] [id number] 02/03/2024 Sarah Ashraf [facility] [address] [place] [address] [id number] 02/03/2024 Sarah Ashraf [facility] [address] [place] [address] [id number] 09/08/2024 Sarah Ashraf [facility] [address] [place] [address] [id number] 11/07/2024 Sarah Ashraf [facility] [address] [place] [address] [id number] 11/07/2024 Sarah Ashraf [facility] [address] [place] [address] [id number] 12/01/2024 Sarah Ashraf MD [address] [id number] 12/01/2024 Sarah Montejo Assessments Encounter Date Diagnosis (ICD Code) Assessment Notes Treatment Notes Treatment Clinical Notes Section Notes 05/24/2024 Other disorders of vestibular function, bilateral (ICD-10 - H81.8X3) Patient has a follow-up with [facility] rep[facility] in June to review extensive testing which she completed in the summer. Patient states there was mention that her symptoms may related to vestibular migraines and encouraged patient to begin vestibular rehab to see if this can help manage some of her symptoms. Provided patient with PT order for vestibular rehab and discussed locations such as [facility] in [place]. 11/10/2024 Nausea (ICD-10 - R11.0) 06/21/2024 Zoster with other complications (ICD-10 - B02.8) Discussed with patient the findings of a linear rash with the beginning signs of blisters noted to the right aspect of her neck. Suspect that this may be shingles given rash appearance as well as description of pain. Will begin treatment with Valtrex as well as Gabapentin and pt to follow up net week if rash does not improve despite these treatments. 06/21/2024 Recurrent oral aphthae (ICD-10 - K12.0) Discussed with patient the single sore area noted to left lower gumline. Suspect that this is a canker sore and do not believe that this is related to suspected shingles on the right aspect of her neck. Would like patient to gargle with warm salt water and to follow-up should area not heal or if she develops more sores in her mouth as she would need to evaluated 12/05/2024 Menopausal and female climacteric states (ICD-10 - N95.1) 07/19/2024 Major depressive disorder, single episode, mild (ICD-10 - F32.0) Stable and pt to follow up with mental health prescriber as scheduled 07/19/2024 Generalized anxiety disorder (ICD-10 - F41.1) Patient to continue working with her therapist weekly to work on coping strategies for her underlying stressors. Patient remains off of all mental health medications and she states she does not want to return to using them. She plans on meeting with a marriage counselor to further assist in the stressors surrounding her marriage 11/29/2024 Family history of malignant neoplasm of digestive organs (ICD-10 - Z80.0) Discussed with patient her concerns of bowel changes as well as her family history of colon cancer. Patient would benefit from a consultation to begin early colonoscopies for colon cancer screening given this family history. Patient agreeable to have a referral placed to Dr. Phillips at this time 11/29/2024 Chronic idiopathic constipation (ICD-10 - K59.04) Spent much time discussing patient's concerns of increased constipation. Will obtain lab work as well as stool cultures for further evaluation as patient shares concerns that she has a parasite given the way her stool has looked previously. Discussed with patient that her slow motility may be the underlying cause for constipation and patient is agreeable to undergo a sits marker study to assess motility. Patient provided with the order and is aware that this is a test she does not need to be scheduled for and can go right to radiology and begin the process to have sits marker testing completed. 02/03/2024 Acute maxillary sinusitis, unspecified (ICD-10 - J01.00) Discussed patient's presenting symptoms and sick symptoms for greater than 2 weeks. Suspect that patient does have maxillary sinusitis and will begin antibiotic to help resolve symptoms. Patient also consider starting Zyrtec at night to assist with sinus congestion and suspicion of seasonal allergies on top of sinusitis symptoms. Patient to follow-up should she have any recurrent symptoms that are not resolved with these treatments 11/29/2024 Episodic tension-type headache, not intractable (ICD-10 - G44.219) Spent much time discussing patient's neck and upper back pain and suspect that this is related to increased tension and stress. Encouraged patient to continue with physical therapy for her left shoulder pain as well as consider acupuncture or massage to help decrease the tension that she feels in her neck. Suspect that the tension is causing tension like headaches. Will increase patient's propranolol to see if this can further manage her anxiety as well as improve her headache symptoms. Patient also begin naproxen to help with inflammation and headache symptoms when they are present. Plan will be for follow-up as scheduled in early December to reassess and see if any of these modalities health helped improve her headache symptoms 07/19/2024 Ophthalmoplegic migraine, not intractable (ICD-10 - G43.B0) Discussed with patient her symptoms of intermittent headaches with left eye twitching suspect that this may be related to ocular/retinal migraines. Encouraged patient to contact [facility] eye care in [place] to schedule an eye appointment and to have her eye dilated for further evaluation as she has not had a normal eye exam in years. 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 Patient to continue working with the specialist to further determine underlying causes for her intermittent episodes of dizziness. 05/24/2024 Generalized anxiety disorder (ICD-10 - F41.1) Patient to continue working with her therapist weekly to work on coping strategies for her underlying stressors. Patient remains off of all mental health medications and states she does not want to return to use of them as she has been working through coping strategies 11/29/2024 Menopausal and female climacteric states (ICD-10 - N95.1) Patient shares concerns of irregular menstrual cycles as well as increased anger, bloating, fatigue, and night sweats. Discussed with patient that although she is in her early 40s patient may be experiencing perimenopausal symptoms. Will obtain baseline hormone levels to assess. Also spent much time discussing HRT therapy with topical treatment should patient's hormones show any irregularities. Patient agreeable to have lab work drawn and begin treatment based off of lab results as well as considering pt's continued symptoms of concern 11/29/2024 Postprocedural hypothyroidism (ICD-10 - E89.0) Discussed with patient her bowel changes as well as increased anxiety, anger episodes, irregular menstrual cycles, and constipation. Discussed that this may all be linked to thyroid abnormalities given patient's previous removal of thyroid gland. Will obtain an updated TSH level to determine if patient's TSH level is out of range which could be the underlying cause for some of her symptoms. 05/24/2024 Major depressive disorder, single episode, mild (ICD-10 - F32.0) Stable and pt to follow up with mental health prescriber as scheduled 05/24/2024 Other specified diseases of inner ear, bilateral (ICD-10 - H83.8X3) Patient was recently evaluated by [facility] given the brain MRI results that were suspicious for third window phenomenon as well as her symptoms of dizziness that come and go. Patient is seeing the neuro carpet repairer in June to review testing results which she completed in the summer 05/24/2024 Postprocedural hypothyroidism (ICD-10 - E89.0) Stable TSH level with previous labs. Will obtain an update TSH level to ensure stable level 05/24/2024 Mixed hyperlipidemia (ICD-10 - E78.2) Patient did have findings of elevated lipid levels with previous lab draws. Will obtain an updated lipid panel to ensure adequate LDL control at this time 05/24/2024 Vitamin D deficiency, unspecified (ICD-10 - E55.9) Will obtain a vitamin D level to assess for underlying deficiency Plan Of Treatment Pending Test Test Name Order Date Ultrasound : Legs, bilateral 01/13/2023 MRI : Shoulder, left 11/29/2023 Sitz Marker Study 11/29/2024 25OH VITAMIN D 01/13/2023 ANTI THYROID PEROXIDASE AB 01/13/2023 ANTITHYROGLOBULIN AB 01/13/2023 CK (CREATINE KINASE) 07/15/2023 CMV IGM ANTIBODY 07/15/2023 COMPLETE CBC WITH DIFF 07/15/2023 COMPLETE CBC WITH DIFF 01/13/2023 COMPLETE URINALYSIS 01/13/2023 COMPLETE URINALYSIS 07/15/2023 COMPREHENSIVE METABOLIC PANEL 07/15/2023 COMPREHENSIVE METABOLIC PANEL 01/13/2023 DHEA SULFATE 01/13/2023 ESTROGENS, TOTAL 01/13/2023 FERRITIN 07/15/2023 FSH 01/13/2023 HEMOGLOBIN A1C 01/13/2023 IRON & TIBC 07/15/2023 LH 01/13/2023 LIPID PANEL 01/13/2023 MAGNESIUM 07/15/2023 MONO W/REFLEX EBV 07/15/2023 PROGESTERONE 01/13/2023 TESTOSTERONE 01/13/2023 TSH WITH REFLEX TO FT4 01/13/2023 TSH WITH REFLEX TO FT4 07/15/2023 VITAMIN B12 07/15/2023 VITAMIN B12 01/13/2023 US Soft Tissue 01/19/2023 ANION GAP 01/13/2023 CO2 01/13/2023 Iron and TIBC-[id number] 05/24/2024 Vitamin [id number] 05/24/2024 Ferritin-[id number] 05/24/2024 CBC With Differential/Platelet- CBC With Differential/Platelet- Measles/Mumps/Rubella Immunity-598729 Vitamin D, 69-Mcagbef-021018 11/29/2023 Vitamin D, 54-Cikfrtu-847162 05/24/2024 HCV Antibody RFX to Quant PCR-[id number] GI Profile, Stool, [id number] 11/29/2024 Comp. Metabolic Panel [id number] 2023 Comp. Metabolic Panel [id number] 2023 LP+Non-HDL Cholesterol-130142 05/24/2024 LP+Non-HDL Cholesterol-[id number] 11/29/2023 UA/M w/rflx Culture, Routine-[id number] 11/11 TSH reflex to [id number] 11/29/2023 TSH reflex to [id number] 05/24/2024 Next Appt Details Provider Name:Sarah Montejo , 12/28/2024 01:00:00 PM, [address] [place] [address], [place] [address], [place], [place], [phone], Insurance Providers Payer Name Payer Address Payer Phone Subscriber Number Group Number Insured Name Patient Relationship to Insured Coverage Start Date Coverage End Date [address] [address] [id number] Valeria castaneda Sharri Self - patient is the insured [facility] [address] [place] [phone] [id number] Valeria castaneda Sharri Self - patient is the insured Medical (General) History Medical History History ICD Code Anxiety Depression ADHD Partial Thyroidectomy (right side) Surgical History Surgery Date(Month/Year) lipoma removal 10/06 cystoscopy 07/2023 carpal tunnel syndrome 10/2023 Hospitalization History Reason Date(Month/Year)
== END 2024-12-11 13:30 | disposition home or self-care (01) ==
LOC: HO.MAMMO 13:29
PROVIDERS: PCP Nurse Practitioner Family; Visit Provider Nurse Practitioner Family
DX: Z12.31 Encounter for screening mammogram for malignant neoplasm of breast (principal)
CPT/HCPCS: 77063; 77067

== ENCOUNTER → 2024-12-11 13:30 | Outpatient (BNV) | payer OTHER, SELFPAY | PROVIDERS: PCP Nurse Practitioner Family; Visit Provider Internal Medicine | DX: Z12.31 Encounter for screening mammogram for malignant neoplasm of breast (principal) | CPT/HCPCS: 77063; 77067 ==

== ENCOUNTER 2025-01-02 09:08 | Outpatient (AMB) | payer OTHER, SELFPAY ==
--- NOTE | 2025-01-02 09:15 | A.OFFVIS_ITS ---
Vital Signs 01/02/25 09:16 Height 5 ft 1 in Weight 123 lb BMI 23.2 BP 100/64 Intake Visit Reasons: [employer] annual exam Allergies No Known Allergies Allergy (Verified 01/02/25 09:16) Is last menstrual period known: Yes Last menstrual period: 12/28/24 HPI Comments Details: She is a premenopausal woman presenting for annual examination. 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 Experiencing hot flashes, workup revealed elevated FSH and LH, her PCP initiated HRT last month. Regular monthly menses were spaced out and short. History of infertility. Currently is not sexually active. She denies vaginal itching and irritation. Declines STD testing. Colonoscopy is scheduled. She tries to eat healthy and stays active with exercise. Family history of breast, colon and ovarian cancer-paternal side. Last pap smear 2022, negative. Mammogram: 2024. Has follow up appt. [facility] Medical History Sacroiliac joint dysfunction of right side Chronic low back pain Recurrent UTI Sensation of pressure in bladder area Urinary frequency Fingertip contusion Numbness and tingling in both hands Facial rash Upper respiratory infection Flu-like symptoms Multiple lipomas Fatigue Polyarthralgia Vitamin D deficiency Dyslipidemia Parathyroid adenoma Anxiety ADHD Family history of colon cancer Family history of skin cancer Facial skin lesion Primary thyroid cancer Post-surgical hypothyroidism Surgical History Status post excision of lipoma Hx of thyroidectomy History of tympanostomy tube placement Hx of wisdom tooth extraction Hx of adenoidectomy Hx of tonsillectomy Family History (Updated 01/02/25 @ 09:42 by April Talavera CNM) Father Basal cell adenocarcinoma Mother Heart murmur Diabetes mellitus Stroke Paternal Grandmother Colon cancer Ovarian cancer Paternal Aunt Breast cancer Paternal Aunt Skin cancer Social History Household Members: Spouse and Children Housing: House Patient Tobacco Use Status: Never used Tobacco e-Cigarette/Vaping Use: Never Used Second Hand Smoke Exposure: No service: No Current occupational status: employed Current occupation: [employer] Sexual orientation: Straight/Heterosexual Gender identity: Female Cognitive needs: No Hearing needs: No Vision needs: No Female Reproductive History Menstrual Duration of menses: <3 days Date of last menstrual period: 12/28/24 Total pregnancies: 3 Full term: 3 Number of Living Children: 3 Date of last pap smear: 09/22/22 (neg pap and hpv) Date of Mammogram: 12/11/24 (Birad 0) Review of Systems Const All systems reviewed & are unremarkable except as noted in HPI and below Reports as per HPI Eyes Reports no additional complaints ENT Reports no additional complaints Card Reports no additional complaints Resp Reports no additional complaints GI Reports as per HPI and Reports no additional complaints Reports as per HPI Musc Reports no additional complaints Skin/Breast Reports as per HPI Neuro Reports no additional complaints Psych Reports no additional complaints Endo Reports no additional complaints Cameron/Lymph Reports no additional complaints Aller/Immun Reports no additional complaints Physical Exam Vital Signs: Last Vital Signs BP 100/64 01/02/25 09:16 BMI result Body Mass Index 23.2 Const General: cooperative, healthy appearing, no acute distress, well developed and alert Orientation/consciousness: patient oriented x3 HEENT Head: Yes normal to inspection Eyes General: appearance normal, both eyes and all related structures Neck Neck: Yes normal visual inspection Thyroid: Thyroid normal Chest Chest palpation & inspection: normal inspection of the chest and other (no puckering, dimpling, peau de orange, retraction, discharge, masses) Breast/axilla inspection: normal inspection of the breasts Breast/axilla palpation: normal palpation of the breasts Resp Effort & Inspection: normal respiratory effort GI Inspection: Yes normal to inspection Palpation (GI): Soft to palpation Rectal Exam - Female: deferred General: Yes bladder normal to palpation External Female Exam: normal external appearance and normal appearance of the urethra Speculum Exam - Vagina: normal appearance of the vagina, normal palpation and normal vaginal discharge Speculum Exam - Cervix: normal appearance of the cervix and normal palpation Bimanual exam- vagina & uterus: normal bimanual exam, normal palpation, uterine size normal, bladder normal to palpation, normal palpation and non-tender Bimanual Exam- Adnexa, other: no masses Skin General skin exam: no rashes or lesions noted Rashes: no rashes Neuro General: patient oriented x3 Cognition (Neuro): normal cognition Extrem General: Yes normal to inspection Psych Attitude: cooperative Thought process: Normal thought process present Assessment & Plan Assessment & Plan (1) Encounter for well woman exam with routine gynecological exam: Code(s): Z01.419 - Encounter for gynecological examination (general) (routine) without abnormal findings Category: Medical Plan Discussed: Current recommendations for pap smears per ASCCP guidelines. Breast awareness and periodic breast exams. Mammogram yearly. Maintain a healthy lifestyle including a well balanced diet and routine exercise. Send for records from PCP. Patient verbalizes understanding and agrees to the plan of care. She was given opportunity to ask questions and all questions were answered to the best of my ability. 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 This note is constructed using voice recognition software. While every effort has been made to ensure accuracy, employee relations advisor errors may have been included. Coding Level of Care Code Est Pt Prev Care 40-64y(72427) Diagnoses Encounter for well woman exam with routine gynecological exam Z01.419
[2025-01-02 09:16] VITALS: BP 100/64; BMI 23.2
--- OUTSIDE RECORDS SUMMARY | 2025-01-02 09:44 | XMS_ITS ---
Author Organization Harry Ashraf MD Address [address] [place] [id number] Care Team Providers Care Activities Director Scouting Name Role Phone Sarah Montejo Primary Care Provider [phone] Allergies No Known Allergies REASON FOR VISIT [...] Location Date Provider Diagnosis Harry Ashraf MD [address] [phone] 12/05/2024 Sarah Montejo Menopausal and femal e [...] Next Appt Details Provider Name:Sarah Montejo , 03/28/2025 02:00:00 PM, [address] [place] [address], [phone], Provider Name:Sarah Montejo , 01/07/2026 01:00:00 PM, [address] [place] [address], [phone], Progress Notes * Sharri SIMMONSDOB: [birth year] (44 yo F)Acc No.[id number]:12/05/2024 Patient:?Sharri SIMMONS :1980???Age:44 Y???Sex:Female Address:[address] [place] [id number] * Refills? Start Estradiol Patch Twice Weekly, [...] true * Date:? Generated for Julio Cesar rowell/Kalia/Shukri on:?01/02/2025 09:44 AM EDT
--- OUTSIDE RECORDS SUMMARY | 2025-01-02 09:45 | XMS_ITS ---
Author Organization Harry Ashraf MD Address [address] [place] [phone] Care Team Providers Care Recording Clerk Name Role Phone MontejoGinoSarah Primary Care Provider Allergies No Known Allergies Results Component Value Reference Range Notes Urinalysis, Complete-[id number] (Not yet reviewed by provider) Interpretation: Performing Lab:[facility] [place], [facility], [place], Phone - [phone], Director - [place] Notes/Report: Test(s) [id number] was developed and its performance characteristics determined by [facility]. It has not been cleared or approved by the Food and Drug Administration. Test(s) [id number] was developed and its performance characteristics determined by [facility]. It has not been cleared or approved by the Food and Drug Administration. Specific [place] 1.017 1.005-1.030 pH 6.0 5.0-7.5 Urine-Color Yellow Yellow Appearance Clear Clear WBC Esterase Negative Negative Protein Negative Negative/Trace Glucose Negative Negative Ketones Negative Negative Occult Blood Negative Negative Bilirubin Negative Negative Urobilinogen,Semi-Qn 0.2 0.2-1.0 mg/dL Nitrite, Urine Negative Negative Microscopic Examination Micr oscopic follows if indicated. Microscopic Examination See below: Micr oscopic was indicated and was performed. WBC None seen 0 - 5 /hpf RBC None seen 0 - 2 /hpf Epithelial Cells (non renal) 0-10 0 - 10 /hpf Casts None seen None seen /lpf Bacteria Few None seen/Few CBC With Differential/Platel et-[id number] (Not yet reviewed by provider) Interpretation: Performing Lab:[facility] [place], [facility], [place], Phone - [phone], Director - [facility] Notes/Report: Test(s) [id number] was developed and its performance characteristics determined by [facility]. It has not been cleared or approved by the Food and Drug Administration. WBC 6.2 3.4-10.8 x10E3/uL RBC 4.08 3.77-5.28 x10E6/uL Hemoglobin 12.2 11.1-15.9 g/dL Hematocrit 38.1 34.0-46.6 % MCV 93 79-97 fL MCH 29.9 26.6-33.0 pg MCHC 32.0 31.5-35.7 g/dL RDW 12.0 11.7-15.4 % Platelets 255 150-450 x10E3/uL Neutrophils 56 Not Estab. % Lymphs 33 Not Estab. % Monocytes 7 Not Estab. % Eos 3 Not Estab. % Basos 1 Not Estab. % Neutrophils (Absolute) 3.4 1.4-7.0 x10E3/uL Lymphs (Absolute) 2.1 0.7-3.1 x10E3/uL Monocytes(Absolute) 0.5 0.1-0.9 x10E3/uL Eos (Absolute) 0.2 0.0-0.4 x10E3/uL Baso (Absolute) 0.1 0.0-0.2 x10E3/uL Immature Granulocytes 0 Not Estab. % Immature Grans (Abs) 0.0 0.0-0.1 x10E3/uL Measles/Mumps/Rubella Immuni ty-[id number] (Not yet reviewed by provider) Interpretation: Performing Lab:[facility], [address] [place] [address], [place], Phone - [phone], Director - [facility] Notes/Report: Test(s) [id number] was developed and its performance characteristics determined by [facility]. It has not been cleared or approved by the Food and Drug Administration. Rubella Antibodies, IgG 2.07 Immune >0.99 inde x Non-immune <0.90 Equivocal 0.90 - 0.99 Immune >0.99 Measles Antibodies, IgG 36.0 Immune >16.4 AU/m L Negative <13.5 Equivocal 13.5 - 16.4 Positive >16.4 Presence of antibodies to Rubeola is presumptive evidence of immunity except when acute infection is suspected. Mumps Abs, IgG 58.1 Immune >10.9 AU/mL Negative <9.0 Equivocal 9.0 - 10.9 Positive >10.9 A positive result generally indicates past exposure to Mumps virus or previous vaccination. Vitamin D, 66-Gmyqtpo-724150 (Not yet reviewed by provider) Interpretation: Performing Lab:[facility] [place], [address] [place] [address], [place], Phone - [phone], Director - [facility] Notes/Report: Test(s) [id number] was developed and its performance characteristics determined by [facility]. It has not been cleared or approved by the Food and Drug Administration. Vitamin D, 25-Hydroxy 25.5 30.0-100.0 ng/mL Vitamin D deficiency has been defined by the [place] [employer] and an Endocrine Society practice guideline as a level of serum 25-OH vitamin D less than 20 ng/mL (1,2). The Endocrine Society went on to further define vitamin D insufficiency as a level between 21 and 29 ng/mL (2). 1. IOM ([place] of [employer]). 2010. Dietary reference intakes for calcium and D. [place]: The National Academies Press. 2. Sanjeev MF, Sanjiv NC, Xavier LESLIE, et al. Evaluation, treatment, and prevention of vitamin D deficiency: an Endocrine Society clinical practice guideline. JCEM. 2010; 96(7):1911-30. HCV Antibody RFX to Quant PC [id number] (Not yet reviewed by provider) Interpretation: Performing Lab:[facility] [place], [address] [place] [address], [place], Phone - [phone], Director - [facility] Notes/Report: Test(s) [id number] was developed and its performance characteristics determined by [facility]. It has not been cleared or approved by the Food and Drug Administration. Test(s) [id number] was developed and its performance characteristics determined by [facility]. It has not been cleared or approved by the Food and Drug Administration. HCV Ab Non Reactive Non Reactive Interpretation: Not infected with HCV unless early or acute infection is suspected (which may be delayed in an immunocompromised individual), or other evidence exists to indicate HCV infection. Comp. Metabolic Panel (14)-[id number] (Not yet reviewed by provider) Interpretation: Performing Lab:[facility] [place], [address] [place] [address], [place], Phone - [phone], Director - [facility] Notes/Report: Test(s) [id number] was developed and its performance characteristics determined by [facility]. It has not been cleared or approved by the Food and Drug Administration. Glucose 84 70-99 mg/dL BUN 16 6-24 mg/dL Creatinine 0.74 0.57-1.00 mg/dL eGFR 104 >59 mL/min/1.73 BUN/Creatinine Ratio 22 9-23 Sodium 138 134-144 mmol/L Potassium 4.2 3.5-5.2 mmol/L Chloride 102 96-106 mmol/L Carbon Dioxide, Total 21 20-29 mmol/L Calcium 9.3 8.7-10.2 mg/dL Protein, Total 7.3 6.0-8.5 g/dL Albumin 4.6 3.9-4.9 g/dL Globulin, Total 2.7 1.5-4.5 g/dL Bilirubin, Total 0.3 0.0-1.2 mg/dL Alkaline Phosphatase 56 44-121 IU/L AST (SGOT) 18 0-40 IU/L ALT (SGPT) 12 0-32 IU/L LP+Non-HDL Cholesterol-33116 5 (Not yet reviewed by provider) Interpretation: Performing Lab:[facility], Phone - [phone], Director - [facility] Notes/Report: Test(s) [id number] was developed and its performance characteristics determined by [facility]. It has not been cleared or approved by the Food and Drug Administration. Cholesterol, Total 213 100-199 mg/dL Triglycerides 126 0-149 mg/dL HDL Cholesterol 52 >39 mg/dL VLDL Cholesterol Eric 23 5-40 mg/dL LDL Chol Calc ([facility]) 138 0-99 mg/dL Non-HDL Cholesterol 161 0-129 mg/dL TSH reflex to [id number] (No t yet reviewed by provider) Interpretation: Performing Lab:[facility], [address] [place] [address], [place], Phone - [phone], Director - [facility] Notes/Report: Test(s) [id number] was developed and its performance characteristics determined by [facility]. It has not been cleared or approved by the Food and Drug Administration. TSH 1.880 0.450-4.500 uIU/mL Phosphorylated Tau 217 (pTau -217) (Not yet reviewed by provider) Interpretation: Performing Lab:[facility], [address], [place], Phone - [phone], Director - [place] Notes/Report: Test(s) [id number] was developed and its performance characteristics determined by [facility]. It has not been cleared or approved by the Food and Drug Administration. p-kjo404 0.12 0.00-0.18 pg/mL Clinical cutoff value was established using samples from a patient cohort characterized with amyloid PET data. A p-ths693 value of >0.18 is a reported surrogate marker for beta amyloid pathology, and can be used to facilitate biological identification of Alzheimer's disease (1). p-dxt066 has also been used in clinical trials to monitor patients on anti-amyloid therapy (2,3). Test performed by [employer] chemiluminescent enzyme immunoassay (CLEIA). Values obtained with different methods cannot be used interchangeably. The validated limit of quantification is 0.06 pg/mL. Assay detection limit is 0.03 pg/mL. Footnotes 1. Manpreet Pond, et al. Diagnostic Accuracy of a Plasma Phosphorylated Tau 217 Immunoassay for Alzheimer Disease Pathology. [facility] (2023). 2. Manpreet Pond, et al. Differential roles of A42/40, p-dbk965 and p-emk905 for Alzheimer's trial selection and disease monitoring. Nature medicine 28.12 (2021): 5142-0588. 3. Florencia SNIHA, Caroline M, Irma SC, et al. Association of [place] Treatment With Exploratory Plasma Biomarkers in Early Symptomatic Alzheimer Disease: A Secondary Analysis of the TRAILBLAZER-ALZ Randomized Clinical Trial . [facility]. 2021;79(12):5719-6968. REASON FOR VISIT Annual Medications Medication SIG (Take, Route, Frequency, Duration) Notes Start Date End Date Status Ondansetron 4 MG TAKE 1 TABLET BY BEN EVERY 8 HOURS Oral daily for 30 days Active Progesterone 200 MG 1 capsule at bedtime Orally Once a day for 30 days Active Estradiol 0.025 MG/24HR 1 patch to skin Transdermal Two times a Week for 30 days Active Propranolol HCl 40 MG 1 tablet Orally on ce a day for 90 days Active Naproxen 500 MG 1 tablet with food o r milk as needed Orally every 12 hrs for 30 days Active Levothyroxine Sodium 100 MCG 1 tablet in the morning on an empty stomach Orally Once a day for 90 days Active Adderall XR 25 MG 1 capsule in the mor karoline Orally Once a day Active Adderall 5 MG 1 tablet at 2pm Oral ly once Active Social History Tobacco Use: Social History Observation [...] Problem Status W/U Status Risk Notes 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) Other ovarian dysfunction (E28.8) Active confirmed Problem Intermenstrual bleeding - irregular (29963567) Excessive and frequent menstruation with irregular cycle (N92.1) Active confirmed Vital Signs Temperature 96.0 degrees Fahrenheit 12/29/19 25 Heart Rate 62 /min 12/28/2024 Blood pressure systolic 112 mm Hg 12/29/19 25 Blood pressure diastolic 66 mm Hg 025 Weight 123 lbs 12/28/2024 BMI 23.24 kg/m2 12/28/2024 Height 5 ft 1 in in 12/28/2024 Oximetry 99 % 12/28/2024 Encounters Encounter Location Date Provider Diagnosis Harry Ashraf MD [address] [phone] 12/28/2024 Sarah Sweeneye Encounter for genera l adult medical examination without abnormal findings Z00.00 ; Menopausal and female climacteric states N95.1 ; Postprocedural hypothyroidism E89.0 ; Episodic tension-type headache, not intractable G44.219 ; Family history of malignant neoplasm of digestive organs Z80.0 ; Chronic idiopathic constipation K59.04 ; Excessive and frequent menstruation with irregular cycle N92.1 ; Other ovarian dysfunction E28.8 ; Attention-deficit hyperactivity disorder, combined type F90.2 ; Other symptoms and signs involving cognitive functions and awareness R41.89 ; Vitamin D deficiency, unspecified E55.9 ; Encounter for screening for malignant neoplasm of colon Z12.11 ; Encounter for screening mammogram for malignant neoplasm of breast Z12.31 ; Encounter for screening for cardiovascular disorders Z13.6 ; Encounter for immunization Z23 ; Encounter for antibody response examination Z01.84 ; Encounter for screening for other viral diseases Z11.59 ; Encounter for screening examination for other mental health and behavioral disorders Z13.39 and Encounter for screening for malignant neoplasm of cervix Z12.4 Assessments Encounter Date Diagnosis (ICD Code) Assessment Notes Treatment Notes Treatment Clinical Notes Section Notes 12/28/2024 Encounter for general adult medical examination without abnormal findings (ICD-10 - Z00.00) General healthcare up-to-date. Will obtain updated routine labs.Plan will be for annual in 1 year 12/28/2024 Menopausal and female climacteric states (ICD-10 - N95.1) Patient continues to have irregular menstrual cycles as well as bloating, fatigue, and night sweats. Patient's recent FSH and LH levels were elevated and suspect that patient is in the early phases of going through menopause. Would like patient to continue tracking her menstrual cycle and she is aware that she will need to be without a menstrual cycle for 12 months straight to say that she is in menopause. Patient also has seen great improvement in her night sweats since beginning topical estradiol patch and oral progesterone pills. Did spend time discussing patient's age in relation to her ovarian dysfunction and would like to move forward with a transvaginal pelvic ultrasound to assess as well as a pituitary MRI. Patient states she did have to go through IVF given her elevated ovarian lab work and would like to further evaluate for any additional causes that are leading to patient's menstrual cycle irregularity. Patient agreeable with this plan 12/28/2024 Postprocedural hypothyroidism (ICD-10 - E89.0) patient's TSH levels have been within normal range. Will obtain an updated TSH level at this time 12/28/2024 Episodic tension-type headache, not intractable (ICD-10 - G44.219) Spent much time discussing patient's neck and upper back pain and suspect that this is related to increased tension and stress. Patient to continue working on coping strategies and previously learned exercises to assist in managing her underlying stress and suspected tension type headaches. Patient aware to follow-up should her headaches worsen or new symptoms of concern began 12/28/2024 Family history of malignant neoplasm of digestive organs (ICD-10 - Z80.0) Discussed with patient her concerns of bowel changes as well as her family history of colon cancer. Patient is pending a colonoscopy in the coming months due to family history as well as unexplained weight loss and bowel changes 12/28/2024 Chronic idiopathic constipation (ICD-10 - K59.04) Patient was recently evaluated by gastroenterology and is doing a bowel prep to assist in managing her severe constipation noted on x-ray. She is then advised to use MiraLAX daily and is pending a colonoscopy in the coming months 12/28/2024 Excessive and frequent menstruation with irregular cycle (ICD-10 - N92.1) Encouraged patient to continue tracking her menstrual cycles. Discussed with patient that she will need to be without a menstrual cycle for 12 months straight to determine her to be in menopause. Will also move forward with a pituitary MRI as well as pelvic transvaginal ultrasound for further evaluation given her high FSH and LH levels 12/28/2024 Other ovarian dysfunction (ICD-10 - E28.8) See plan above 12/28/2024 Attention-deficit hyperactivity disorder, combined type (ICD-10 - F90.2) Stable at present time and patient to remain on current medication regimen as prescribed by her psychiatrist 12/28/2024 Other symptoms and signs involving cognitive functions and awareness (ICD-10 - R41.89) Patient shares concerns that she is often forgetful and cannot recall events that have just happened. Suspect that this is related to being anxious and dealing with mental health diagnoses as well as stressors at home. Will obtain lab work to rule out elevated tau protein levels 12/28/2024 Vitamin D deficiency, unspecified (ICD-10 - E55.9) Will check level to verify that there is no deficiency 12/28/2024 Encounter for screening for malignant neoplasm of colon (ICD-10 - Z12.11) Patient is pending a colonoscopy in the coming months due to unexplained weight loss. 12/28/2024 Encounter for screening mammogram for malignant neoplasm of breast (ICD-10 - Z12.31) Patient recently underwent mammogram due to concerning findings of a right breast mass. She is pending a diagnostic mammogram and ultrasound for further evaluation of a deep asymmetric region in her right breast. 12/28/2024 Encounter for screening for cardiovascular disorders (ICD-10 - Z13.6) Blood pressure stable. Will check for comorbidity of hyperlipidemia and hyperglycemia to further assess risk 12/28/2024 Encounter for immunization (ICD-10 - Z23) Vaccines up-to-date 12/28/2024 Encounter for antibody response examination (ICD-10 - Z01.84) Titers have been checked in the past and there is immunity to rubeola 12/28/2024 Encounter for screening for other viral diseases (ICD-10 - Z11.59) Will screen for hepatitis C as per general recommendation 12/28/2024 Encounter for screening examination for other mental health and behavioral disorders (ICD-10 - Z13.39) PHQ score reviewed and patient to continue working on coping strategies as well as working with a therapist as needed and remaining on her current medication regimen for additional mental health support. Patient to follow-up should she have any new or concerning mental health symptoms so we can provide additional support if needed 12/28/2024 Encounter for screening for malignant neoplasm of cervix (ICD-10 - Z12.4) Patient will be seeing her insecticide expert in December to complete her pap smear to ensure she is up to date with cervical cancer screenings 12/28/2024 Other Plan Of Treatment Medication Medication Name Sig Start Date Stop Date Notes Progesterone 200 MG 1 capsule at bedtime Orally Once a day for 30 days Estradiol 0.025 MG/24HR 1 patch to skin Transdermal Two times a Week for 30 days Propranolol HCl 40 MG 1 tablet Orally on ce a day for 90 days Pending Test Test Name Order Date US Pelvic Transvaginal 12/28/2024 MR Pituitary 12/28/2024 Urinalysis, Complete-[id number] 12/28/2024 CBC With Differential/Platelet-[id number] Measles/Mumps/Rubella Immunity-113910 Vitamin D, 11-Uitrpdd-248814 12/28/2024 HCV Antibody RFX to Quant PCR-[id number] Comp. Metabolic Panel ([id number] 2024 LP+Non-HDL Cholesterol-[id number] 12/28/2024 TSH reflex to [id number] 12/28/2024 Phosphorylated Tau 217 (pTau-217) 2024 Next Appt Details Follow Up: Annual in 1 year, Reason: Provider Name:Sarah Montejo , 03/28/2025 02:00:00 PM, [address] [place] [address], [phone], Provider Name:Sarah Montejo , 01/07/2026 01:00:00 PM, [address] [place] [address], [phone], Progress Notes * Sharri SIMMONSDOB: [birth year] (44 yo F)Acc No.[id number]:12/28/2024 Patient:?Sharri SIMMONS Appointment Provider:?SUZIE Ibanez :1980???Age:44 Y???Sex:Female S upervising Provider:Harry Ashraf MD Date:12/28/2024 Address:[address] [place] [address] [id number] Subjective: * Chief Complaints: * ???1. Annual. * HPI: ???Annual:?Pt presents today for their annual visit. She states she is up-to-date with dental cleanings and vision exams. ???[employer]:? Patient continues to notice irregular menstrual cycles and states her last menstrual period was 10 days ago. Before this most recent menstrual cycle her previous period was 2 months before that. Patient recently began topical estradiol patch and oral progesterone pills for management of hot flashes and perimenopausal symptoms. Her most recent lab work did show ovarian dysfunction as her FSH and LH levels were elevated. Patient states she is scheduled next week for her annual REPA[employer] exam and she is due for an updated Pap smear. She recently completed her mammogram with findings of deep asymmetric findings in the right breast and she is pending an updated diagnostic mammogram and ultrasound of her right breast to reassess the area. ???Abdominal pain:?Patient was recently evaluated by GI due to unexplained weight loss and intermittent abdominal cramping with associated episodes of constipation. She did complete an X-ray and had findings of severe constipation. She is also pending a colonoscopy February 15 and will be doing a bowel cleanse to assist with managing her constipation and then begin MiraLAX daily. ???Depression Screening:?PHQ-2 (2015 Edition)?Little interest or pleasure in doing things??Not at all ?Feeling down, depressed, or hopeless??Not at all ?Total Score?0 * ROS:?General/Constitutional:?Denies?Change in appetite.?Denies?Chills.?Denies?Fever.?Denies?Sleep disturbance.?Denies?Weight gain.?Admits?Weight loss.?Respiratory:?Denies?Cough.?Denies?Shortness of breath.?Denies?Shortness of breath with exertion.?Denies?Sputum production.?Denies?Wheezing.?Cardiovascular:?Denies?Chest pain.?Denies?Chest pain with exertion.?Denies?Claudication.?Denies?Dizziness.?Denies?Dyspnea on exertion.?Denies?Irregular heartbeat.?Denies?Palpitations.?Denies?Shortness of breath.?Denies?Weight gain.?Gastrointestinal:?Denies?Dark Stools.?Admits?Abdominal pain.?Denies?Blood in stool.?Admits?Constipation.?Denies?Decreased appetite.?Denies?Heartburn.?Denies?Nausea.?Denies?Rectal bleeding.?Admits?Weight loss.?Hematology:?Denies?Bleeding problems.?Denies?Easy bruising.?Denies?Prolonged bleeding.?Denies?Swollen glands.?Genitourinary:?Denies?Nocturia.?Denies?Blood in urine.?Denies?Difficulty urinating.?Denies?Frequent urination.? * Medical History:?Anxiety, De pression, ADHD, Partial Thyroidectomy (right side). * Surgical History:?lipoma rem oval 10/06, cystoscopy 07/2023, carpal tunnel syndrome 10/2023. * Hospitalization/Major Diagno stic Procedure:?Denies Past Hospitalization. * Family History:?Father: leandro e, Colon cancer, stroke, skin cancer.?Mother: alive, Stroke, hip and shoulder replacement.?Maternal Grand Mother: , Colon and ovarian cancer.?3 son(s) - healthy. .? 1/2 sibling - Hoshimoto's, ADHD. * Social History:?Tobacco Use:?Tobacco Use/Smoking?Are you a?nonsmoker ?Additional Findings: Tobacco Non-User?Aggressive non-smoker ???Drugs/Alcohol:?Drugs?Have you used drugs other than those for medical reasons in the past 12 months??No ?Alcohol Screen (Audit-C)?Did you have a drink containing alcohol in the past year??Yes ?How often did you have a drink containing alcohol in the past year??Monthly or less (1 point) ?How many drinks did you have on a typical day when you were drinking in the past year??1 or 2 drinks (0 point) ?How often did you have 6 or more drinks on one occasion in the past year??Never (0 point) ?Points?1 ?Interpretation?Negative ?Caffeine?Intake:?3-4 cups per day ?Do you smoke marijuana?: No. ?Do you drink alcohol?: Yes, Socially. ???Miscellaneous:?Exercise: No. ???Drug/Alcohol:?AUDIT-C (Standard)?Did you have a drink containing alcohol in the past year??Yes ?How often did you have six or more drinks on one occasion in the past year??Never (0 point) ?How many drinks did you have on a typical day when you were drinking in the past year??1 or 2 drinks (0 point) ?How often did you have a drink containing alcohol in the past year??2 to 4 times a month (2 points) ?Points?2 ?Interpretation?Negative * Medications:?Taking Adderall 5 MG Tablet 1 tablet at 2pm Orally once , Taking Adderall XR 25 MG Capsule Extended Release 24 Hour 1 capsule in the morning Orally Once a day , Taking Levothyroxine Sodium 100 MCG Tablet 1 tablet in the morning on an empty stomach Orally Once a day , Taking Ondansetron 4 MG Tablet Disintegrating TAKE 1 TABLET BY MOUTH EVERY 8 HOURS Oral daily , Taking Propranolol HCl 40 MG Tablet 1 tablet Orally once a day , Taking Estradiol 0.025 MG/24HR Patch Twice Weekly 1 patch to skin Transdermal Two times a Week , Taking Progesterone 200 MG Capsule 1 capsule at bedtime Orally Once a day , Taking Naproxen 500 MG Tablet 1 tablet with food or milk as needed Orally every 12 hrs , Medication List reviewed and reconciled with the patient * Allergies:?N.K.D.A. Objective: * Vitals:?Temp:96.0F, HR:62/mi n, BP:112/66mm Hg, Wt:123lbs, BMI:23.24Index, Ht:5 ft 1 in, Oxygen sat %:99%. Past Vitals:* 11/29/2024 Temp:96.8F, HR:84/min, BP:11 8/72mm Hg, Wt:121lbs, BMI:22.86Index, Ht:5 ft 1 in, Oxygen sat %:98% * 06/21/2024 Temp:97.6F, HR:109/min, Ht:5 ft 1 in, Oxygen sat %:98% * 05/24/2024 Temp:96.5F, HR:65/min, Wt:13 1lbs, BMI:24.75Index, Ht:5 ft 1 in, Oxygen sat %:99% * Examination: ???General Examination: ?GENERAL APPEARANCE:?Age appropriate, in no acute distress, well developed, well nourished.?HEAD:?normocephalic, atraumatic.?EYES:?extraocular movement intact (EOMI), sclera non-icteric.?NECK/THYROID:?neck supple, full range of motion, no thyromegaly, thyroid normal.?LYMPH NODES:?no axillary, supraclavicular or inguinal adenopathy.?HEART:?regular rate and rhythm, S1, S2 normal.?LUNGS:?clear to auscultation bilaterally.?ABDOMEN:?no hepatosplenomegaly, soft, nontender, nondistended.?BACK:?no kyphosis, no scoliosis.?MUSCULOSKELETAL:?full range of motion of the hip, full range of motion of the knee.?EXTREMITIES:?no clubbing, cyanosis, or edema.?NEUROLOGIC:?nonfocal, alert and oriented, gait normal, motor strength normal upper and lower extremities, no tremor.?PSYCH:?alert, oriented, good eye contact.? Assessment: * Assessment: 1.?Menopausal and female cli macteric states - N95.1???2.?Encounter for general adult medical examination without abnormal findings - Z00.00 (Primary)???3.?Postprocedural hypothyroidism - E89.0???4.?Episodic tension-type headache, not intractable - G44.219???5.?Family history of malignant neoplasm of digestive organs - Z80.0???6.?Chronic idiopathic constipation - K59.04???7.?Excessive and frequent menstruation with irregular cycle - N92.1???8.?Other ovarian dysfunction - E28.8???9.?Attention-deficit hyperactivity disorder, combined type - F90.2???10.?Other symptoms and signs involving cognitive functions and awareness - R41.89???11.?Vitamin D deficiency, unspecified - E55.9?? 12.?Encounter for screening for malignant neoplasm of colon - Z12.11???13.?Encounter for screening mammogram for malignant neoplasm of breast - Z12.31???14.?Encounter for screening for cardiovascular disorders - Z13.6???15.?Encounter for immunization - Z23???16.?Encounter for antibody response examination - Z01.84???17.?Encounter for screening for other viral diseases - Z11.59???18.?Encounter for screening examination for other mental health and behavioral disorders - Z13.39???19.?Encounter for screening for malignant neoplasm of cervix - Z12.4??? Plan: * Treatment: 2.?Menopausal and female cli macteric states? Continue Estradiol Patch Twice Weekly, 0.025 MG/24HR, 1 patch to skin, Transdermal, Two times a Week, 30 days, 8, Refills 2;?Continue Progesterone Capsule, 200 MG, 1 capsule at bedtime, Orally, Once a day, 30 days, 30, Refills 2.?? Clinical Notes: Patient continues to have irregular menstrual cycles as well as bloating, fatigue, and night sweats. Patient's recent FSH and LH levels were elevated and suspect that patient is in the early phases of going through menopause. Would like patient to continue tracking her menstrual cycle and she is aware that she will need to be without a menstrual cycle for 12 months straight to say that she is in menopause. Patient also has seen great improvement in her night sweats since beginning topical estradiol patch and oral progesterone pills. Did spend time discussing patient's age in relation to her ovarian dysfunction and would like to move forward with a transvaginal pelvic ultrasound to assess as well as a pituitary MRI. Patient states she did have to go through IVF given her elevated ovarian lab work and would like to further evaluate for any additional causes that are leading to patient's menstrual cycle irregularity. Patient agreeable with this plan?? 3.?Postprocedural hypothyroi dism?LAB: TSH reflex to [id number] (Collection Date & Time - 12/28/2024 02:03 PM) Clinical Notes: patient's TSH levels have been within normal range. Will obtain an updated TSH level at this time?? 4.?Episodic tension-type hea dache, not intractable? Continue Propranolol HCl Tablet, 40 MG, 1 tablet, Orally, once a day, 90 days, 90 Tablet, Refills 1.?? Clinical Notes: Spent much time discussing patient's neck and upper back pain and suspect that this is related to increased tension and stress. Patient to continue working on coping strategies and previously learned exercises to assist in managing her underlying stress and suspected tension type headaches. Patient aware to follow-up should her headaches worsen or new symptoms of concern began?? 5.?Family history of maligna nt neoplasm of digestive organs? Clinical Notes: Discussed with patient her concerns of bowel changes as well as her family history of colon cancer. Patient is pending a colonoscopy in the coming months due to family history as well as unexplained weight loss and bowel changes?? 6.?Chronic idiopathic consti pation? Clinical Notes: Patient was recently evaluated by gastroenterology and is doing a bowel prep to assist in managing her severe constipation noted on x-ray. She is then advised to use MiraLAX daily and is pending a colonoscopy in the coming months?? 7.?Excessive and frequent me nstruation with irregular cycle?Imaging: US Pelvic Transvaginal Clinical Notes: Encouraged patient to continue tracking her menstrual cycles. Discussed with patient that she will need to be without a menstrual cycle for 12 months straight to determine her to be in menopause. Will also move forward with a pituitary MRI as well as pelvic transvaginal ultrasound for further evaluation given her high FSH and LH levels?? 8.?Other ovarian dysfunction ?Imaging: MR Pituitary Clinical Notes: See plan above?? 9.?Attention-deficit hyperac tivity disorder, combined type? Clinical Notes: Stable at present time and patient to remain on current medication regimen as prescribed by her psychiatrist?? 10.?Other symptoms and signs involving cognitive functions and awareness?LAB: Phosphorylated Tau 217 (pTau-217) (Collection Date & Time - 12/28/2024 02:03 PM) Clinical Notes: Patient shares concerns that she is often forgetful and cannot recall events that have just happened. Suspect that this is related to being anxious and dealing with mental health diagnoses as well as stressors at home. Will obtain lab work to rule out elevated tau protein levels?? 11.?Vitamin D deficiency, un specified?LAB: Vitamin D, [id number] (Collection Date & Time - 12/28/2024 02:03 PM) Clinical Notes: Will check level to verify that there is no deficiency?? 12.?Encounter for screening for malignant neoplasm of colon? Clinical Notes: Patient is pending a colonoscopy in the coming months due to unexplained weight loss.?? 13.?Encounter for screening mammogram for malignant neoplasm of breast? Clinical Notes: Patient recently underwent mammogram due to concerning findings of a right breast mass. She is pending a diagnostic mammogram and ultrasound for further evaluation of a deep asymmetric region in her right breast.?? 14.?Encounter for screening for cardiovascular disorders?LAB: Urinalysis, Complete-[id number] (Collection Date & Time - 12/28/2024 02:03 PM) ?LAB: CBC With Differential/Platelet-[id number] (Collection Date & Time - 12/28/2024 02:03 PM) ?LAB: Comp. Metabolic Panel ([id number] (Collection Date & Time - 12/28/2024 02:03 PM) ?LAB: LP+Non-HDL Cholesterol-148465 (Collection Date & Time - 12/28/2024 02:03 PM) Clinical Notes: Blood pressure stable. Will check for comorbidity of hyperlipidemia and hyperglycemia to further assess risk?? 15.?Encounter for immunizati on? Clinical Notes: Vaccines up-to-date?? 16.?Encounter for antibody r esponse examination?LAB: Measles/Mumps/Rubella Immunity-[id number] (Collection Date & Time - 12/28/2024 02:03 PM) Clinical Notes: Titers have been checked in the past and there is immunity to rubeola?? 17.?Encounter for screening for other viral diseases?LAB: HCV Antibody RFX to Quant PCR-[id number] (Collection Date & Time - 12/28/2024 02:03 PM) Clinical Notes: Will screen for hepatitis C as per general recommendation?? 18.?Encounter for screening examination for other mental health and behavioral disorders? Clinical Notes: PHQ score reviewed and patient to continue working on coping strategies as well as working with a therapist as needed and remaining on her current medication regimen for additional mental health support. Patient to follow-up should she have any new or concerning mental health symptoms so we can provide additional support if needed?? 19.?Encounter for screening for malignant neoplasm of cervix? Clinical Notes: Patient will be seeing her insecticide expert in December to complete her pap smear to ensure she is up to date with cervical cancer screenings?? * Procedure Codes:?11717 P/M C OUNSEL, INDIV 15 MIN * Follow Up:?Annual in 1 year * Images: Billing Information: * Visit Code:? 80985 Office Visit, Est Pt., Level 4. Modifiers: G2211 Complex E/M Visit. Modifiers: 25 10481 Preventive Care Est Pt. Age 40-64. * Procedure Codes:? 85876 P/M AQUATIC PERFORMER, INDIV 15 MIN. * Electronic signature of Jackelin Ashraf MD on 01/02/2025 at 09:45 AM EDT Sign off status: Pending * Appointment Provider:?SUZIE Ibanez Date:?12/28/2024 Generated for Julio Cesar rowell/Kalia/eTransmitting on:?01/02/2025 09:45 AM EDT History and Physical Notes * HPI (History of Present Illness) Category Sub-Category Detail Notes Category Not es Depression Screening PHQ-2 (2015 Edition) Little interest or pleasure in doing things?: Not at all Feeling down, depressed, or hopeless?: N ot at all Total Score: 0 Examination Category Sub-Category Detail Notes Category Not es General Examination GENERAL APPEARANCE: Age appr opriate, in no acute distress, well developed, well nourished HEAD: normocephalic, atrau matic EYES: extraocular movement intact (EOMI), sclera non-icteric NECK/THYROID: neck supple, full ra nge of motion, no thyromegaly, thyroid normal HEART: regular rate and rhy thm, S1, S2 normal LUNGS: clear to auscultatio n bilaterally ABDOMEN: no hepatosplenomegal y, soft, nontender, nondistended NEUROLOGIC: nonfocal, alert and oriented, gait normal, motor strength normal upper and lower extremities, no tremor EXTREMITIES: no clubbing, cyanosi s, or edema BACK: no kyphosis, no scol iosis MUSCULOSKELETAL: full range of motion of the hip, full range of motion of the knee LYMPH NODES: no axillary, supracl avicular or inguinal adenopathy PSYCH: alert, oriented, goo d eye contact
--- OUTSIDE RECORDS SUMMARY | 2025-01-02 09:45 | XMS_ITS | Encounter Summary ---
Author Organization [facility] Address [address] [place] [address] Care Team Providers Care Soft Work Cigar Machine Operator Name Role Phone Sarah Montejo NP Primary Care Provider [phone] Encounter Details Date Type Department Care Team ([facility] st Contact Info) Description 12/29/2024 Telephone Gastroenterology - [address] [place] [phone] Sayda Smith, HOUSEKEEPING ASSISTANT [address] [place] [address] Social History Tobacco Use Types Packs/Day Years Used Date Smoking Tobacco: Never Assessed Comments Unknown Sex and Gender Information Value Date Recorded Sex Assigned at Not on file Legal Sex Female 10:42 PM EST Gender Identity Not on file Sexual Orientation Not on file documented as of this encounter Progress Notes * Kenia Alvarado MA - 12/29/2024 10:58 AM EDT Spoke to patient and explained to her that it was completely normal. Her body is just trying to clear out since she was extremely constipated. * Salena Villa - 12/29/2024 10:34 AM EDT PT CALLED STATING THAT AFTER DRINKING THE GOLYTLY SHE NEVER GOT ANY HARD STOOL OUT, IT WAS MOSTLY LIQUID. PT STATES SOMETHING RESEMBLING A FLESH COLORED TISSUE. PT ALSO SAID IT REMINDED HER OF RAW CHICKEN. THEY WERE THE SIZE OF A PINKY FINGER-NAIL. SHE IS WONDERING IF THIS IS SOMETHING SHE SHOULD BE WORRIED ABOUT? PT STATES THAT THERE WAS MINIMAL BLOOD. documented in this encounter Plan of Treatment Upcoming Encounters Date Type Department Care Team (Late st Contact Info) Description 02/15/2025 7:[address] [facility] [address] [place] [phone] Suraj Corral MD [address] [facility] [address] [place] [address] documented as of this encounter Visit Diagnoses Not on filedocumented in this encounter Care Teams Soft Work Cigar Machine Operator Relationship Specialty Start Date End Date Sarah Montejo, ONIEL [address] [facility] [address] [place] [address] PCP - General Family Medicine 12/05/24 documented as of this encounter
--- OUTSIDE RECORDS SUMMARY | 2025-01-02 09:45 | XMS_ITS | Encounter Summary ---
Author Organization [facility] Address [address] [place] [address] Care Team Providers Care Programmer Analyst Name Role Phone Sarah Montejo NP Primary Care Provider [phone] Encounter Details Date Type Department Care Team (Latest Contact Info) Description 12/27/2024 12:22 PM EDT - 12/27/2024 11:59 PM EDT Hospital Encounter [facility] Xray [address] [place] [address] Slow transit constipation Discharge Disposition: Home or Self Care Social History Tobacco Use Types Packs/Day Years Used Date Smoking Tobacco: Never Assessed Comments Unknown Sex and Gender Information Value Date Recorded Sex Assigned at Not on file Legal Sex Female 10:42 PM EST Gender Identity Not on file Sexual Orientation Not on file documented as of this encounter Medications at Time of Discharge amphetamine-dextroam phetamine XR (ADDERALL XR) 25 mg 24 hr capsule TAKE 1 CAPSULE BY MOUTH EVERY MORNING NEEDED FOR ADHD 11/30/2024 estradioL (VIVELLE-DOT) 0.025 mg/24 hr APPLY 1 PATCH TO SKIN TWICE PER WEEK 12/05/2024 levomilnacipran (Fetzima) 40 mg 24 hr capsule 1 capsule (40 mg total). levothyroxine (SYNTHROID, LEVOTHROID) 100 mcg tablet 1 tablet in the morning on an empty stomach Orally Once a day for 30 days LORazepam (ATIVAN) 1 mg tablet TAKE 1/2 TO 1 TABLET BY MOUTH EVERY DAY NEEDED FOR ANXIETY naproxen (NAPROSYN) 500 mg tablet TAKE 1 TABLET BY MOUTH EVERY 12 HOURS WITH FOOD OR MILK NEEDED FOR 30 DAYS 11/29/2024 ondansetron ODT (ZOFRAN-ODT) 4 mg disintegrating tablet TAKE 1 TABLET BY MOUTH EVERY 8 HOURS ORAL DAILY 30 DAYS 11/10/2024 progesterone (PROMETRIUM) 200 mg capsule Take 1 capsule (200 mg total) by mouth at bedtime. 12/05/2024 propranoloL (INDERAL) 40 mg tablet Take 1 tablet (40 mg total) by mouth 1 (one) time each day. for 90 days 11/29/2024 documented as of this encounter Discharge Disposition Disposition Code Departure Means Destination Home or Self Care documented in this encounter Plan of Treatment Upcoming Encounters Date Type Department Care Team (Late st Contact Info) Description 02/15/2025 7:30 AM EDT Appointment [facility] Endoscopy [address] [place] [phone] Suraj Corral MD [address] [address] documented as of this encounter Procedures Procedure Name Priority Date/Time Associated Diagnosis Comments XR ABDOMEN 1 VIEW Routine 12/27/2024 12: 40 PM EDT Slow transit constipation documented in this encounter Results * XR Abdomen 1 View (12/27/2024 12:40 PM EDT) Anatomical Region Laterality Modality Body Radiographic Jolly ging 12/27/2024 4:09 PM EDT Impressions 12/27/2024 4:11 PM EDT Impression: Large amount of stool within the colon proximal to the sigmoid level. The differential diagnosis includes constipation and distal large bowel obstruction. Telesima EASLEY ([id number]) -------- FINAL REPORT -------- Dictated By: Angelia Laguerre Dictated Date: 12/27/2024 16:09 ET Assigned Physician: Angelia Laguerre Reviewed and Electronically Signed By: Angelia Laguerre Signed Date: 12/27/2024 16:11 ET Workstation ID: [id number] Transcribed By: Self Edit Transcribed Date: 12/27/2024 16:09 ET Narrative 12/27/2024 4:11 PM EDT History: Left-sided abdominal pain. Question constipation. Findings: AP supine views of the abdomen and pelvis. A large amount of stool is seen within the colon proximal to the rectosigmoid colon. No small bowel dilatation is noted. No solid visceromegaly is apparent. No pathologic calcifications are demonstrated. The regional skeleton is intact. Procedure Note Angelia Laguerre MD - 12/27/2024 History: Left-sided abdominal pain. Question constipation. Findings: AP supine views of the abdomen and pelvis. A large amount of stool is seenwithin the colon proximal to the rectosigmoid colon. No small boweldilatation is noted. No solid visceromegaly is apparent. No pathologic calcifications aredemonstrated. The regional skeleton is intact. IMPRESSION: Impression: Large amount of stool within the colon proximal to the sigmoid level. Thedifferential diagnosis includes constipation and distal large bowelobstruction. Telerad IA ([id number]) -------- FINAL REPORT -------- Dictated By: Angelia Laguerre Dictated Date: 12/27/2024 16:09 ET Assigned Physician: Angelia Laguerre Reviewed and Electronically Signed By: Angelia Laguerre Signed Date: 12/27/2024 16:11 ET Workstation ID: [id number] Transcribed By: Self Edit Transcribed Date: 12/27/2024 16:09 ET Sayda Smith NP IMG XR PROCEDURES Final Resul t documented in this encounter Visit Diagnoses Diagnosis Slow transit constipation documented in this encounter Care Teams Programmer Analyst Relationship Specialty Start Date End Date Sarah Montejo NP [address] [place] [address] PCP - General Family Medicine 12/05/24 documented as of this encounter
--- OUTSIDE RECORDS SUMMARY | 2025-01-02 09:45 | XMS_ITS ---
Author Organization Harry Ashraf MD Address [address] [place] [phone] Care Team Providers Care Videotape Editor Name Role Phone Sarah Montejo Primary Care Provider REASON FOR VISIT DI Order Encounters Encounter Location Date Provider Diagnosis Harry Ashraf MD [address] [phone] 12/25/2024 Sarah Montejo Unspecified lump in the right breast, upper inner quadrant N63.12 Assessments Encounter Date Diagnosis (ICD Code) Assessment Notes Treatment Notes Treatment Clinical Notes Section Notes 12/25/2024 Unspecified lump in the right breast, upper inner quadrant (ICD-10 - N63.12) Plan Of Treatment Pending Test Test Name Order Date Ultrasound : Breast, right 12/25/2024 Mammo: Diagnostic Mammogram Right 2024 Next Appt Details Provider Name:Sarah Montejo , 03/28/2025 02:00:00 PM, [address] [place] [address], [phone], Provider Name:Sarah Montejo , 01/07/2026 01:00:00 PM, [address] [place] [address], [phone], Progress Notes * Sharri SIMMONSDOB: [birth year] (44 yo F)Acc No.[id number]:12/25/2024 Patient:?TROYLilliecy :1980???Age:44 Y???Sex:Female Address:[address] [place] [id number] Subjective: * Chief Complaints: * ???DI Order * Medical History:? * Surgical History:? * Hospitalization/Major Diagno stic Procedure:? * Medications:? Objective: * Vitals:? Past Vitals:* 11/29/2024 Temp:96.8F, HR:84/min, BP:11 8/72mm Hg, Wt:121lbs, BMI:22.86Index, Ht:5 ft 1 in, Oxygen sat %:98% * 06/21/2024 Temp:97.6F, HR:109/min, Ht:5 ft 1 in, Oxygen sat %:98% * 05/24/2024 Temp:96.5F, HR:65/min, Wt:13 1lbs, BMI:24.75Index, Ht:5 ft 1 in, Oxygen sat %:99% * Physical Examination:? Assessment: * Assessment: 1.?Unspecified lump in the r ight breast, upper inner quadrant - N63.12 (Primary)??? Plan: * Treatment: * Procedure Codes:? * true * Date:? Generated for Julio Cesar rowell/Kalia/eTransmitting on:?01/02/2025 09:44 AM EDT
--- OUTSIDE RECORDS SUMMARY | 2025-01-02 09:45 | XMS_ITS | Clinical Summary ---
Author Organization [facility] 299 [facility] Address [address] [place] [address] Phone Care Team Providers Care Oil [employer] Roustabout Name Role Phone Sarah Montejo NP Primary Care Provider [phone] Medications amphetamine-dextro amphetamine XR (ADDERALL XR) 25 mg 24 hr capsule TAKE 1 CAPSULE BY MOUTH EVERY MORNING NEEDED FOR ADHD 12/01/19 25 Active estradioL (VIVELLE-DOT) 0.025 mg/24 hr APPLY 1 PATCH TO SKIN TWICE PER WEEK 12/06/19 25 Active levomilnacipran (Fetzima) 40 mg 24 hr capsule 1 capsule (40 mg total). Active levothyroxine (SYNTHROID, LEVOTHROID) 100 mcg tablet 1 tablet in the morning on an empty stomach Orally Once a day for 30 days Active LORazepam (ATIVAN) 1 mg tablet TAKE 1/2 TO 1 TABLET BY MOUTH EVERY DAY NEEDED FOR ANXIETY Active naproxen (NAPROSYN) 500 mg tablet TAKE 1 TABLET BY MOUTH EVERY 12 HOURS WITH FOOD OR MILK NEEDED FOR 30 DAYS 11/30/19 25 Active ondansetron ODT (ZOFRAN-ODT) 4 mg disintegrating tablet TAKE 1 TABLET BY MOUTH EVERY 8 HOURS ORAL DAILY 30 DAYS 11/10/19 25 Active progesterone (PROMETRIUM) 200 mg capsule Take 1 capsule (200 mg total) by mouth at bedtime. 12/06/19 25 Active propranoloL (INDERAL) 40 mg tablet Take 1 tablet (40 mg total) by mouth 1 (one) time each day. for 90 days 11/30/19 25 Active amoxicillin-clavul anate (AUGMENTIN) 875-125 mg per tablet Take 1 tablet by mouth every 12 (twelve) hours. for 7 days 02/03/20 025 Discontinued clonazePAM (KlonoPIN) 1 mg tablet TAKE 1/2 - 1 TABLET BY MOUTH AT BEDTIME FOR ANXIETY 10/06/19 025 Discontinued gabapentin (NEURONTIN) 100 mg capsule TAKE 1 CAPSULE BY MOUTH UP TO ONCE A DAY NEEDED FOR SHINGLES PAIN FOR 7 DAYS. 06/21/20 025 Discontinued valACYclovir (VALTREX) 1 gram tablet Take 1 tablet (1,000 mg total) by mouth 3 (three) times a day. 06/22/20 025 Discontinued polyethylene glycol (GoLYTELY) 236-22.74-6.74 -5.86 gram solution Take 4,000 mL by mouth 1 (one) time for 1 dose. 4000 mL 12/28/19 025 Encounters Date Type Department Care Team Description 12/29/2024 Telephone Gastroenterology - [address] [phone] Sayda Smith NP 12/28/2024 Telephone Gastroenterology - [address] [place] [phone] Sayda Smith NP 12/28/2024 Telephone Gastroenterology - [address] [phone] Sayda Smith NP 12/27/2024 12:22 PM EDT - 12/27/2024 11:59 PM EDT Hospital Encounter [facility] Xray [address] [place] [phone] Slow transit constipation Discharge Disposition: Home or Self Care 12/27/2024 11:20 AM EDT Consult Gastroenterology - [address] [place] [phone] Sayda Smith, MANDREL PRESS HAND Slow transit constipation (Primary Dx) 12/27/2024 Telephone Gastroenterology - [address] [phone] Sayda Smith NP 12/05/2024 Telephone Gastroenterology - 299 [facility] [address] [phone] Madison Phillips MD Consult from Last 3 Months Social History Tobacco Use Types Packs/Day Years Used Date Smoking Tobacco: Never Assessed Comments Unknown Sex and Gender Information Value Date Recorded Sex Assigned at Not on file Legal Sex Female 10:42 PM EST Gender Identity Not on file Sexual Orientation Not on file Last Filed Vital Signs Vital Sign Reading Time Taken Comments Blood Pressure - - Pulse - - Temperature - - Respiratory Rate - - Oxygen Saturation - - Inhaled Oxygen Concentration - - Weight 55.8 kg (123 lb) 12/27/2024 11:56 AM EDT Height 154.9 cm (5' 1 ) 12/27/2024 11:56 AM EDT Body Mass Index 23.24 12/27/2024 11:56 AM EDT Plan of Treatment Upcoming Encounters Date Type Department Care Team (Late st Contact Info) Description 02/15/2025 7:30 AM EDT Appointment [facility] Endoscopy [address] [place] [phone] Suraj Corral MD [address] [phone] Health Maintenance Due Date Last Done Comments Breast Cancer Screening 1982 Cervical Cancer Screening: Pap Smear 2003 Depression Screening 04/04/2024 HIV Screening 04/04/2024 Hepatitis C Screening 04/04/2024 Social Influencers of Health Screening 04/04/2024 COVID-19 Vaccine ( season) 2024 01/03/2021 Influenza Vaccine (Season Ended) 2025 06/21/2019, 06/29/2018, 06/16/2018, Additional history exists DTaP,Tdap,and Td Vaccines (12 - Td or Tdap) 05/01/2030 05/01/2020, 06/23/2017, 12/15/2016, Additional history exists IPV Vaccines Completed 10/14/1987, 05/15, 05/10/1983, Additional [...] age to complete this topic Meningococcal B Vaccine Aged Out No l onger eligible based on patient's age to complete [...] on patient's age to complete this topic Procedures Procedure Name Priority Date/Time Associated Diagnosis Comments XR ABDOMEN 1 VIEW Routine 12/27/2024 12: 40 PM EDT Slow transit constipation from Last 3 Months Results * XR Abdomen 1 View (12/27/2024 12:40 PM EDT) Anatomical Region Laterality Modality Body Radiographic Jolly ging 12/27/2024 4:09 PM EDT Impressions 12/27/2024 4:11 PM EDT Impression: Large amount of stool within the colon proximal to the sigmoid level. The differential diagnosis includes constipation and distal large bowel obstruction. Telerad TRACEE ([id number]) -------- FINAL REPORT -------- Dictated By: Angelia Laguerre Dictated Date: 12/27/2024 16:09 ET Assigned Physician: Angelia Laguerre Reviewed and Electronically Signed By: Angelia Laguerre Signed Date: 12/27/2024 16:11 ET Workstation ID: [id number] Transcribed By: Self Edit Transcribed Date: 12/27/2024 [...] includes constipation and distal large bowelobstruction. Telerad TRACEE ([id number]) -------- FINAL REPORT -------- Dictated By: Angelia Laguerre Dictated Date: 12/27/2024 16:09 ET Assigned Physician: Angelia Laguerre Reviewed and Electronically Signed By: Angelia Laguerre Signed Date: 12/27/2024 16:11 ET Workstation ID: [id number] Transcribed By: Self Edit Transcribed Date: 12/27/2024 16:09 ET Sayda Smith MANDREL PRESS HAND IMG XR PROCEDURES Final Resul t from Last 3 Months Insurance [facility] Care Teams [employer] Relationship Specialty Start Date End Date Sarah Montejo NP [address] [place] [id number] PCP - General Family Medicine 12/05/24
--- OUTSIDE RECORDS SUMMARY | 2025-01-02 09:45 | XMS_ITS | Encounter Summary ---
Author Organization [facility] Address [address] [place] [address] Care Team Providers Care Setter Automatic Spinning Lathe Name Role Phone Sarah Montejo NP Primary Care Provider [phone] Encounter Details Date Type Department Care Team (Late Contact Info) Description 12/28/2024 Telephone Gastroenterology - 299 [facility] [address] [phone] Sayda Smith NP [address] [address] Social History Tobacco Use Types Packs/Day Years Used Date Smoking Tobacco: Never Assessed Comments Unknown Sex and Gender Information Value Date Recorded Sex Assigned at Not on file Legal Sex Female 10:42 PM EST Gender Identity Not on file Sexual Orientation Not on file documented as of this encounter Progress Notes * Sayda Smith NP - 12/28/2024 11:45 AM EDT Spoke to patient. Reviewed KUB. She did Fleets today and is starting her gallon prep to clean out. Once done she will start Miralax daily. She to call me in 2 weeks to check in. Sooner if needs assistance. documented in this encounter Plan of Treatment Upcoming Encounters Date Type Department Care Team (Late st Contact Info) Description 02/15/2025 7:30 AM EDT Appointment [facility] Endoscopy [address] [place] [phone] Suraj Corral MD 299 [facility] [address] [place] [address] documented as of this encounter Visit Diagnoses Not on filedocumented in this encounter Care Teams Setter Automatic Spinning Lathe Relationship Specialty Start Date End Date Sarah Montejo SENIOR ESTIMATOR [address] [facility] [address] [place] [address] PCP - General Family Medicine 12/05/24 documented as of this encounter
--- OUTSIDE RECORDS SUMMARY | 2025-01-02 09:45 | XMS_ITS | Patient Health Record ---
Author Organization [facility] Address [address] [place] [id number] Support Name Relationship Address Phone Sharri Simmons Guarantor Unknown Unavailabl e REASON FOR REFERRAL No Information PLAN OF TREATMENT No Information Insurance Providers Payer Name Payer Address Payer Phone Subscriber Number Group Number Insured Name Patient Relationship to Insured Coverage Start Date Coverage End Date ANIRUDH PEDROZA [address] [place] [address] [id number] Sharri Sandra Self - patient is the insured
--- OUTSIDE RECORDS SUMMARY | 2025-01-02 09:45 | XMS_ITS | Patient Health Record ---
Author Organization Harry Ashraf MD Address [address] [place] [phone] Care Team Providers Care Powder Hand Name Role Phone MontejoGinoSarah Primary Care Provider Allergies No Known Allergies Results Component Value Reference Range Notes CBC With Differential/Platel et-949738 (Not yet reviewed by provider) Interpretation: Performing Lab:[facility], [address] [place] [address], [place], Phone - [phone], Director - Celina Notes/Report: Test(s) 938415-f-[id number] was developed and its performance characteristics determined by [employer]. It has not been cleared or approved [...] % Immature Grans (Abs) 0.0 0.0-0.1 x10E3/uL Vitamin D, 04-Safkfmo-630788 (Not yet reviewed by provider) Interpretation: Performing Lab:[facility], [address] [place] [address], Phone - [phone], Director - [facility] Notes/Report: Test(s) 175175-m-[id number] was developed and its performance characteristics determined by [facility]. It has not been cleared or approved by the Food and Drug Administration. Vitamin D, 25-Hydroxy 25.5 30.0-100.0 ng/mL Vitamin D deficiency has been defined by the [place] [employer] and an Endocrine Society practice guideline as a level of serum 25-OH vitamin D less than 20 ng/mL (1,2). The Endocrine Society went on to further define vitamin D insufficiency as a level between 21 and 29 ng/mL (2). 1. IOM ([place] [employer]). 2010. Dietary reference intakes for calcium and D. [place]: The National Academies Press. 2. Sanjeev MF, Sanjiv NC, Xavier LESLIE, et al. Evaluation, treatment, and prevention of vitamin D deficiency: an Endocrine Society clinical practice guideline. JCEM. 2010; 96(7):1911-30. GI Profile, Stool, PCR-25341 0 Reviewed date:12/31/2024 12:00:06 PM Interpretation: Performing Lab:[facility], [address] [place] [address], [place], Phone - [phone], [facility] Notes/Report: Campylobacter Not Detected Not Detected C difficile toxin A/B Not Detected Not Detected Plesiomonas shigelloides Not Detected Not Detected Salmonella Not Detected Not Detected Vibrio Not Detected Not Detected Vibrio cholerae Not Detected Not Detected Yersinia enterocolitica Not Detected Not Detected Enteroaggregative E coli Not Detected Not Detected Enteropathogenic E coli Not Detected Not Detected Enterotoxigenic E coli Not Detected Not Detected Gnrvb-bdwgt-ktxtchhxt E coli Not Detected Not Detected E coli O157 Not applicable Not Detected Shigella/Enteroinvasive E coli Not Detected Not Detected Cryptosporidium Not Detected Not Detected Cyclospora cayetanensis Not Detected Not Detected Entamoeba histolytica Not Detected Not Detected Giardia lamblia Not Detected Not Detected Adenovirus F 40/41 Not Detected Not Detected Astrovirus Not Detected Not Detected Norovirus GI/GII Not Detected Not Detected Rotavirus A Not Detected Not Detected Sapovirus Not Detected Not Detected TSH reflex to [id number]-[id number] (No t yet reviewed by provider) Interpretation: Performing Lab:[facility], [address] [place] [address], [place], Phone - [phone], Director [facility] Notes/Report: Test(s) 407225-[id number] was developed and its performance characteristics determined by [employer]. It has not been cleared or approved by the Food and Drug Administration. TSH 1.880 0.450-4.500 uIU/mL Urinalysis, Complete-180038 (Not yet reviewed by provider) Interpretation: Performing Lab:[address], Phone - [phone], [facility] Notes/Report: Test(s) 845372-f-hke642 was developed and its performance characteristics determined by [employer]. It has not been cleared or approved by the Food and Drug Administration. Test(s) 748011-u-dlr693 was developed and its performance characteristics determined by [facility]. It has not been cleared or approved by the Food and Drug Administration. Specific [place] 1.017 1.005-1.030 pH 6.0 5.0-7.5 Urine-Color Yellow [...] None seen /lpf Bacteria Few None seen/Few Measles/Mumps/Rubella Immuni ty-090056 (Not yet reviewed by provider) Interpretation: Performing Lab:[address], [place], Phone - [phone], [facility] Notes/Report: Test(s) 846957-k-rnt095 was developed and its performance characteristics determined by [facility]. It has not been cleared or approved by the Food and Drug Administration. Rubella Antibodies, IgG 2.07 Immune > 0.99 index Non-immune <0.90 Equivocal 0.90 - 0.99 Immune >0.99 Measles Antibodies, IgG 36.0 Immune > 16.4 AU/mL Negative <13.5 Equivocal 13.5 - 16.4 Positive >16.4 Presence of antibodies to Rubeola is presumptive evidence of immunity except when acute infection is suspected. Mumps Abs, IgG 58.1 Immune >10.9 AU/mL Negative <9.0 Equivocal 9.0 - 10.9 Positive >10.9 A positive result generally indicates past exposure to Mumps virus or previous vaccination. HCV Antibody RFX to Quant PC R-[id number] (Not yet reviewed by provider) Interpretation: Performing Lab:[facility], [address] [facility], [place], Phone - [phone], Director - [facility] Notes/Report: Test(s) 463313-j-[id number] was developed and its performance characteristics determined by [facility]. It has not been cleared or approved by the Food and Drug Administration. Test(s) 657201-f-jhv855 was developed and its performance characteristics determined by [facility]. It has not been cleared or approved by the Food and Drug Administration. HCV Ab Non Reactive Non Reactive Interpretation: Not infected with HCV unless early or acute infection is suspected (which may be delayed in an immunocompromised individual), or other evidence exists to indicate HCV infection. Comp. Metabolic Panel [phone] (Not yet reviewed by provider) Interpretation: Performing Lab:[facility], [address] [facility], [place], Phone - [phone], Director - [facility] Notes/Report: Test(s) 048234-c-fdw660 was developed and its performance characteristics determined [...] IU/L ALT (SGPT) 12 0-32 IU/L LP+Non-HDL Cholesterol-02071 5 (Not yet reviewed by provider) Interpretation: Performing Lab:[facility] [place], [address] [facility], [place], Phone - [phone], Director - [facility] Notes/Report: Test(s) 620124-z-lth215 was developed and its performance characteristics determined by [employer]. It has not been cleared or approved by the Food and Drug Administration. Cholesterol, Total 213 100-199 mg/dL Triglycerides 126 0-149 mg/dL HDL Cholesterol 52 >39 mg/dL VLDL Cholesterol Eric 23 5-40 mg/dL LDL Chol Calc ([facility]) 138 0-99 mg/dL Non-HDL Cholesterol 161 0-129 mg/dL Phosphorylated Tau 217 (pTau -217) (Not yet reviewed by provider) Interpretation: Performing Lab:[facility] [place], [address], [place], Phone - [phone], Director - [facility] Notes/Report: Test(s) 615977-z-dyh708 was developed and its performance characteristics determined by [employer]. It has not been cleared or approved by the Food and Drug Administration. p-tyb397 0.12 0.00-0.18 pg/mL Clinical cutoff value was established using samples from a patient cohort characterized with amyloid PET data. A p-qqa796 value of >0.18 is a reported surrogate marker for beta amyloid pathology, and can be used to facilitate biological identification of Alzheimer's disease (1). p-zga868 has also been used in clinical trials to monitor patients on anti-amyloid therapy (2,3). Test performed by [employer] chemiluminescent enzyme immunoassay (CLEIA). Values obtained with different methods cannot be used interchangeably. The validated limit of quantification is 0.06 pg/mL. Assay detection limit is 0.03 pg/mL. Footnotes 1. Manpreet Pond et al. Diagnostic Accuracy of a Plasma Phosphorylated Tau 217 Immunoassay for Alzheimer Disease Pathology. [employer] [facility] (2023). 2. Manrpeet Pond et al. Differential roles of A42/40, p-tma992 and p-qtn333 for Alzheimer's trial selection and disease monitoring. Nature medicine 28.12 (2021): 9580-3180. 3. lForencia SINHA, Caroline M, Irma SC, et al. Association of Donanemab Treatment With Exploratory Plasma Biomarkers in Early Symptomatic Alzheimer Disease: A Secondary Analysis of the TRAILBLAZER-ALZ Randomized Clinical Trial . [facility] Neurol. 2021;79(12):7116-3532. Testosterone-239391 Reviewed date:12/05/2024 04:25:57 PM Interpretation: Performing Lab:[facility], [address] [place] [address], Phone - [phone], Director - Cel[place] Notes/Report: Testosterone 11 4-50 ng/dL Luteinizing Hormone(LH)-0042 83 Reviewed date:12/05/2024 04:25:57 PM Interpretation: Performing Lab:[facility], [address] [place] [address], [place], Phone - [phone], Director - Cel[facility] Notes/Report: LH 28.1 Adult Female Range Follicular phase 2.4 - 12.6 Ovulation phase 14.0 - 95.6 Luteal phase 1.0 - 11.4 Postmenopausal 7.7 - 58.5 FSH-206122 Reviewed date:12/05/2024 04:25:57 PM Interpretation: Performing Lab:[facility], [address] [place] [address], [place], Phone - [phone], Director - [facility] Notes/Report: FSH 62.9 Adult Female Range Follicular phase 3.5 - 12.5 Ovulation phase 4.7 - 21.5 Luteal phase 1.7 - 7.7 Postmenopausal 25.8 - 134.8 Prolactin-831150 Reviewed date:12/05/2024 04:25:57 PM Interpretation: Performing Lab:[facility] [address] [facility], Phone - [phone], Director - [facility] Notes/Report: Prolactin 13.6 4.8-33.4 ng/mL Estrogens, Total-327244 Reviewed date:12/05/2024 04:25:57 PM Interpretation: Performing Lab:[facility] [place], [address] [facility], Phone - [phone], Director - Celina Notes/Report: Estrogens, Total 85 Prepubertal < 40 Female Cycle: 1-10 Days 16 - 328 11-20 Days 34 - 501 21-30 Days 48 - 350 Post-Menopausal 40 - 244 CBC With Differential/Platel et-548442 Reviewed date:12/05/2024 04:25:57 PM Interpretation: Performing Lab:[facility] [place], [address] [facility], Phone - [phone], Director - Cel[place] Notes/Report: WBC 7.1 3.4-10.8 [...] 0.0 0.0-0.1 x10E3/uL Comp. Metabolic Panel (14)-3 Reviewed date:12/05/2024 04:25:57 PM Interpretation: Performing Lab:[facility] [place], [address] [facility], [place], Phone - [phone], Director - Celina Notes/Report: Glucose 94 70-99 [...] (SGPT) 12 0-32 IU/L TSH reflex to [id number] Reviewed date:12/05/2024 04:25:57 PM Interpretation: Performing Lab:[facility], [address] [place] [address], [place], Phone - [phone], Director - Celina Notes/Report: TSH 1.180 0.450-4.500 uIU/mL XR ABDOMEN 1 VIEW Reviewed date:12/28/2024 01:08:44 PM Interpretation: Performing Lab: Notes/Report: See Note [facility], a member of [employer] History: Left-sided abdominal pain. Question constipation. Findings: AP supine views of the abdomen and pelvis. A large amount of stool is seen within the colon proximal to the rectosigmoid colon. No small bowel dilatation is noted. No solid visceromegaly is apparent. No pathologic calcifications are demonstrated. The regional skeleton is intact. IMPRESSION: Impression: Large amount of stool within the colon proximal to the sigmoid level. The differential diagnosis includes constipation and distal large bowel obstruction. Telerad TRACEE ([id number]) -------- FINAL REPORT -------- Dictated By: Angelia Laguerre Dictated Date: 12/27/2024 16:09 ET Assigned Physician: Angelia Laguerre Reviewed and Electronically Signed By: Angelia Laguerre Signed Date: 12/27/2024 16:11 ET Workstation ID: [id number] Transcribed By: Self Edit Transcribed Date: 12/27/2024 16:09 ET See Note History: Left-sided abdominal pain. Question constipation. Findings: AP supine views of the abdomen and pelvis. A large amount of stool is seen within the colon proximal to the rectosigmoid colon. No small bowel dilatation is noted. No solid visceromegaly is apparent. No pathologic calcifications are demonstrated. The regional skeleton is intact. IMPRESSION: Impression: Large amount of stoo l within the colon proximal to the sigmoid level. The differential diagnosis includes constipation and distal large bowel obstruction. Telerad PA ([id number]) -------- FINAL REPOR T -------- Dictated By: Angelia Laguerre Dictated Date: 12/27/2024 16:09 ET Assigned Physician: Angelia Laguerre Reviewed and Electronically Signed By: Angelia Laguerre Signed Date: 12/27/2024 16:11 ET Workstation ID: [id number] Transcribed By: Self Edit Transcribed Date: 12/27/2024 16:09 ET Reason For Referral Reason colonoscopy needs ea [...] SALCIDO 12/06/2024 08:30:56 AM >Appt confirmation fax, Booked chyna Smith 12/27/24 @ 1140am Referral Priority Routine Referral Appointment Date 12/27/2024 Medications Medication SIG (Take, Route, Frequency, Duration) Notes Start Date End Date Status Ondansetron 4 MG TAKE 1 TABLET BY BEN TH EVERY 8 HOURS Oral daily for 30 days Active Levothyroxine Sodium 100 MCG 1 tablet in the morning on an empty stomach Orally Once a day for 90 days Active Adderall XR 25 MG 1 capsule in the mor karoline Orally Once a day Active Adderall 5 MG 1 tablet at 2pm Oral ly once Active Progesterone 200 MG 1 capsule at [...] every 12 hrs for 30 days Active Immunizations Vaccine Route Administration Date Status Comme nts Td (adult), absorbed Unknown 10/24/1997 Administered OPV Unknown 01/07/1983 Administered OPV Unknown 03/10/1983 Administered OPV Unknown 05/10/1983 Administered OPV Unknown 06/08/1984 Administered OPV Unknown 10/14/1987 Administered MMR Unknown 02/03/1984 Administered MMR Unknown 01/04/1996 Administered Meningococcal MPSV4 Unknown 02/20/2003 Administered Influenza-Afluria (IIV4) Unknown 06/29/2018 Administere d Hep B, adolescent or pediatr ic (11-19), 3 dose schedule Unknown 09/29/1995 Administered Hep B, adolescent or pediatr ic (11-19), 3 dose schedule Unknown 01/19/1996 Administered DTP Unknown 01/07/1983 Administered DTP Unknown 03/10/1983 Administered DTP Unknown 05/10/1983 Administered DTP Unknown 06/08/1984 Administered DTP Unknown 10/14/1987 Administered PPTZB-39-Ehlkxlk Vaccine Unknown 01/03/2021 Administere d *Tdap Unknown 12/15/2016 Administered *Tdap Unknown 06/23/2017 Administered *Tdap Unknown 05/01/2020 Administered Social History Tobacco Use: Social History [...] Notes Problem 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 (E28.8) Active confirmed Problem Vitamin D deficiency (23185877) Vitamin D deficiency, unspecified (E55.9) Active confirmed Problem Mixed hyperlipidemia (196634649) Mixed hyperlipidemia (E78.2) Active confirmed Problem Postoperative Hypothyroidism (58187132) Postprocedural hypothyroidism (E89.0) Active confirmed Problem Mild major depression, single episode (36017740) Major depressive disorder, single episode, mild (F32.0) Active confirmed Problem Generalized anxiety disorder (48924987) Generalized anxiety disorder (F41.1) Active confirmed Problem Attention deficit hyperactivity disorder, combined type (30340224) Attention-deficit hyperactivity disorder, combined type (F90.2) Active confirmed Problem Ophthalmoplegic migraine, 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 Problem Episodic tension-type headache (706524682) Episodic tension-type headache, not intractable (G44.219) Active confirmed Problem Vestibular disorder (38736122) Other disorders of vestibular function, 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) Active confirmed Problem Allergic rhinitis caused by pollen (disorder) (69992377) Allergic rhinitis due to pollen (J30.1) Active confirmed Problem Recurrent oral aphthae (412208044) 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) Active confirmed Problem Intermenstrual bleeding - irregular (25421608) Excessive and frequent menstruation with irregular cycle (N92.1) Active confirmed Problem Menopause (776760404) Menopausal and female climacteric states (N95.1) Active confirmed Problem Paresthesia (finding) (69039054) Paresthesia of skin (R20.2) Active confirmed Problem Abnormal gait (52845203) Unsteadiness on feet (R26.81) Active confirmed Problem Acquired absence (32921648) 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) Active confirmed Problem Chronic idiopathic constipation (27815727) Chronic idiopathic constipation (K59.04) Active confirmed Vital Signs Heart Rate 62 /min 12/28/2024 Temperature 96.0 degrees Fahrenheit 12/28/2024 Blood pressure diastolic 66 mm Hg 12/28/2024 Oximetry 99 % 12/28/2024 Height 5 ft 1 in in 12/28/2024 Blood pressure systolic 112 mm Hg 12/28/2024 Weight 123 lbs 12/28/2024 BMI 23.24 kg/m2 12/28/2024 Encounters Encounter Location Date Provider Diagnosis Harry Ashraf MD [address] [id number] 12/28/2024 Sarah Montejo Encounter for genera l adult medical examination [...] screening for malignant neoplasm of cervix Z12.4 Harry Ashraf MD [address] [id number] 02/03/2024 Sarah Montejo Acute maxillary sinusitis, unspecified J01.00 Harry Ashraf MD [address] [id number] 03/01/2024 Sarah Ashraf MD [address] [id number] 05/24/2024 Sarah [place] Other disorders of vestibular function, bilateral H81.8X3 ; Dizziness and giddiness R42 ; Generalized anxiety disorder F41.1 ; Major depressive disorder, single episode, mild F32.0 ; Other specified diseases of inner ear, bilateral H83.8X3 ; Postprocedural hypothyroidism E89.0 ; Mixed hyperlipidemia E78.2 and Vitamin D deficiency, unspecified E55.9 Harry Ashraf MD [address] [id number] 06/21/2024 Sarah [place] Zoster with other complications B02.8 and Recurrent oral aphthae K12.0 Harry Ashraf MD [address] [id number] 07/19/2024 Sarah [place] Harry Ashraf MD [address] [id number] 07/19/2024 Sarahmanuel Sweeneye Generalized anxiety disorder F41.1 ; Major depressive disorder, single episode, mild F32.0 and Ophthalmoplegic migraine, not intractable G43.B0 Harry Ashraf MD [address] [id number] 11/29/2024 Sarah Sweeneye Family history of malignant neoplasm of digestive organs Z80.0 ; Chronic idiopathic constipation K59.04 ; Episodic tension-type headache, not intractable G44.219 ; Menopausal and female climacteric states N95.1 and Postprocedural hypothyroidism E89.0 Harry Ashraf MD [address] [id number] 01/05/2024 Sarah Ashraf MD [address] [id number] 01/25/2024 Sarah Ashraf MD [address] [id number] 02/02/2024 Sarah Ashraf MD [address] [id number] 03/21/2024 Sarah Ashraf MD [address] [id number] 07/04/2024 Sarah Ashraf MD [address] [id number] 2024 Sarah Ashraf MD [address] [id number] 11/10/2024 Sarah [place] Nausea R11.0 Harry Ashraf MD [address] [id number] 12/05/2024 Sarah Montejo Menopausal and femal e climacteric states N95.1 Harry Ashraf MD [address] [id number] 12/25/2024 Sarah Nikia Unspecified lump in the right breast, upper inner quadrant N63.12 Harry Ashraf MD [address] [id number] 02/03/2024 Sarah Ashraf MD [address] [id number] 02/03/2024 Sarahmanuel Ashraf MD [address] [id number] 09/08/2024 Sarah Ashraf MD [address] [id number] 11/07/2024 Sarah Ashraf MD [address] [id number] 11/07/2024 Sarah Ashraf MD [address] [id number] 12/01/2024 Sarah Ashraf MD [address] [id number] 12/01/2024 Sarah Montejo Assessments Encounter Date Diagnosis (ICD Code) Assessment Notes Treatment Notes Treatment Clinical Notes Section Notes 02/03/2024 Acute maxillary sinusitis, unspecified (ICD-10 - [...] that are not resolved with these treatments 06/21/2024 Zoster with other complications (ICD-10 - [...] mouth as she would need to evaluated 07/19/2024 Major depressive disorder, single episode, mild [...] assist in the stressors surrounding her marriage 05/24/2024 Other disorders of vestibular function, bilateral (ICD-10 - H81.8X3) Patient has a follow-up with [facility] neuro high pressure operator in June to review extensive testing which she completed in the summer. Patient states there was mention that her symptoms may related to vestibular migraines and encouraged patient to begin vestibular rehab to see if this can help manage some of her symptoms. Provided patient with PT order for vestibular rehab and discussed locations such as [facility] in [place]. 11/10/2024 Nausea (ICD-10 - R11.0) 11/29/2024 Family history of malignant neoplasm of [...] process to have sits marker testing completed. 12/05/2024 Menopausal and female climacteric states (ICD-10 - N95.1) 12/25/2024 Unspecified lump in the right breast, upper inner quadrant (ICD-10 - N63.12) 12/28/2024 Menopausal and female climacteric states (ICD-10 [...] irregularity. Patient agreeable with this plan 12/28/2024 Encounter for general adult medical examination without abnormal findings (ICD-10 - Z00.00) General healthcare up-to-date. Will obtain updated routine labs.Plan will be for annual in 1 year 11/29/2024 Episodic tension-type headache, not intractable (ICD-10 [...] modalities health helped improve her headache symptoms 12/28/2024 Postprocedural hypothyroidism (ICD-10 - E89.0) patient's TSH levels have been within normal range. Will obtain an updated TSH level at this time 07/19/2024 Ophthalmoplegic migraine, not intractable (ICD-10 - G43.B0) Discussed with patient her symptoms of intermittent headaches with left eye twitching suspect that this may be related to ocular/retinal migraines. Encouraged patient to contact [facility] eye care in [place] to schedule an eye appointment and to [...] - R42) Patient was recently evaluated at [facility] given MRI findings that [...] as considering pt's continued symptoms of concern 12/28/2024 Episodic tension-type headache, not intractable (ICD-10 [...] as unexplained weight loss and bowel changes 05/24/2024 Major depressive disorder, single episode, mild (ICD-10 - F32.0) Stable and pt to follow up with mental health prescriber as scheduled 11/29/2024 Postprocedural hypothyroidism (ICD-10 - E89.0) Discussed [...] cause for some of her symptoms. 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 Patient is seeing the neuro high pressure operator in June to review testing results which she completed in the summer 12/28/2024 Chronic idiopathic constipation (ICD-10 - K59.04) [...] given her high FSH and LH levels 05/24/2024 Postprocedural hypothyroidism (ICD-10 - E89.0) Stable TSH level with previous labs. Will obtain an update TSH level to ensure stable level 05/24/2024 Mixed hyperlipidemia (ICD-10 - E78.2) Patient did have findings of elevated lipid levels with previous lab draws. 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 to complete her pap smear to ensure she is up to date with cervical cancer screenings 12/28/2024 Other Plan Of Treatment Pending Test Test Name Order Date Ultrasound : Breast, right 12/25/2024 Ultrasound : Legs, bilateral 01/13/2023 MRI : [...] TESTOSTERONE 01/13/2023 TSH WITH REFLEX TO FT4 07/15/2023 TSH WITH REFLEX TO FT4 01/13/2023 VITAMIN B12 01/13/2023 VITAMIN B12 07/15/2023 US Soft Tissue 01/19/2023 Mammo: Diagnostic Mammogram Right 2024 ANION GAP 01/13/2023 CO2 01/13/2023 US Pelvic Transvaginal 12/28/2024 MR Pituitary 12/28/2024 Iron and TIBC-448161 05/24/2024 Vitamin Q56-315317 05/24/2024 Urinalysis, Complete-087778 12/28/2024 Ferritin-207436 05/24/2024 CBC With Differential/Platelet-903317 CBC With Differential/Platelet-896092 CBC With Differential/Platelet-714226 Measles/Mumps/Rubella Immunity-029801 Measles/Mumps/Rubella Immunity-[id number] Vitamin D, 46-Wszifwd-[id number] 11/29/2023 Vitamin D, 29-Cssnjyu-796456 05/24/2024 Vitamin D, 15-Wfywgja-915380 12/28/2024 HCV Antibody RFX to Quant [id number] HCV Antibody RFX to Quant [id number] GI Profile, Stool, [id number] 11/29/2024 Comp. Metabolic Panel [id number] 2023 Comp. Metabolic Panel [id number] 2023 Comp. Metabolic Panel [id number] 2024 LP+Non-HDL Cholesterol-[id number] 12/28/2024 LP+Non-HDL Cholesterol-[id number] 11/29/2023 LP+Non-HDL Cholesterol-[id number] 05/24/2024 UA/M w/rflx Culture, Routine-[id number] 11/11 TSH reflex to [id number] 11/29/2023 TSH reflex to [id number]-[id number] 05/24/2024 TSH reflex to [id number] 12/28/2024 Phosphorylated Tau 217 (pTau-217) 2024 Next Appt Details Provider Name:Sarah Montejo , 03/28/2025 02:00:00 PM, [address] [place] [address], [phone], Provider Name:Sarah Montejo , 01/07/2026 01:00:00 PM, [address] [place] [address], [phone], Insurance Providers Payer Name Payer Address Payer Phone Subscriber Number Group Number Insured Name Patient Relationship to Insured Coverage Start Date Coverage End Date [address] [place] [address] [id number] Sharri Amos Self - patient is the insured [facility] [address] [place] [address] [phone] [id number] Sharri Amos Self - patient is the insured Medical (General) History Medical History History ICD Code Anxiety Depression ADHD Partial Thyroidectomy (right side) Surgical History Surgery Date(Month/Year) lipoma removal 10/06 cystoscopy 07/2023 carpal tunnel syndrome 10/2023 Hospitalization History Reason Date(Month/Year)
--- OUTSIDE RECORDS SUMMARY | 2025-01-02 09:45 | XMS_ITS | Encounter Summary ---
Author Organization [facility] Address [address] [place] [address] Care Team Providers Care Supervisor Floor Assembly Name Role Phone Sarah Montejo NP Primary Care Provider [phone] Encounter Details Date Type Department Care Team (Late Contact Info) Description 12/28/2024 Telephone Gastroenterology - [address] [place] [phone] Sayda Smith NP [address] [place] [address] Social History Tobacco Use Types Packs/Day Years Used Date Smoking Tobacco: Never Assessed Comments Unknown Sex and Gender Information Value Date Recorded Sex Assigned at Not on file Legal Sex Female 10:42 PM EST Gender Identity Not on file Sexual Orientation Not on file documented as of this encounter Progress Notes * Leonie Barrera - 12/28/2024 8:53 AM EDT PT IS CALLING BACK * Sayda Smith NP - 12/28/2024 7:41 AM EDT Tried to call pt again RE: KUB result. 2nd message left. Please call to discuss. documented in this encounter Plan of Treatment Upcoming Encounters Date Type Department Care Team (Late Contact Info) Description 02/15/2025 7:30 AM EDT Appointment [facility] Endoscopy [address] [place] [phone] Suraj Corral MD 299 [facility] [address] [place] [address] documented as of this encounter Visit Diagnoses Not on filedocumented in this encounter Care Teams Supervisor Floor Assembly Relationship Specialty Start Date End Date Sarah Montejo NP 50 [facility] [address] [place] [address] PCP - General Family Medicine 12/05/24 documented as of this encounter
== END 2025-01-02 10:05 | disposition home or self-care (01) ==
PROVIDERS: PCP Nurse Practitioner Family; Visit Provider Advanced Practice Midwife
DX: Z01.419 Encounter for gynecological examination (general) (routine) without abnormal findings (principal)
CPT/HCPCS: 99396; 99459

== ENCOUNTER → 2025-01-02 09:08 | Outpatient (BNVA) | payer OTHER, SELFPAY | PROVIDERS: PCP Nurse Practitioner Family; Visit Provider Advanced Practice Midwife | DX: Z13.89 Encounter for screening for other disorder (principal) ==

== ENCOUNTER → 2025-01-17 12:00 | Outpatient (BNV) | payer OTHER, SELFPAY | PROVIDERS: PCP Nurse Practitioner Family; Visit Provider Internal Medicine | DX: N64.89 Other specified disorders of breast (principal) | CPT/HCPCS: 76642; 77061; 77065 ==

== ENCOUNTER 2025-01-17 12:04 | Outpatient (REF) | payer OTHER, SELFPAY ==
--- NOTE | ~2025-01-17 | US_ITS ---
EXAMINATION: MM DIAGNOSTIC DIGITAL BREAST TOMOSYNTHESIS, RIGHT CLINICAL INFORMATION: Call back from screening for asymmetry in the right breast on CC view. COMPARISON: Mammography: [facility] on PACS. TECHNIQUE: Digital breast tomosynthesis is performed in both the craniocaudal and mediolateral oblique views along with computer-aided detection (CAD). Synthesized 2D images are generated from the tomosynthesis. FINDINGS: The breasts are heterogeneously dense, which may obscure small masses (ACR BI-RADS breast composition Category c). Circumscribed oval mass persists in the lateral right breast anterior depth on CC view. No suspicious calcifications or other abnormal findings. Targeted color Doppler ultrasound demonstrates a minimally complicated cyst with a thin intervening septation and 9:00 2 cm from nipple measuring 10 x 8 x 12 mm which correlates with the circumscribed oval mass. There are adjacent simple to minimally complicated subcentimeter cysts which are benign. US/US breast RT limited mamm only IMPRESSION: Minimally complicated cyst on ultrasound. Benign. ASSESSMENT: BI-RADS BI-RADS 2 - Benign Findings RECOMMENDATION: 1 year F/U Results were provided to the patient at time of visit by the technologist. This patient's information was entered into a reminder system with a target due date for their next mammogram. Electronically signed by: Kellie Ardon DO 01/17/2025 12:55 PM EDT
--- OUTSIDE RECORDS SUMMARY | 2025-01-17 13:21 | XMS_ITS | Clinical Summary ---
Author Organization [facility] 299 [facility] Address [address] [place] [address] Phone Care Team Providers Care Dry Dip Worker Name Role Phone Sarah Montejo NP Primary Care Provider [phone] Medications amphetamine-dextro amphetamine XR (ADDERALL XR) 25 [...] Team Description 12/29/2024 Telephone Gastroenterology - [address] [phone] Sayda Smith NP 12/28/2024 Telephone Gastroenterology - [address] [place] [phone] Sayda Smith NP 12/28/2024 Telephone Gastroenterology - [address] [phone] Sayda Smith NP 12/27/2024 12:22 PM EDT - 12/27/2024 11:59 PM EDT Hospital Encounter [facility] Xray [address] [place] [phone] Slow transit constipation Discharge Disposition: Home or Self Care 12/27/2024 11:20 AM EDT Consult Gastroenterology - [address] [place] [phone] Sayda Smith, COREMAKING SUPERVISOR Slow transit constipation (Primary Dx) 12/27/2024 Telephone Gastroenterology - [address] [phone] Sayda Smith NP 12/05/2024 Telephone Gastroenterology - 299 [facility] [address] [phone] Madison Phillips MD Consult from Last 3 [...] Info) Description 02/15/2025 7:30 AM EDT Appointment [facility] Endoscopy [address] [place] [phone] Suraj Corral MD [address] [address] Health Maintenance Due Date Last Done Comments [...] and distal large bowel obstruction. Telerad TRACEE ([id number]) -------- FINAL REPORT -------- Dictated By: Angelia Laguerre Dictated Date: 12/27/2024 16:09 ET Assigned Physician: Angelia Laguerre Reviewed and Electronically Signed By: Angelia Laguerre Signed Date: 12/27/2024 16:11 ET Workstation ID: [id number] Transcribed By: Self Edit Transcribed Date: 12/27/2024 [...] constipation and distal large bowelobstruction. Telerad TRACEE ([id number]) -------- FINAL REPORT -------- Dictated By: Angelia Laguerre Dictated Date: 12/27/2024 16:09 ET Assigned Physician: Angelia Laguerre Reviewed and Electronically Signed By: Angelia Laguerre Signed Date: 12/27/2024 16:11 ET Workstation ID: [id number] Transcribed By: Self Edit Transcribed Date: 12/27/2024 16:09 ET Sayda Smith COREMAKING SUPERVISOR IMG XR PROCEDURES Final Resul t from Last 3 Months Insurance [facility] Care Teams Dry Dip Worker Relationship Specialty Start Date End Date Sarah Montejo NP [address] [place] [id number] PCP - General Family Medicine 12/05/24
--- OUTSIDE RECORDS SUMMARY | 2025-01-17 13:21 | XMS_ITS | Clinical Summary ---
Author Organization [facility] Address [address] [place] [address] Care Team Providers Care Head Of Ethics And Compliance Name Role Phone Community, Pcp Primary Care Provider Unavailabl e Allergies No known active allergies Medications Medication Sig Dispensed Refills Start Date End Date Status Vit-DSS-Fe Cbn-FA ( AD OR) Take by mouth. 0 Active Active Problems Problem Noted Date MARIANA II (cervical intraepithelial neoplas ia II) 06/07/2008 Estimated Date of Delivery Comme nts Yes 08/06/2017 Immunizations Name Administration Dates Next Due DTP 10/14/1987, 4,05/10/1983,03/10,01/07/1983 Hepatitis B-3 Dose (<19yrs) 01/19/1996, 6,08/25/1995 MMR (Nncbaqt-Jefkv-Logvwno) 01/04/1996, 4 Meningococcal (MENOMUNE) 02/20/2003 PPD-RBMG 01/16/2015, 7,04/16/2005,02/20 Polio (OPV) 10/14/1987, 4,05/10/1983,03/10,01/07/1983 TD (STATE SUPPLIED FOR ADULT S AND CHILDREN) 10/24/1997 Tdap 08/15/2007 Family History Medical History Relation Name Comments Cholesterol Level Father CA Lung Maternal Grandfather Cholesterol Level Maternal Grandfather Stroke Maternal Grandmother Stroke Mother pfo CA Lung Paternal Grandfather Cancer, Other Paternal Grandmother ovaria n Relation Name Status Comments Brother 1 Alive Brother 2 Alive Brother 3 Alive Father Alive Maternal Grandfather Maternal Grandmother Alive Mother Alive Paternal Grandfather Paternal Grandmother Sister Alive Social History Tobacco Use Types Packs/Day Years Used Date Smoking Tobacco: Never Alcohol Use Standard Drinks/Week Comments Yes 0 (1 standard drink = 0.6 oz pur e alcohol) occas. Estimated Date of Delivery Comme nts Yes 08/06/2017 Sex Assigned at Date Recorded Not on file Last Filed Vital Signs Vital Sign Reading Time Taken Comments Blood Pressure 102/62 04/30/2017 9:08 AM EDT Pulse 80 04/30/2017 9:08 AM EDT Temperature 36.7 ??C (98 ??F) 03/15/2017 8:53 AM EDT Respiratory Rate 14 03/15/2017 8:53 AM EDT Oxygen Saturation - - Inhaled Oxygen Concentration - - Weight 62.1 kg (137 lb) 04/30/2017 9:08 AM EDT Height 154.9 cm (5' 1 ) 03/15/2017 8:53 AM EDT Body Mass Index 25.89 03/15/2017 8:53 AM EDT Plan of Treatment Health Maintenance Due Date Last Done Comments Covid-19 Vaccine (#1) 05/02/1983 TOBACCO CHECK/ADVISE 2000 DTAP/TDAP/TD (7 - Td or Tdap) 08/15/2017, 10/24/1997, 10/14/1987, Additional history exists CHOLESTEROL SCREENING 11/20/2019 11/19/2014, 003 CERVICAL CANCER SCREENING 08/31/20202016, 03/24/2016, 05/18/2007, Additional history exists BASELINE HEALTH EXAM 40-64 11/02/202203/15, 11/19/2014, 08/15/2014, Additional history exists MAMMOGRAM 2022 BMI CHECK/ADVISE 09/13/2024 INFLUENZA (Season Ended) 2025 PNEUMOCOCCAL VACCINE FOR HIG H RISK PATIENTS (#1) 2047 Care Teams Head Of Ethics And Compliance Relationship Specialty Start Date End Date Community, Pcp PCP - General Internal Medicine 10/01/20
--- OUTSIDE RECORDS SUMMARY | 2025-01-17 13:21 | XMS_ITS ---
Author Organization [facility] Address [address] [place] [phone] Care Team Providers Care Light Coil Winder Name Role Phone Sarah Montejo Primary Care Provider [phone] Allergies No Known Allergies REASON FOR VISIT New Refill Request Medications Medication SIG (Take, Route, Fr equency, Duration) Notes Start Date End Date Status Estradiol 0.025 MG/24HR 1 patch to skin Transdermal Two times a Week for 30 days Act jose Encounters Encounter Location Date Provider Diagnosis Harry Ashraf MD [address] [phone] 01/15/2025 Sarah Montejo Menopausal and femal e climacteric states N95.1 Assessments Encounter Date Diagnosis (ICD Code) Assessment Notes Treatment Notes Treatment Clinical Notes Section Notes 01/15/2025 Menopausal and female climacteric states (ICD-10 - N95.1) Plan Of Treatment Medication Medication Name Sig Start Date Stop Date Notes Estradiol 0.025 MG/24HR 1 patch to skin Transdermal Two times a Week for 30 days Next Appt Details Provider Name:Sarah Montejo , 03/29/2025 04:00:00 PM, [address] [place] [address], [phone], Provider Name:Sarah Montejo , 01/07/2026 01:00:00 PM, [address] [place] [address], [phone], Progress Notes * Sharri SIMMONSDOB: [birth year] (44 yo F)Acc No.[id number]:01/15/2025 Patient:?Sharri SIMMONS :1980???Age:44 Y???Sex:Female Address:[address] [place] [id number] * Refills? Refill Estradiol Patch Twice Weekly, 0.025 MG/24HR, Transdermal, 8, 1 patch to skin, Two times a Week, 30 days, Refills=2 Subjective: * Chief Complaints: * ???New Refill Request * Medical History:? * Surgical History:? * Hospitalization/Major Diagno stic Procedure:? * Medications:? * Allergies:?N.K.D.A.no[Allerg ies Verified] Objective: * Vitals:? Past Vitals:* 12/28/2024 Temp:96.0F, HR:62/min, BP:11 2/66mm Hg, Wt:123lbs, BMI:23.24Index, Ht:5 ft 1 in, Oxygen sat %:99% * 11/29/2024 Temp:96.8F, HR:84/min, BP:11 8/72mm Hg, Wt:121lbs, BMI:22.86Index, Ht:5 ft 1 in, Oxygen sat %:98% * 06/21/2024 Temp:97.6F, HR:109/min, Ht:5 ft 1 in, Oxygen sat %:98% * Physical Examination:? Assessment: * Assessment: 1.?Menopausal and female cli macteric states - N95.1??? Plan: * Treatment: * Procedure Codes:? * true * Date:? Generated for Julio Cesar rowell/Kalia/Faithsmitting on:?01/17/2025 01:21 PM EDT
--- OUTSIDE RECORDS SUMMARY | 2025-01-17 13:21 | XMS_ITS | Patient Health Record ---
Author Organization [facility] Address [address] [place] [phone] Support Name Relationship Address Phone Sharri Simmons Guarantor Unknown Unavailabl e REASON FOR REFERRAL No Information PLAN OF TREATMENT No Information Insurance Providers Payer Name Payer Address Payer Phone Subscriber Number Group Number Insured Name Patient Relationship to Insured Coverage Start Date Coverage End Date ANIRUDH PEDROZA [address] [place] [address] [id number] Sahrri Sandra Self - patient is the insured
--- OUTSIDE RECORDS SUMMARY | 2025-01-17 13:21 | XMS_ITS | Encounter Summary ---
Author Organization [facility] Address [address] [place] [address] Care Team Providers Care Wrap Yarn Sorter Name Role Phone Esther Lezama DO Primary Care Pro vider Unavailable [facility], Pcp Primary Care Provider Unavailabl e Reason for Visit * Reason Onset Date Comments immunizations 01/02/2015 Encounter Details Date Type Department Care Team Description 01/02/2015 Telephone Adult Medicine [address] [address] Esther Lezama DO immunizations Social History Tobacco Use Types Packs/Day Years Used Date Smoking Tobacco: Never Alcohol Use Standard Drinks/Week Comments Yes 0 (1 standard drink = 0.6 oz pur e alcohol) occas. Sex Assigned at Date Recorded Not on file documented as of this encounter Miscellaneous Notes * Telephone Encounter - Mahi Conklin - 01/02/2015 3:51 PM EDT Booked for 01/09/15 * Telephone Encounter - Shruthi Alexandre L.P.N. - 01/02/2015 3:47 PM EDT Please call pt and book appt . Thanks. * Telephone Encounter - Esther Arreaga DO - 01/02/2015 3:29 PM EDT Ordered tb test * Telephone Encounter - Uma Monique - 01/02/2015 12:36 PM EDT Payor: [employer] / Plan: HMO $20 OLNEY 1 / Product Type: HMO [id number]-ugr-[id number] Patient is requesting a list of their previous immunizations NO Does the patient have an immunization form to be completed? NO Is the patient requesting immunizations to be administered? YES If yes, which immunizations are needed? testing for tuberculosis 2-step/eneded for work Is the patient traveling to a foreign country: NO If traveling: Which country: n/a Date patient is leaving: na documented in this encounter Plan of Treatment Not on file documented as of this encounter Results * TB INTRADERMAL TEST (01/16/2015 11:18 AM EDT) PPD Induration (PPD) 0mm 01/16/2015 11:1 8 AM EDT Esther Arreaga DO LAB documented in this encounter Visit Diagnoses Diagnosis Screening examination for pulmonary tuberculosis Need for prophylactic vaccination with combined wqszagxjqa-doankbn-vbsriqlgv (DTP) vaccine documented in this encounter Care Teams Wrap Yarn Sorter Relationship Specialty Start Date End Date Esther Lezama DO PCP - General Internal Medicine 06/18/14 09/30/20 [facility] PCP - General Internal Medicine 10/01/20 documented as of this encounter
--- OUTSIDE RECORDS SUMMARY | 2025-01-17 13:21 | XMS_ITS | Encounter Summary ---
Author Organization [facility] Address [address] [place] [address] Care Team Providers Care Property Man Name Role Phone Esther Lezama DO Primary Care Pro vider Unavailable [facility], Pcp Primary Care Provider Unavailabl e Encounter Details Date Type Department Care Team Description 03/04/2015 Orders Only Adult Medicine [address] [address] Esther Lezama DO Social History Tobacco Use Types Packs/Day Years Used Date Smoking Tobacco: Never Alcohol Use Standard Drinks/Week Comments Yes 0 (1 standard drink = 0.6 oz pur e alcohol) occas. Sex Assigned at Date Recorded Not on file documented as of this encounter Plan of Treatment Not on file documented as of this encounter Visit Diagnoses Not on filedocumented in this encounter Care Teams Property Man Relationship Specialty Start Date End Date Esther Lezama DO PCP - General Internal Medicine 06/18/14 09/30/20 [facility], Pcp PCP - General Internal Medicine 10/01/20 documented as of this encounter
--- OUTSIDE RECORDS SUMMARY | 2025-01-17 13:21 | XMS_ITS ---
Author Organization [facility] Address [address] [place] [phone] Care Team Providers Care Research Lab Assistant Name Role Phone Sarah Montejo Primary Care Provider [phone] REASON FOR VISIT Intermittent leave Encounters Encounter Location Date Provider Diagnosis [facility] MD [address] [place] [address] [place] [phone] 01/15/2025 Sarah Montejo Plan Of Treatment Next Appt Details Provider Name:Sarah Montejo , 03/29/2025 04:00:00 PM, [address] [place] [address], [phone], Provider Name:Sarah Montejo , 01/07/2026 01:00:00 PM, [address] [place] [address], [phone], Progress Notes * TROYLillieivanDOB: [birth year] (44 yo F)Acc No.[id number]:01/15/2025 Patient:?Sharri SIMMONS :1980???Age:44 Y???Sex:Female Address:[address] [place] [address] [place] [address] * true * Date:? Generated for Abeli lelia/Kalia/eTransmitting on:?01/17/2025 01:20 PM EDT
--- OUTSIDE RECORDS SUMMARY | 2025-01-17 13:21 | XMS_ITS | Patient Health Record ---
Author Organization Harry Ashraf MD Address [address] [place] [address] [phone] Care Team Providers Care Ios Programmer Name Role Phone Sarah Montejo Primary Care Provider Allergies No Known Allergies Results Component Value Reference Range Notes US Pelvic Transabdominal (No t yet reviewed by provider) Interpretation: Performing Lab: Notes/Report: US Pelvic Transabdominal, US Pelvic Transvaginal Reason: Excessive menstruation. COMPARISON: None TECHNIQUE: Transabdominal and transvaginal ultrasound with grayscale and color Doppler analysis. FINDINGS: UTERUS: Size: 8.8 x 4.2 x 4.9 cm, volume 95.7 cc. Endometrial thickness: 0.8 cm. Morphology: Normal configuration and echotexture. RIGHT OVARY: Size: 2.6 x 2.1 x 2.1 cm, volume 6.2 cc. Morphology: Normal echotexture. Hemorrhagic corpus luteum measuring up to 2.0 cm. No pathologic cysts or mass. Normal color Doppler appearance. LEFT OVARY: Size: 2.9 x 1.6 x 3.0 cm, volume 7.3 cc. Morphology: Normal echotexture. No pathologic cysts or mass. Normal color Doppler appearance. ADNEXA: Trace free fluid in the right adnexa, likely physiologic. IMPRESSION: Unremarkable pelvic ultrasound. WSN: [id number] Ordering Physician: Sarah Montejo Dictated By: Lucius Miller MD US Pelvic Transabdominal, US Pelvic Transvaginal Reason: Excessive menstruation. COMPARISON: None TECHNIQUE: Transabdominal and transvaginal ultrasound with grayscale and color Doppler analysis. FINDINGS: UTERUS: Size: 8.8 x 4.2 x 4. 9 cm, volume 95.7 cc. Endometrial thickness: 0.8 cm. Morphology: Normal configuration and echotexture. RIGHT OVARY: Size: 2.6 x 2.1 x 2. 1 cm, volume 6.2 cc. Morphology: Normal echotexture. Hemorrhagic corpus luteum measuring up to 2.0 cm. No pathologic cysts or mass. Normal color Doppler appearance. LEFT OVARY: Size: 2.9 x 1.6 x 3. 0 cm, volume 7.3 cc. Morphology: Normal echotexture. No pathologic cysts or mass. Normal color Doppler appearance. ADNEXA: Trace free fluid in the right adnexa, likely physiologic. IMPRESSION: Unremarkable pelvic ultrasound. WSN: [id number] Ordering Physician: Sarah Montejo Testosterone-[id number] Reviewed date:12/05/2024 04:25:57 PM Interpretation: Performing Lab:[facility] [address] [place] [address], Phone - [phone], Director - Mohinidry Notes/Report: Testosterone 11 4-50 ng/dL Luteinizing Hormone(LH)-0042 83 Reviewed date:12/05/2024 04:25:57 PM Interpretation: Performing Lab:[facility] [address] [place] [address], Phone - [phone], Director - MDJodry Notes/Report: LH 28.1 Adult Female Range Follicular phase 2.4 - 12.6 Ovulation phase 14.0 - 95.6 Luteal phase 1.0 - 11.4 Postmenopausal 7.7 - 58.5 FSH-[id number] Reviewed date:12/05/2024 04:25:57 PM Interpretation: Performing Lab:[facility] [address] [place] [address], Phone - [phone], Director - MDJodry Notes/Report: FSH 62.9 Adult Female Range Follicular phase 3.5 - 12.5 Ovulation phase 4.7 - 21.5 Luteal phase 1.7 - 7.7 Postmenopausal 25.8 - 134.8 Prolactin-[id number] Reviewed date:12/05/2024 04:25:57 PM Interpretation: Performing Lab:[facility] [address] [place] [address], Phone - [phone], Director - Jodry Notes/Report: Prolactin 13.6 4.8-33.4 ng/mL Estrogens, Total-152089 Reviewed date:12/05/2024 04:25:57 PM Interpretation: Performing Lab:[facility] [place], [address] [place] [address], Phone - [phone], Director - Celina Notes/Report: Estrogens, Total 85 Prepubertal < 40 Female Cycle: 1-10 Days 16 - 328 11-20 Days 34 - 501 21-30 Days 48 - 350 Post-Menopausal 40 - 244 CBC With Differential/Platel et-[id number] Reviewed date:12/05/2024 04:25:57 PM Interpretation: Performing Lab:[facility] [place], [address] [place] [address], Phone - [phone], Director - Celina Notes/Report: WBC 7.1 3.4-10.8 [...] 0.0 0.0-0.1 x10E3/uL Comp. Metabolic Panel (14)-3 77924 Reviewed date:12/05/2024 04:25:57 PM Interpretation: Performing Lab:[facility] [place], [address] [place] [address], Phone - [phone], Director - Celina Notes/Report: Glucose 94 70-99 [...] (SGPT) 12 0-32 IU/L TSH reflex to Q5E-[id number] Reviewed date:12/05/2024 04:25:57 PM Interpretation: Performing Lab:[facility] [place], [address] [place] [address], Phone - [phone], Director - MDJodry Notes/Report: TSH 1.180 0.450-4.500 uIU/mL Urinalysis, Complete-[id number] Reviewed date:01/07/2025 12:56:15 PM Interpretation: Performing Lab:[facility] [place], [address] [place] [address], [place], Phone - [phone], Director - MDJodry Notes/Report: Test(s) [id number] was developed and its performance characteristics determined by [employer]. It has not been cleared or approved by the Food and Drug Administration. Test(s) 060311-u-jup619 was developed and its performance characteristics determined by [employer]. It has not been cleared or approved by the Food and Drug Administration. Specific [place] 1.017 1.005-1.030 pH 6.0 5.0-7.5 Urine-Color Yellow [...] /lpf Bacteria Few None seen/Few Measles/Mumps/Rubella Immuni ty-[id number] Reviewed date:01/07/2025 12:56:15 PM Interpretation: Performing Lab:[facility], Phone - [phone], Director - [facility] Notes/Report: Test(s) 264759-n-eev083 was developed and its performance characteristics determined by [facility]. It has not been cleared or approved [...] vaccination. HCV Antibody RFX to Quant PC R-[id number] Reviewed date:01/07/2025 12:56:15 PM Interpretation: Performing Lab:[address], Phone - [phone], Director [facility] Notes/Report: Test(s) 520457-m-aiv380 was developed and its performance characteristics determined by [facility]. It has not been cleared or approved by the Food and Drug Administration. Test(s) 316033-d-tti586 was developed and its performance characteristics determined by [facility]. It has not been cleared or approved by the Food and Drug Administration. HCV Ab Non Reactive Non Reactive Interpretation: Not infected with HCV unless early or acute infection is suspected (which may be delayed in an immunocompromised individual), or other evidence exists to indicate HCV infection. Comp. Metabolic Panel (14)-3 56919 Reviewed date:01/07/2025 12:56:15 PM Interpretation: Performing Lab:[address], Phone - [phone], Director - [facility] Notes/Report: Test(s) 498414-d-niq230 was developed and its performance characteristics determined [...] IU/L ALT (SGPT) 12 0-32 IU/L LP+Non-HDL Cholesterol-56658 5 Reviewed date:01/07/2025 12:56:15 PM Interpretation: Performing [facility], [address] [place] [address], Phone - [phone], Director - [facility] Notes/Report: Test(s) 680499-h-xlw243 was developed and its performance characteristics determined by [facility]. It has not been cleared or approved by the Food and Drug Administration. Cholesterol, Total 213 100-199 mg/dL Triglycerides 126 0-149 mg/dL HDL Cholesterol 52 >39 mg/dL VLDL Cholesterol Eric 23 5-40 mg/dL LDL Chol Calc ([facility]) 138 0-99 mg/dL Non-HDL Cholesterol 161 0-129 mg/dL Phosphorylated Tau 217 (pTau -217) Reviewed date:01/07/2025 12:56:15 PM Interpretation: Performing Lab:[facility], [address] [facility], [place], Phone - [phone], Director - [facility] Notes/Report: Test(s) 856762-c-bsc462 was developed and its performance characteristics determined by [facility]. It has not been cleared or approved by the Food and Drug Administration. p-sbk397 0.12 0.00-0.18 pg/mL Clinical cutoff value was established using samples from a patient cohort characterized with amyloid PET data. A p-auw145 value of >0.18 is a reported surrogate marker for beta amyloid pathology, and can be used to facilitate biological identification of Alzheimer's disease (1). p-wft960 has also been used in clinical trials to monitor patients on anti-amyloid therapy (2,3). Test performed by [employer] chemiluminescent enzyme immunoassay ([employer]). Values obtained with different methods cannot be used interchangeably. The validated limit of quantification is 0.06 pg/mL. Assay detection limit is 0.03 pg/mL. Footnotes 1. Manpreet Pond, et al. Diagnostic Accuracy of a Plasma Phosphorylated Tau 217 Immunoassay for Alzheimer Disease Pathology. [facility] (2023). 2. Manpreet Pond, et al. Differential roles of A42/40, p-pdq809 and p-qhu815 for Alzheimer's trial selection and disease monitoring. Nature medicine 28.12 (2021): 6087-0920. 3. Florencia MJ, Caroline M, Irma SC, et al. Association of [place] Treatment With Exploratory Plasma Biomarkers in Early Symptomatic Alzheimer Disease: A Secondary Analysis of the TRAILBLAZER-ALZ Randomized Clinical Trial . [facility]. 2021;79(12):0424-6563. XR ABDOMEN 1 VIEW Reviewed date:12/28/2024 01:08:44 PM Interpretation: Performing Lab: Notes/Report: See Note [facility], a member of [employer] History: Left-sided abdominal pain. Question constipation. Findings: [...] and distal large bowel obstruction. [facility] TRACEE ([id number]) -------- FINAL REPORT -------- Dictated By: Angelia Laguerre Dictated Date: 12/27/2024 16:09 ET Assigned Physician: Angelia Laguerre Reviewed and Electronically Signed By: Angelia Laguerre Signed Date: 12/27/2024 16:11 ET Workstation ID: [id number] Transcribed By: Self Edit Transcribed Date: 12/27/2024 [...] constipation and distal large bowel obstruction. [facility] PR ([id number]) -------- FINAL REPOR T -------- Dictated By: Angelia Laguerre Dictated Date: 12/27/2024 16:09 ET Assigned Physician: Angelia Laguerre Reviewed and Electronically Signed By: Angelia Laguerre Signed Date: 12/27/2024 16:11 ET Workstation ID: [id number] Transcribed By: Self Edit Transcribed Date: 12/27/2024 16:09 ET GI Profile, Stool, PCR-[id number] 0 Reviewed date:12/31/2024 12:00:06 PM Interpretation: Performing Lab:[facility], [address] [place] [address], [place], Phone - [phone], Director - Celina Notes/Report: Campylobacter Not Detected Not Detected C difficile toxin A/B Not Detected Not Detected Plesiomonas shigelloides Not Detected Not Detected Salmonella Not Detected Not Detected Vibrio Not Detected Not Detected Vibrio cholerae Not Detected Not Detected Yersinia enterocolitica Not Detected Not Detected Enteroaggregative E coli Not Detected Not Detected Enteropathogenic E coli Not Detected Not Detected Enterotoxigenic E coli Not Detected Not Detected Iuxem-xatyb-hcoktfvox E coli Not Detected Not Detected E [...] Not Detected Sapovirus Not Detected Not Detected CBC With Differential/Platel et-[id number] Reviewed date:01/07/2025 12:56:15 PM Interpretation: Performing Lab:[facility] [address] [facility], [place], Phone - [phone], [facility] Notes/Report: Test(s) 131196-g-bzt377 was developed and its performance characteristics determined [...] Grans (Abs) 0.0 0.0-0.1 x10E3/uL Vitamin D, 25-Dieyttc-442239 Reviewed date:01/07/2025 12:56:15 PM Interpretation: Performing Lab:[facility], [place], Phone - [phone], Director - Celina Notes/Report: Test(s) 964743-m-hef563 was developed and its performance characteristics determined by [facility]. It has not been cleared or approved by the Food and Drug Administration. Vitamin D, 25-Hydroxy 25.5 30.0-100.0 ng/mL Vitamin D deficiency has been defined by the [place] of Medicine and an Endocrine Society practice guideline as a level of serum 25-OH vitamin D less than 20 ng/mL (1,2). The Endocrine Society went on to further define vitamin D insufficiency as a level between 21 and 29 ng/mL (2). 1. IOM ([place] of Medicine). 2010. Dietary reference intakes for calcium and D. [place]: The National Academies Press. 2. Sanjeev MF, Sanjiv NC, Xavier LESLIE, et al. Evaluation, treatment, and prevention of vitamin D deficiency: an Endocrine Society clinical practice guideline. JCEM. 2010; 96(7):1911-30. TSH reflex to [id number] Reviewed date:01/07/2025 12:56:15 PM Interpretation: Performing Lab:[facility], [address] [place] [address], [place], Phone - [phone], Director - Celina Notes/Report: Test(s) 969354-k-pou151 was developed and its performance characteristics determined by [employer]. It has not been cleared or approved by the Food and Drug Administration. TSH 1.880 0.450-4.500 uIU/mL US Pelvic Transvaginal (Not yet reviewed by provider) Interpretation: Performing Lab: Notes/Report: US Pelvic Transabdominal, US Pelvic Transvaginal Reason: Excessive menstruation. COMPARISON: None TECHNIQUE: Transabdominal and transvaginal ultrasound with grayscale and color Doppler analysis. FINDINGS: UTERUS: Size: 8.8 x 4.2 x 4.9 cm, volume 95.7 cc. Endometrial thickness: 0.8 cm. Morphology: Normal configuration and echotexture. RIGHT OVARY: Size: 2.6 x 2.1 x 2.1 cm, volume 6.2 cc. Morphology: Normal echotexture. Hemorrhagic corpus luteum measuring up to 2.0 cm. No pathologic cysts or mass. Normal color Doppler appearance. LEFT OVARY: Size: 2.9 x 1.6 x 3.0 cm, volume 7.3 cc. Morphology: Normal echotexture. No pathologic cysts or mass. Normal color Doppler appearance. ADNEXA: Trace free fluid in the right adnexa, likely physiologic. IMPRESSION: Unremarkable pelvic ultrasound. WSN: [id number] Ordering Physician: Sarah Montejo Dictated By: Lucius Miller MD US Pelvic Transabdominal, US Pelvic Transvaginal Reason: Excessive menstruation. COMPARISON: None TECHNIQUE: Transabdominal and transvaginal ultrasound with grayscale and color Doppler analysis. FINDINGS: UTERUS: Size: 8.8 x 4.2 x 4. 9 cm, volume 95.7 cc. Endometrial thickness: 0.8 cm. Morphology: Normal configuration and echotexture. RIGHT OVARY: Size: 2.6 x 2.1 x 2. 1 cm, volume 6.2 cc. Morphology: Normal echotexture. Hemorrhagic corpus luteum measuring up to 2.0 cm. No pathologic cysts or mass. Normal color Doppler appearance. LEFT OVARY: Size: 2.9 x 1.6 x 3. 0 cm, volume 7.3 cc. Morphology: Normal echotexture. No pathologic cysts or mass. Normal color Doppler appearance. ADNEXA: Trace free fluid in the right adnexa, likely physiologic. IMPRESSION: Unremarkable pelvic ultrasound. WSN: [id number] Ordering Physician: Sarah Montejo MR Pituitary (Not yet review ed by provider) Interpretation: Performing Lab: Notes/Report: Original Report EXAM: MR PITUITARY WITHOUT AND WITH CONTRAST INDICATION: Ovarian dysfunction TECHNIQUE: Multiplanar multisequence imaging of the brain with thin sections through the sella are obtained, without and with administration of 12 mL of Dotarem into the left antecubital vein. COMPARISON: None. FINDINGS: There are no space-occupying mass lesions seen within the brain. No midline shift, mass effect or hemorrhage is seen. Ventricular system is symmetrical, without hydrocephalus. No diffusion abnormalities are seen. Thin sections obtained through the sella, demonstrates normal shape and size to the pituitary gland. Homogeneous enhancement is present. The pituitary infundibulum is in the midline. No intrasellar or suprasellar mass lesions are seen. The exam is insensitive to detect tiny microadenomas less than 2 mm in diameter. There is slight asymmetry seen to the shape of the gland which could be developmental in nature. There is no compromise of the suprasellar cistern or optic chiasm. Normal signal flow voids are seen along the major intracranial arteries and cavernous ICA. There is no pathologic enhancement seen within the brain parenchyma or the meninges following intravenous gadolinium administration. The orbits are preserved. Minor mucosal thickening is seen within the ethmoid sinuses. IMPRESSION: 1. No intrasellar pathology seen. Slight asymmetry noted to the shape of the gland, could be developmental in nature. 2. No acute intracranial pathology seen. Read by: Franky Lebron M.D. Reviewed and Electronically Signed by: Franky Lebron M.D. - Original Report EXAM: MR PITUITARY WITHOUT AND WITH CONTRAST INDICATION: Ovarian dysfunction TECHNIQUE: Multiplanar multisequence imaging of the brain with thin sections through the sella ar e obtained, without and with administration of 12 mL of Dotarem into the lef t antecubital vein. COMPARISON: None. FINDINGS: There are no space-occupying mass lesions seen within the brain. No midline shift, mass effect or hemorrhage is seen. Ventricular system is symmetrical, without hydrocephalus. No diffusion abnormalities are seen. Thin sections obtained through the sella, demonstrates normal shape and size to the pituitary gland. Homogeneous enhancement is present. The pituitary infundibulum is in the midline. No intrasellar or suprasellar mass lesions are seen. The exam is insensitive to detect tiny microadenomas less than 2 mm in diameter. There is slight asymmetry seen to the shape of the gland which could be developmental in nature. There is no compromise of the suprasellar cistern or optic chiasm. Normal signal flow voids ar e seen along the major intracranial arteries and cavernous ICA. There is no pathologic enhancement seen within the brain parenchyma or the meninges following intravenous gadolinium administration. The orbits are preserved. Minor mucosal thickening is seen within the ethmoid sinuses. IMPRESSION: 1. No intrasellar pathology seen. Slight asymmetry noted to the shape of the gland, could be developmental in nature. 2. No acute intracranial pathology seen. Read by: Franky Lebron M.D. Reviewed and Electronically Signed by: Franky Lebron M.D. Reason For Referral Reason colonoscopy needs ea rly for 1st degree relative with colon cancer faxed Diagnosis 1 Family history of ma lignant neoplasm of digestive organs (Z80.0) Referral Organization [facility] Referring Provider First Name Sarah Referring Provider Last Name Nikia Referring Provider Speciality Nurse Prac bobbyioner Referred Provider Madison Phillips Referred Provider Specialty Gastroentero logy General Notes [facility] Gu[facility]upe 11/12 08:34:59 AM >faxed, [facility] Guadalupe 12/06/2024 08:30:56 AM >Appt confirmation fax, Booked wJoni ENGLE Sas 12/27/24 @ 1140am Referral Priority Routine Referral Appointment Date 12/27/2024 Medications Medication SIG (Take, Route, Frequency, Duration) Notes Start Date End Date Status Ondansetron 4 MG TAKE 1 TABLET BY BEN TH EVERY 8 HOURS Oral daily for 30 days Active Estradiol 0.025 MG/24HR 1 patch to skin Transdermal Two times a Week for 30 days Active Levothyroxine Sodium 100 [...] Once a day for 30 days Active Propranolol HCl 40 MG 1 tablet Orally on ce a day for 90 days Active Naproxen 500 MG 1 tablet with food o r milk as needed Orally every 12 hrs for 30 days Active Immunizations Vaccine Route Administration Date Status Comme nts Td (adult), absorbed Unknown 10/24/1997 Administered OPV Unknown 10/14/1987 Administered OPV Unknown 06/08/1984 Administered OPV Unknown 05/10/1983 Administered OPV Unknown 03/10/1983 Administered OPV Unknown 01/07/1983 Administered MMR Unknown 01/04/1996 Administered MMR Unknown 02/03/1984 Administered Influenza-Afluria (IIV4) Unknown 06/29/2018 Administere d *Tdap Unknown 06/23/2017 Administered *Tdap Unknown 12/15/2016 Administered DTP Unknown 10/14/1987 Administered DTP Unknown 06/08/1984 Administered DTP Unknown 05/10/1983 Administered DTP Unknown 03/10/1983 Administered DTP Unknown 01/07/1983 Administered Hep B, adolescent or pediatr ic (11-19), 3 dose schedule Unknown 01/19/1996 Administered Hep B, adolescent or pediatr ic (11-19), 3 dose schedule Unknown 09/29/1995 Administered Meningococcal MPSV4 Unknown 02/20/2003 Administered *Tdap Unknown 05/01/2020 Administered XASTF-62-Fqiutjz Vaccine Unknown 01/03/2021 Administere d Social History Tobacco Use: Social History Observation [...] Notes Problem Disorder of endocrine ovary (disorder) (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) Other ovarian dysfunction (E28.8) Active confirmed Problem Vitamin D deficiency (56287681) Vitamin D deficiency, unspecified (E55.9) Active confirmed Problem Mixed hyperlipidemia (249110449) Mixed hyperlipidemia (E78.2) Active confirmed Problem Postoperative Hypothyroidism (77652765) Postprocedural hypothyroidism (E89.0) Active confirmed Problem Mild major depression, single episode (38230852) Major depressive disorder, single episode, mild (F32.0) Active confirmed Problem Generalized anxiety disorder (46938026) Generalized anxiety disorder (F41.1) Active confirmed Problem Attention deficit hyperactivity disorder, combined type (05513567) Attention-deficit hyperactivity disorder, combined type (F90.2) Active confirmed Problem Ophthalmoplegic migraine, 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 Problem Episodic tension-type headache (554005944) Episodic tension-type headache, not intractable (G44.219) Active confirmed Problem Vestibular disorder (84252306) Other disorders of vestibular function, 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) Active confirmed Problem Allergic rhinitis caused by pollen (disorder) (26491117) Allergic rhinitis due to pollen (J30.1) Active confirmed Problem Recurrent oral aphthae (103373344) 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) Active confirmed Problem Intermenstrual bleeding - irregular (50089542) Excessive and frequent menstruation with irregular cycle (N92.1) Active confirmed Problem Menopause (208988139) Menopausal and female climacteric states (N95.1) Active confirmed Problem Paresthesia (finding) (60593585) Paresthesia of skin (R20.2) Active confirmed Problem Abnormal gait (63611456) Unsteadiness on feet (R26.81) Active confirmed Problem Acquired absence (73716379) 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) Active confirmed Problem Chronic idiopathic constipation (85200997) Chronic idiopathic constipation (K59.04) Active confirmed Vital Signs Heart Rate 62 /min 12/28/2024 Temperature 96.0 degrees Fahrenheit 12/28/2024 Blood pressure diastolic 66 mm Hg 12/28/2024 Oximetry 99 % 12/28/2024 Height 5 ft 1 in in 12/28/2024 Blood pressure systolic 112 mm Hg 12/28/2024 Weight 123 lbs 12/28/2024 BMI 23.24 kg/m2 12/28/2024 Encounters Encounter Location Date Provider Diagnosis Harry Ashraf MD [address] [id number] 02/03/2024 Sarah Montejo Acute maxillary sinusitis, unspecified J01.00 Harry Ashraf MD [address] [id number] 03/01/2024 Sarah Ashraf MD [address] [id number] 05/24/2024 Sarah Montejo Other disorders of vestibular function, bilateral H81.8X3 ; Dizziness and giddiness R42 ; Generalized anxiety disorder F41.1 ; Major depressive disorder, single episode, mild F32.0 ; Other specified diseases of inner ear, bilateral H83.8X3 ; Postprocedural hypothyroidism E89.0 ; Mixed hyperlipidemia E78.2 and Vitamin D deficiency, unspecified E55.9 Harry Ashraf MD [address] [id number] 06/21/2024 Sarah Montejo Zoster with other complications B02.8 and Recurrent oral aphthae K12.0 Harry Ashraf MD [address] [id number] 07/19/2024 Sarah Montejo Harry Ashraf MD [address] [id number] 07/19/2024 Sarah Montejo Generalized anxiety disorder F41.1 ; Major depressive disorder, single episode, mild F32.0 and Ophthalmoplegic migraine, not intractable G43.B0 Harry Ashraf MD [address] [id number] 11/29/2024 Sarah Sweeneye Family history of malignant neoplasm of digestive organs Z80.0 ; Chronic idiopathic constipation K59.04 ; Episodic tension-type headache, not intractable G44.219 ; Menopausal and female climacteric states N95.1 and Postprocedural hypothyroidism E89.0 Harry Ashraf MD [address] [id number] 12/28/2024 Sarah Sweeneye Encounter for genera l [...] neoplasm of cervix Z12.4 Harry Ashraf MD [address] [id number] 01/25/2024 Sarah Ashraf MD [address] [id number] 02/02/2024 Sarah Ashraf MD [address] [id number] 03/21/2024 Sarah Ashraf MD [address] [id number] 07/04/2024 Sarah Ashraf MD [address] [id number] 2024 Sarah Ashraf MD [address] [id number] 11/10/2024 Sarah Montejo Nausea R11.0 Harry Ashraf MD [address] [id number] 12/05/2024 Sarah Montejo Menopausal and femal e climacteric states N95.1 Harry Ashraf MD [address] [id number] 12/25/2024 Sarah Montejo Unspecified lump in the right breast, upper inner quadrant N63.12 Harry Ashraf MD [address] [id number] 02/03/2024 Sarahmanuel Asrhaf MD [address] [id number] 02/03/2024 Sarah Ashraf MD [address] [id number] 09/08/2024 Sarah Ashraf MD [address] [id number] 11/07/2024 Sarah Ashraf MD [address] [id number] 11/07/2024 Sarah Ashraf MD [address] [id number] 12/01/2024 Sarah Ashraf MD [address] [id number] 12/01/2024 Sarah Montejo Harry Ashraf MD [address] [id number] 01/15/2025 Sarah Montejo Menopausal and femal e climacteric states N95.1 Harry Ashraf MD [address] [id number] 01/15/2025 Sarah Montejo Assessments Encounter Date Diagnosis (ICD [...] [facility]up [facility] dry house operator in June to review extensive testing which she completed in the summer. Patient states there was mention that her symptoms may related to vestibular migraines and encouraged patient to begin vestibular rehab to see if this can help manage some of her symptoms. Provided patient with PT order for vestibular rehab and discussed locations such as [facility] in [place]. 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 Patient to continue working with the specialist to further determine underlying causes for her intermittent episodes of dizziness. 11/29/2024 Episodic tension-type headache, not intractable (ICD-10 [...] to ocular/retinal migraines. Encouraged patient to contact [facility] in [place] to schedule an eye appointment and to have her eye dilated for further evaluation as she has not had a normal eye exam in years. Patient also aware that this visit was completed via telehealth which is difficult to further evaluate and should her symptoms worsen she should make an appointment to be seen in office 05/24/2024 Generalized anxiety disorder (ICD-10 - F41.1) [...] - H83.8X3) [facility] given the brain MRI results that were suspicious for third window phenomenon as well as her symptoms of dizziness that come and go. Patient is seeing the neuro dry house operator in June to review testing results [...] - Z12.4) Patient will be seeing her flash drier operator in December to complete her pap smear [...] IGM ANTIBODY 07/15/2023 COMPLETE CBC WITH DIFF 01/13/2023 COMPLETE CBC WITH DIFF 07/15/2023 COMPLETE URINALYSIS 07/15/2023 COMPLETE URINALYSIS 01/13/2023 COMPREHENSIVE METABOLIC PANEL 07/15/2023 COMPREHENSIVE METABOLIC PANEL 01/13/2023 DHEA SULFATE 01/13/2023 ESTROGENS, TOTAL 01/13/2023 FERRITIN 07/15/2023 FSH 01/13/2023 HEMOGLOBIN A1C 01/13/2023 IRON & TIBC 07/15/2023 LH 01/13/2023 LIPID PANEL 01/13/2023 MAGNESIUM 07/15/2023 MONO W/REFLEX EBV 07/15/2023 PROGESTERONE 01/13/2023 TESTOSTERONE 01/13/2023 TSH WITH REFLEX TO FT4 01/13/2023 TSH WITH REFLEX TO FT4 07/15/2023 VITAMIN B12 07/15/2023 VITAMIN B12 01/13/2023 US Soft Tissue 01/19/2023 Mammo: Diagnostic Mammogram Right 2024 ANION GAP 01/13/2023 CO2 01/13/2023 US Pelvic Transvaginal 12/28/2024 US Pelvic Transabdominal 01/12/2025 MR Pituitary 12/28/2024 Iron and TIBC-493547 05/24/2024 Vitamin B27-919726 05/24/2024 Ferritin-586332 05/24/2024 CBC With Differential/Platelet-856478 CBC With Differential/Platelet-726741 Measles/Mumps/Rubella Immunity-619497 Vitamin D, 85-Lisyijy-113418 11/29/2023 Vitamin D, 97-Ezjjdsb-948098 05/24/2024 HCV Antibody RFX to Quant PCR-036789 GI Profile, Stool, PCR-465378 11/29/2024 Comp. Metabolic Panel ([id number] 2023 Comp. Metabolic Panel (14)-[id number] 2023 LP+Non-HDL Cholesterol-425411 05/24/2024 LP+Non-HDL Cholesterol-368754 11/29/2023 UA/M w/rflx Culture, Routine-212130 11/11 TSH reflex to C0Q-452009 11/29/2023 TSH reflex to A0Q-307156 05/24/2024 Next Appt Details Provider Name:Sarah Montejo , 03/29/2025 04:00:00 PM, [address] [place] [address], [phone], Provider Name:Sarah Montejo , 01/07/2026 01:00:00 PM, [address] [place] [address], [place], [place], [phone], Insurance Providers Payer Name Payer Address Payer Phone Subscriber Number Group Number Insured Name Patient Relationship to Insured Coverage Start Date Coverage [place] [address] [phone] [id number] Sharri Amos Self - patient is the insured [facility] [address] [place] [address] [id number] Sharri Amos Self - patient is the insured Medical (General) History Medical History History ICD Code Anxiety Depression ADHD Partial Thyroidectomy (right side) Surgical History Surgery Date(Month/Year) lipoma removal 10/06 cystoscopy 07/2023 carpal tunnel syndrome 10/2023 Hospitalization History Reason Date(Month/Year)
--- OUTSIDE RECORDS SUMMARY | 2025-01-17 13:22 | XMS_ITS ---
Author Organization Harry Ashraf MD Address [address] [place] [phone] Care Team Providers Care Vest Tailor Name Role Phone Sarah Montejo Primary Care Provider [phone] Allergies No Known Allergies Results Component Value Reference Range Notes Urinalysis, Complete-983513 Reviewed date:01/07/2025 12:56:15 PM Interpretation: Performing Lab:[facility], [address] [place] [address], [place], Phone - [phone], Director - [facility] Notes/Report: Test(s) 572142-q-uuu965 was developed and its performance characteristics determined by [employer]. It has not been cleared or approved by the Food and Drug Administration. Test(s) 675096-m-was586 was developed and its performance characteristics determined by [employer]. It has not been cleared or approved by the Food and Drug Administration. Specific [place] 1.017 1.005-1.030 pH 6.0 5.0-7.5 Urine-Color Yellow [...] Bacteria Few None seen/Few CBC With Differential/Platel et-630748 Reviewed date:01/07/2025 12:56:15 PM Interpretation: Performing Lab:[facility] [address] [place] [address], Phone - [phone], Director - [facility] Notes/Report: Test(s) 097349-x-tcs224 was developed and its performance characteristics determined by [employer]. It has not been cleared or approved [...] Grans (Abs) 0.0 0.0-0.1 x10E3/uL Measles/Mumps/Rubella Immuni ty-714337 Reviewed date:01/07/2025 12:56:15 PM Interpretation: Performing Lab:[facility], [address] [place] [address], [place], Phone - [phone], Director - [facility] Notes/Report: Test(s) 933747-g-sxo975 was developed and its performance characteristics determined by [employer]. It has not been cleared or approved [...] Mumps virus or previous vaccination. Vitamin D, 41-Vkoofgl-819097 Reviewed date:01/07/2025 12:56:15 PM Interpretation: Performing Lab:[facility] [place], [address] [place] [address], Phone - [phone], Director - [facility] Notes/Report: Test(s) 784012-b-ovj446 was developed and its performance characteristics determined by [employer]. It has not been cleared or approved by the Food and Drug Administration. Vitamin D, 25-Hydroxy 25.5 30.0-100.0 ng/mL Vitamin D deficiency has been defined by the [place] [employer] and an Endocrine Society practice guideline as a level of serum 25-OH vitamin D less than 20 ng/mL (1,2). The Endocrine Society went on to further define vitamin D insufficiency as a level between 21 and 29 ng/mL (2). 1. IOM ([place] [employer]). 2010. Dietary reference intakes for calcium and D. [place]: The National Academies Press. 2. Sanjeev MF, Sanjiv NC, Xavier LESLIE, et al. Evaluation, treatment, and prevention of vitamin D deficiency: an Endocrine Society clinical practice guideline. JCEM. 2010; 96(7):1911-30. HCV Antibody RFX to Quant PC R-[id number] Reviewed date:01/07/2025 12:56:15 PM Interpretation: Performing Lab:[facility] [place], [address] [place] [address], [place], Phone - [phone], Director - [facility] Notes/Report: Test(s) 924709-r-kdt045 was developed and its performance characteristics determined by [employer]. It has not been cleared or approved by the Food and Drug Administration. Test(s) 830286-d-fze153 was developed and its performance characteristics determined by [employer]. It has not been cleared or approved by the Food and Drug Administration. HCV Ab Non Reactive Non Reactive Interpretation: Not infected with HCV unless early or acute infection is suspected (which may be delayed in an immunocompromised individual), or other evidence exists to indicate HCV infection. Comp. Metabolic Panel (14)-[id number] 22275 Reviewed date:01/07/2025 12:56:15 PM Interpretation: Performing Lab:[facility] [place], [address] [facility], [place], Phone - [phone], Director - [facility] Notes/Report: Test(s) 064316-q-muy234 was developed and its performance characteristics determined by [employer]. It has not been cleared or approved [...] IU/L ALT (SGPT) 12 0-32 IU/L LP+Non-HDL Cholesterol-40948 5 Reviewed date:01/07/2025 12:56:15 PM Interpretation: Performing Lab:[facility], [address] [facility], [place], Phone - [phone], Director - [facility] Notes/Report: Test(s) 602940-z-wll206 was developed and its performance characteristics determined by [employer]. It has not been cleared or approved by the Food and Drug Administration. Cholesterol, Total 213 100-199 mg/dL Triglycerides 126 0-149 mg/dL HDL Cholesterol 52 >39 mg/dL VLDL Cholesterol Eric 23 5-40 mg/dL LDL Chol Calc ([facility]) 138 0-99 mg/dL Non-HDL Cholesterol 161 0-129 mg/dL TSH reflex to I3K-503814 Reviewed date:01/07/2025 12:56:15 PM Interpretation: Performing Lab:[facility] [place], [address] [facility], [place], Phone - [phone], Director - [facility] Notes/Report: Test(s) 272427-a-hxq620 was developed and its performance characteristics determined by [facility]. It has not been cleared or approved by the Food and Drug Administration. TSH 1.880 0.450-4.500 uIU/mL Phosphorylated Tau 217 (pTau -217) Reviewed date:01/07/2025 12:56:15 PM Interpretation: Performing Lab:[facility] [place], [address] [facility], [place], Phone - [phone], Director - [facility] Notes/Report: Test(s) 879373-d-mdi933 was developed and its performance characteristics determined by [facility]. It has not been cleared or approved by the Food and Drug Administration. p-emu356 0.12 0.00-0.18 pg/mL Clinical cutoff value was established using samples from a patient cohort characterized with amyloid PET data. A p-nzj467 value of >0.18 is a reported surrogate marker for beta amyloid pathology, and can be used to facilitate biological identification of Alzheimer's disease (1). p-ncv793 has also been used in clinical trials to monitor patients on anti-amyloid therapy (2,3). Test performed by [employer] chemiluminescent enzyme immunoassay (CLEIA). Values obtained with different methods cannot be used interchangeably. The validated limit of quantification is 0.06 pg/mL. Assay detection limit is 0.03 pg/mL. Footnotes 1. Manpreet Pond, et al. Diagnostic Accuracy of a Plasma Phosphorylated Tau 217 Immunoassay for Alzheimer Disease Pathology. [facility] (2023). 2. Manpreet Pond, et al. Differential roles of A42/40, p-nby494 and p-sqe593 for Alzheimer's trial selection and disease monitoring. Nature medicine 28.12 (2021): 8776-0316. 3. Florencia SINHA, Caroline M, Irma SC, et al. Association of [place] Treatment With Exploratory Plasma Biomarkers in Early Symptomatic Alzheimer Disease: A Secondary Analysis of the TRAILBLAZER-ALZ Randomized Clinical Trial . [facility]. 2021;79(12):9127-4396. US Pelvic Transvaginal (Not yet reviewed by [...] likely physiologic. IMPRESSION: Unremarkable pelvic ultrasound. WSN: [id number] Ordering Physician: Sarah Montejo Dictated By: Paul MCLEAN, Lucius Renteria US Pelvic Transabdominal, US Pelvic Transvaginal Reason: Excessive menstruation. COMPARISON: None TECHNIQUE: Transabdominal and transvaginal ultrasound with grayscale and color Doppler analysis. FINDINGS: UTERUS: Size: 8.8 x 4.2 x 4. 9 cm, volume 95.7 cc. Endometrial thicknes s: 0.8 cm. Morphology: Normal configuration and echotexture. [...] likely physiologic. IMPRESSION: Unremarkable pelvic ultrasound. WSN: [id number] Ordering Physician: Sarah Montejo MR Pituitary (Not [...] and Electronically Signed by: Franky Lebron M.D. -- Original Report --------- EXAM: MR PITUITARY WITHOUT AND WITH CONTRAST INDICATION: Ovarian dysfunction TECHNIQUE: Multiplan ar multisequence imaging of the brain with thin sections through the sella ar e obtained, without and with administration of 12 mL of Dotarem into the lef t antecubital vein. COMPARISON: None. FINDINGS: There are no space-occupying mass lesions seen within the brain. No midline shift, ma ss effect or hemorrhage is seen. Ventricular system is symmetrical, without hydrocephalus. No diffusion abnormalities are seen. Thin sections obtain ed through the sella, demonstrates normal shape and size to the pituitary gland. Homogeneous enhancement is present. The pituitary infundibulum is in t he midline. No intrasellar or suprasellar mass lesions are seen. The exam is insensitive to detect tiny microadenomas less than 2 mm in diameter. There is slight asymmetry seen to the shape of the gland which could be developmental in nature. There is no compromi se of the suprasellar cistern or optic chiasm. Normal signal flow voids ar e seen along the major intracranial arteries and cavernous ICA. There is no patholog ic enhancement seen within the brain parenchyma or [...] and Electronically Signed by: Franky Lebron M.D. 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 (E28.8) Active confirmed Problem Intermenstrual bleeding - irregular (19306369) Excessive and frequent menstruation with irregular cycle (N92.1) Active confirmed Vital Signs Temperature 96.0 degrees Fahrenheit 12/29/19 25 Blood pressure systolic 112 mm Hg 12/29/19 25 Blood pressure diastolic 66 mm Hg 025 Heart Rate 62 /min 12/28/2024 Height 5 ft 1 in in 12/28/2024 Weight 123 lbs 12/28/2024 BMI 23.24 kg/m2 12/28/2024 Oximetry 99 % 12/28/2024 Encounters Encounter Location Date Provider Diagnosis Harry Ashraf MD [address] [id number] 12/28/2024 Sarah Montejo Encounter for genera l [...] - Z12.4) Patient will be seeing her profile mill operator tape control in December to complete her pap smear [...] US Pelvic Transvaginal 12/28/2024 MR Pituitary 12/28/2024 Next Appt Details Follow Up: Annual in 1 year, Reason: Provider Name:Sarah Montejo , 03/29/2025 04:00:00 PM, [address] [place] [address], [address], [phone], Provider Name:Sarah Montejo , 01/07/2026 01:00:00 PM, [address] [place] [address], [address], [phone], Progress Notes * Fani SIMMONSB: [birth year] (44 yo F)Acc No.[id number]:12/28/2024 Patient:?Sharri SIMMONS Appointment Provider:?SUZIE Ibanez :1980???Age:44 Y???Sex:Female S upervising Provider:Sarah Montejo DNP Date:12/28/2024 Address:[address] [place] [address], [id number] Subjective: * Chief Complaints: * ???1. Annual. * HPI: ???Annual:?Pt presents today for their annual visit. She states she is up-to-date with dental cleanings and vision exams. ???BUNDLE WRAPPER:? Patient continues to notice irregular menstrual cycles [...] is scheduled next week for her annual BUNDLE WRAPPER exam and she is due for an [...] stic Procedure:?Denies Past Hospitalization. * Family History:?Father: aliv e, Colon cancer, stroke, skin cancer.?Mother: alive, [...] plan?? 3.?Postprocedural hypothyroi dism?LAB: TSH reflex to F3Y-329761 (Collection Date & Time - 12/28/2024 02:03 [...] 11.?Vitamin D deficiency, un specified?LAB: Vitamin D, 45-Dkkhwnp-201947 (Collection Date & Time - 12/28/2024 02:03 [...] 14.?Encounter for screening for cardiovascular disorders?LAB: Urinalysis, Complete-100412 (Collection Date & Time - 12/28/2024 02:03 PM) ?LAB: CBC With Differential/Platelet-925061 (Collection Date & Time - 12/28/2024 02:03 PM) ?LAB: Comp. Metabolic Panel (14)-522213 (Collection Date & Time - 12/28/2024 02:03 PM) ?LAB: LP+Non-HDL Cholesterol-294323 (Collection Date & Time - 12/28/2024 02:03 PM) Clinical Notes: Blood pressure stable. Will check for comorbidity of hyperlipidemia and hyperglycemia to further assess risk?? 15.?Encounter for immunizati on? Clinical Notes: Vaccines up-to-date?? 16.?Encounter for antibody r esponse examination?LAB: Measles/Mumps/Rubella Immunity-550038 (Collection Date & Time - 12/28/2024 02:03 PM) Clinical Notes: Titers have been checked in the past and there is immunity to rubeola?? 17.?Encounter for screening for other viral diseases?LAB: HCV Antibody RFX to Quant PCR-086865 (Collection Date & Time - 12/28/2024 02:03 [...] Clinical Notes: Patient will be seeing her profile mill operator tape control in December to complete her pap smear to ensure she is up to date with cervical cancer screenings?? * Procedure Codes:?13942 P/M C SERENA JARVIS 15 MIN * Follow Up:?Annual in 1 year * Images: Billing Information: * Visit Code:? 33798 Office Visit, Est Pt., Level 4. Modifiers: 25 G2211 Complex E/M Visit. Modifiers: 84551 Preventive Care Est Pt. Age 40-64. * Procedure Codes:? 80638 P/M METALLURGICAL ENGINEERING TECHNICIAN, INDIV 15 MIN. Review Notes: Harry Ashraf 01/03/2025 07:46:31 AM EDT > I was present and available for consultation duringthis visit. I have reviewed the encounter documentation and agree with the documentation provided by Sarah Montejo DNP including assessment, treatment plan and discussion.* Sign off status: Completed true * Appointment Provider:?SUZIE Ibanez Date:?12/28/2024 Generated for Printi ng/Fastefanog/eTransmitting on:?01/17/2025 01:21 PM EDT History and Physical Notes * HPI [...]
== END 2025-01-17 12:05 | disposition home or self-care (01) ==
LOC: HO.MAMMO 12:04
PROVIDERS: PCP Nurse Practitioner Family; Visit Provider Nurse Practitioner Family
DX: N63.12 Unspecified lump in the right breast, upper inner quadrant (principal)
CPT/HCPCS: 76642; 77061; 77065